=== PATIENT | female | born 1945 | race Two or more races ===

== ENCOUNTER 2016-11-15 09:42 | Inpatient (IN) | payer MEDICARE, OTHER ==
[2016-11-15 09:48] VITALS: BMI 22.4
[2016-11-15] MEDS ORDERED: SODIUM CHLORIDE 1,000 ML IV STA (10:00)
--- NOTE | 2016-11-15 10:00 | PDOC ---
History of Present Illness - History of Present Illness Initial Comments: 11/15/16 10:39 The patient is a 70 year old female with past medical history of Alzheimer's, GERD, acute cholecystitis (Jan 2016), hemorrhoids, and 9 hour daily home health aide, who presents to the emergency department with complaints of nausea, right lower abdominal pain, right flank pain, and a mouth full saliva today. The patient's provides the history as the patient is not engaged and the home health aide also presents at bedside. The patient was found by her crying with pain to her right lower quadrant and right suprapubic regions. The patients reports did not eat much this weekend, but states she drank a bottle of Ensure and about 8fl.oz. of Gatorade today. The patients also reports pink, foul smelling urine today. Allergies: NKDA Social history: Pt lives home with . PCP - Dr. Delcid <Inge Hutson - Last Filed: 11/15/16 10:39> - General History Source: Patient Exam Limitations: No Limitations <Cynthia Page - Last Filed: 11/15/16 15:15> - General Chief Complaint: Pain Stated Complaint: NAUSEA/VOMITING Time Seen by Provider: 11/15/16 09:53 Past History <Inge Hutson - Last Filed: 11/15/16 10:39> - Past Medical History Dementia: Yes - Psycho/Social/Smoking Cessation Hx Anxiety: No Suicidal Ideation: No Smoking History: Never smoked Have you smoked in the past 12 months: No Information on smoking cessation initiated: No Hx Alcohol Use: No Drug/Substance Use Hx: No Substance Use Type: None Hx Substance Use Treatment: No <Cynthia Page - Last Filed: 11/15/16 15:15> - Past Medical History Allergies/Adverse Reactions: Allergies Allergy/AdvReac Type Severity Reaction Status Date / Time No Known Allergies Allergy Verified 11/15/16 09:45 Home Medications: Ambulatory Orders Docusate Sodium [Colace -] 100 mg PO BID 01/22/16 Donepezil HCl [Aricept] 10 mg PO DAILY 01/22/16 Quetiapine Fumarate [Seroquel -] 50 mg PO BID 01/22/16 Mirtazapine 15 mg PO HS 11/15/16 Ranitidine [Zantac -] 150 mg PO DAILY 11/15/16 Review of Systems - Review of Systems Able to Perform ROS?: No (alzheimers) <Inge Hutson - Last Filed: 11/15/16 10:39> *Physical Exam - Vital Signs Last Vital Signs Temp Pulse Resp BP Pulse Ox 94 H 18 190/100 100 11/15/16 09:45 11/15/16 09:45 11/15/16 09:45 11/15/16 09:45 - Physical Exam Comments: 11/15/16 10:39 GENERAL: The patient is awake and confused at baseline. The patient is in no acute distress. HEAD: Normal with no signs of trauma. EYES: PERRLA, EOMI, sclera anicteric, conjunctiva clear. ENT: Ears normal, nares patent, oropharynx clear without exudates. Moist mucous membranes. NECK: Normal range of motion, supple without lymphadenopathy, JVD, or masses. LUNGS: (+) Pt is coughing on exam reproductive of clear sputum. Breath sounds equal, clear to auscultation bilaterally. No wheezes, and no crackles. HEART:Regular rate and rhythm, normal S1 and S2 without murmur, rub or gallop. ABDOMEN: (+) mild RLQ tenderness. Right sided CVA tenderness. Soft, normoactive bowel sounds. No guarding, no rebound. No masses palpable. EXTREMITIES: Normal range of motion, no edema. No clubbing or cyanosis. No erythema, or tenderness. NEUROLOGICAL: Cranial nerves II through XII grossly intact. No focal neurological deficits. SKIN: Warm, Dry, normal turgor, no rashes or lesions noted. <Inge Hutson - Last Filed: 11/15/16 10:39> - Vital Signs Last Vital Signs Temp Pulse Resp BP Pulse Ox 94 H 18 190/100 100 11/15/16 09:45 11/15/16 09:45 11/15/16 09:45 11/15/16 09:45 <Cynthia Page - Last Filed: 11/15/16 15:15> Heart Score/ECG Review #1 ECG reviewed & interpreted by me at: 11:02 General ECG Interpretation: Sinus Rhythm, Normal Rate, Normal Intervals 11/15/16 11:02 artifact v2 flattened tracing aVL <Cynthia Page - Last Filed: 11/15/16 15:15> ED Treatment Course - LABORATORY CBC & Chemistry Diagram: 11/15/16 10:18 11/15/16 10:18 <Cynthia Page - Last Filed: 11/15/16 15:15> Medical Decision Making - Medical Decision Making 11/15/16 10:00 A portion of this note was documented by scribe services under my direction. I have reviewed the details of the note, within reason, and agree with the documentation with the following case summary and management plan written by me. Nursing documentation reviewed and incorporated into medical decision making This patient is a 71-year-old female with a past medical history significant for Alzheimer's dementia, GERD, admission in January for a cactus cholecystitis (per family patient has not had an interval cholecystectomy). Patient presents emergency department with family due to abdominal pain which is been present for the past 2 days Pt awoke this morning with more severe pain (+) nausea (+) vomiting Family doesn't know if she has had a fever 11/15/16 10:55 Rectal temp 100.9 Tylenol ordered 11/15/16 10:55 11/15/16 11:36 Laboratory Tests 11/15/16 11/15/16 11/15/16 10:18 10:18 10:18 WBC 14.0 H D Hgb 13.5 D Hct 41.0 D Plt Count 258 D Neutrophils % 83.7 H D Lymphocytes % 9.7 D VBG pH 7.42 POC VBG pCO2 44.5 POC VBG pO2 26.2 L Mixed VBG HCO3 28.4 H Sodium 137 Potassium 4.0 Chloride 102 Carbon Dioxide 29 BUN 16 D Creatinine 0.8 Random Glucose 97 AST 16 ALT 26 D Creatine Kinase 85 Troponin I < 0.02 Total Amylase Lipase 11/15/16 10:18 WBC Hgb Hct Plt Count Neutrophils % Lymphocytes % VBG pH POC VBG pCO2 POC VBG pO2 Mixed VBG HCO3 Sodium Potassium Chloride Carbon Dioxide BUN Creatinine Random Glucose AST ALT Creatine Kinase Troponin I Total Amylase 120 H Lipase 496 H Of note: Amylase and Lipase are elevated 11/15/16 12:46 Laboratory Tests 11/15/16 10:18 Urine Appearance Slcloudy Urine Ketones Negative Urine Blood Negative Ur Leukocyte Esterase 2+ H Awaiting CT 11/15/16 15:12 CT demonstrates enlarged gall bladder, PCCF, no wall thickening intra hepatic ductal dilitations Will do US Will give Zosyn (pt has WBC 14, + UA, possible early cholecystitis) Will admit <Cynthia Page - Last Filed: 11/15/16 15:15> *DC/Admit/Observation/Transfer - Attestations Scribe Attestion: 11/15/16 10:42 Documentation prepared by Inge Hutson, acting as pediatric medical assistant for Cynthia Page MD <Inge Hutson - Last Filed: 11/15/16 10:39> - Discharge Dispostion Admit: Yes <Cynthia Page - Last Filed: 11/15/16 15:15> Diagnosis at time of Disposition: Pancreatitis due to biliary obstruction Qualifiers: Chronicity: acute Acute pancreatitis complication: unspecified Qualified Code(s ): K85.10 - Biliary acute pancreatitis without necrosis or infection Cholelithiasis Qualifiers: Cholelithiasis location: gallbladder Cholecystitis presence: with cholecystitis Cholecystitis acuity: unspecified acuity Biliary obstruction: with biliary obstruction Qualified Code(s): K80.01 - Calculus of gallbladder with acute cholecystitis with obstruction - Discharge Dispostion Condition at time of disposition: Stable
[2016-11-15] MEDS ORDERED: morphine CARPU-JECT 4 MG/1 ML DISP.SYRIN IVPUSH ONE (10:10)
[2016-11-15] MEDS ORDERED: ONDANSETRON 4 MG/2 ML VIAL IVPUSH ONE (10:10)
[2016-11-15] MEDS ORDERED: morphine CARPU-JECT 4 MG/1 ML DISP.SYRIN ONE (10:53)
[2016-11-15] MEDS ORDERED: ONDANSETRON 4 MG/2 ML VIAL ONE (10:53)
[2016-11-15 10:54] LABS: BASOPHIL 0.2 % (0-2.0); EOSINOPHIL 0.4 % (0-4.5); MCH 29.4 pg (25.7-33.7); MCHC 32.9 g/dl (32.0-36.0); MEAN CELL VOLUME 89.4 fl (80-96); NEUTROPHILS 83.7 % (42.8-82.8); PLATELET COUNT 258 K/MM3 (134-434)
[2016-11-15] MEDS ORDERED: ACETAMINOPHEN INJECTION 100 ML IVPB ONE (10:54)
[2016-11-15 11:01] LABS: VENOUS BLOOD GAS HCO3 28.4 meq/L (19-25); VENOUS PH 7.42 (7.32-7.42)
[2016-11-15 11:06] LABS: AMYLASE 120 U/L (25-115)
[2016-11-15 11:09] LABS: INR 1.18 (0.82-1.09)
[2016-11-15 11:11] LABS: ACTIVATED PTT 26.6 SECONDS (26.9-34.4)
[2016-11-15 11:12] LABS: ANION GAP 6 (8-16); BILIRUBIN,TOTAL 1.2 mg/dL (0.2-1.0); CALCIUM 9.8 mg/dL (8.5-10.1); CO2 29 mmol/L (21-32); CPK 85 IU/L (26-192); CREATININE 0.8 mg/dL (0.55-1.02); GLUCOSE,RANDOM 97 mg/dL (74-106); SGOT/AST 16 U/L (15-37); SGPT/ALT 26 U/L (12-78); TOT PROT 7.4 g/dl (6.4-8.2)
--- NOTE | 2016-11-15 11:12 | EKG ---
Test Reason : Blood Pressure : / mmHG Vent. Rate : 071 BPM Atrial Rate : 071 BPM P-R Int : 136 ms QRS Dur : 072 ms QT Int : 390 ms P-R-T Axes : 071 054 051 degrees QTc Int : 423 ms SUBOPTIMAL TRACING,BASELINE ARTIFACTS. NORMAL SINUS RHYTHM NONSPECIFIC T WAVE ABNORMALITY ABNORMAL ECG WHEN COMPARED WITH ECG OF 21-JAN-2016 21:51, NO SIGNIFICANT CHANGE WAS FOUND Confirmed by CHARLES CARLSON MD ([id number]) on 11/15/2016 11:12:21 AM Referred By: Confirmed By:CHARLES CARLSON MD
[2016-11-15 11:13] LABS: ALK PHOS 78 U/L (45-117)
[2016-11-15 11:14] LABS: TROPONIN I < 0.02 ng/ml (0.00-0.05)
[2016-11-15 11:40] LABS: URINE APPEARANCE SLCLOUDY; URINE BILIRUBIN NEGATIVE (NEGATIVE); URINE BLOOD NEGATIVE (NEGATIVE); URINE COLOR AMBER; URINE GLUCOSE (UA) NEGATIVE (NEGATIVE); URINE KETONE NEGATIVE (NEGATIVE); URINE NITRITE NEGATIVE (NEGATIVE); URINE UROBILINOGEN NEGATIVE mg/dL (0.2-1.0)
[2016-11-15 12:38] LABS: URINE LEUK ESTERASE 2+ (NEGATIVE); URINE PROTEIN 2+ (NEGATIVE)
[2016-11-15 13:13] LABS: URINE HYALINE CAST 5 /lpf; URINE MUCUS MANY; URINE RBC 3 /hpf (0-3); URINE WBC 48 /hpf (3-5)
[2016-11-15] MEDS ORDERED: PIPERACILLIN/TAZOB 3.375 GM/50 ML PRE-DOCKED IVPB ONE (14:35)
[2016-11-15] MEDS ORDERED: PIPERACILLIN/TAZOB 3.375 GM 50 ML IVPB ONE (14:43)
[2016-11-15] MEDS: LACTATED RINGERS SOLUTION 1,000 ML IV SCH (15:11)
[2016-11-15] MEDS ORDERED: ONDANSETRON 4 MG/2 ML VIAL IVPB PRN (15:48)
[2016-11-15] MEDS ORDERED: SODIUM CHLORIDE 1,000 ML IV SCH (16:00)
--- NOTE | 2016-11-15 16:00 | HP ---
CHIEF COMPLAINT: RLQ, SUPRAPUBIC, AND RIGHT FLANK PAIN PCP: Dr. Delcid HISTORY OF PRESENT ILLNESS: 71 y.o. F with mph of Alzheimer's, GERD, acute cholecystitis (Jan 2016), hemorrhoids, and 9 hour daily home health aide presents with RLQ abdominal pain , right flank pain, and subrapubic tenderness. Hx provided by patient's due to alzheimer's and patient is nonverbal. states patient has been having worsening RLQ abdominal and flank pain over the past 3 days. Patient has had a decreased appetite and had multiple episodes of blood tinged emesis on Monday night into Monday morning. felt patient's pain was worsening and urine was smelling foul with dysuria, so he brought her in to the ED ER course was notable for: (1)WBC-14, Amylase- 120, Lipase- 496 (2)UA- 2+ LE, 48 WBC (3)CT abd pelvis- overdistended gb with pericholecystic fluid, normal CBD, (4)US abd- slightly distended gallbladder with multiple gallstones. no evidence of choledhocolithiasis or acute cholecystitis Recent Travel: denies PAST MEDICAL HISTORY: Alzheimer's GERD Hemorrhoids PAST SURGICAL HISTORY: Colonoscopy Hemorrhoid Resection Social History: Smoking:denies Alcohol:occasional Drugs: denies Family History: DM in mother Allergies No Known Allergies Allergy (Verified 11/15/16 09:45) HOME MEDICATIONS: Home Medications Medication Instructions Recorded Docusate Sodium [Colace -] 100 mg PO BID 01/22/16 Donepezil HCl [Aricept] 10 mg PO DAILY 01/22/16 Quetiapine Fumarate [Seroquel -] 50 mg PO BID 01/22/16 Mirtazapine 15 mg PO HS 11/15/16 Ranitidine [Zantac -] 150 mg PO DAILY 11/15/16 REVIEW OF SYSTEMS CONSTITUTIONAL: Absent: fever, chills, diaphoresis, generalized weakness, malaise, loss of appetite, weight change HEENT: Absent: rhinorrhea, nasal congestion, throat pain, throat swelling, difficulty swallowing, mouth swelling, ear pain, eye pain, visual changes CARDIOVASCULAR: Absent: chest pain, syncope, palpitations, irregular heart rate, lightheadedness , peripheral edema RESPIRATORY: Absent: cough, shortness of breath, dyspnea with exertion, orthopnea, wheezing, stridor, hemoptysis GASTROINTESTINAL: Absent: abdominal pain, abdominal distension, nausea, vomiting, diarrhea, constipation, melena, hematochezia GENITOURINARY: Absent: dysuria, frequency, urgency, hesitancy, hematuria, flank pain, genital pain MUSCULOSKELETAL: Absent: myalgia, arthralgia, joint swelling, back pain, neck pain SKIN: Absent: rash, itching, pallor HEMATOLOGIC/IMMUNOLOGIC: Absent: easy bleeding, easy bruising, lymphadenopathy, frequent infections ENDOCRINE: Absent: unexplained weight gain, unexplained weight loss, heat intolerance, cold intolerance NEUROLOGIC: Absent: headache, focal weakness or paresthesias, dizziness, unsteady gait, seizure, mental status changes, bladder or bowel incontinence PSYCHIATRIC: Absent: anxiety, depression, suicidal or homicidal ideation, hallucinations. PHYSICAL EXAMINATION Vital Signs - 24 hr 11/15/16 11/15/16 11/15/16 09:45 10:43 15:10 Pulse Rate 94 H Pulse Rate [ 76 Apical] Respiratory 18 18 Rate Blood Pressure 190/100 Blood Pressure 115/75 [Right Arm] O2 Sat by Pulse 100 97 98 Oximetry (%) GENERAL: Awake, alert, and fully oriented, in no acute distress. HEAD: Normal with no signs of trauma. EYES: Pupils equal, round and reactive to light, extraocular movements intact, sclera anicteric, conjunctiva clear. No lid lag. EARS, NOSE, THROAT: Ears normal, nares patent, oropharynx clear without exudates. Moist mucous membranes. NECK: Normal range of motion, supple without lymphadenopathy, JVD, or masses. LUNGS: Breath sounds equal, clear to auscultation bilaterally. No wheezes, and no crackles. No accessory muscle use. HEART: Regular rate and rhythm, normal S1 and S2 without murmur, rub or gallop. ABDOMEN: Soft, RUQ AND RLQ TENDERNESS, RIGHT SUPRAPUBIC TENDERNESS, not distended, normoactive bowel sounds, no guarding, no rebound, no masses. No hepatomegaly or splenomegaly. MUSCULOSKELETAL: Normal range of motion at all joints. No bony deformities or tenderness. UPPER EXTREMITIES: 2+ pulses, warm, well-perfused. No cyanosis. No clubbing. No peripheral edema. LOWER EXTREMITIES: 2+ pulses, warm, well-perfused. No calf tenderness. No peripheral edema. NEUROLOGICAL: Cranial nerves II-XII intact. Normal speech. Normal gait. PSYCHIATRIC: Cooperative. Good eye contact. Appropriate mood and affect. SKIN: Warm, dry, normal turgor, no rashes or lesions noted, normal capillary refill. Laboratory Results - last 24 hr 11/15/16 11/15/16 11/15/16 10:18 10:18 10:18 WBC 14.0 H D RBC 4.59 Hgb 13.5 D Hct 41.0 D MCV 89.4 MCH 29.4 MCHC 32.9 RDW 13.0 Plt Count 258 D MPV 8.0 Neutrophils % 83.7 H D Lymphocytes % 9.7 D Monocytes % 6.0 Eosinophils % 0.4 D Basophils % 0.2 INR 1.18 H PTT (Actin FS) 26.6 L VBG pH POC VBG pCO2 POC VBG pO2 Mixed VBG HCO3 Sodium Potassium Chloride Carbon Dioxide Anion Gap BUN Creatinine Creat Clearance w eGFR Random Glucose Lactic Acid Calcium Total Bilirubin AST ALT Alkaline Phosphatase Creatine Kinase Troponin I Total Protein Albumin Total Amylase Lipase Urine Color Ofe Urine Appearance Slcloudy Urine pH 5.0 Urine Protein 2+ H Urine Glucose (UA) Negative Urine Ketones Negative Urine Blood Negative Urine Nitrite Negative Urine Bilirubin Negative Urine Urobilinogen Negative Ur Leukocyte Esterase 2+ H Urine RBC 3 Urine WBC 48 Ur Epithelial Cells Rare Hyaline Casts 5 Urine Mucus Many Blood Type Antibody Screen 11/15/16 11/15/16 11/15/16 10:18 10:18 10:18 WBC RBC Hgb Hct MCV MCH MCHC RDW Plt Count MPV Neutrophils % Lymphocytes % Monocytes % Eosinophils % Basophils % INR PTT (Actin FS) VBG pH 7.42 POC VBG pCO2 44.5 POC VBG pO2 26.2 L Mixed VBG HCO3 28.4 H Sodium 137 Potassium 4.0 Chloride 102 Carbon Dioxide 29 Anion Gap 6 L BUN 16 D Creatinine 0.8 Creat Clearance w eGFR > 60 Random Glucose 97 Lactic Acid 1.7 Calcium 9.8 Total Bilirubin 1.2 H D AST 16 ALT 26 D Alkaline Phosphatase 78 Creatine Kinase 85 Troponin I < 0.02 Total Protein 7.4 Albumin 4.0 Total Amylase Lipase Urine Color Urine Appearance Urine pH Urine Protein Urine Glucose (UA) Urine Ketones Urine Blood Urine Nitrite Urine Bilirubin Urine Urobilinogen Ur Leukocyte Esterase Urine RBC Urine WBC Ur Epithelial Cells Hyaline Casts Urine Mucus Blood Type Antibody Screen 11/15/16 11/15/16 10:18 10:18 WBC RBC Hgb Hct MCV MCH MCHC RDW Plt Count MPV Neutrophils % Lymphocytes % Monocytes % Eosinophils % Basophils % INR PTT (Actin FS) VBG pH POC VBG pCO2 POC VBG pO2 Mixed VBG HCO3 Sodium Potassium Chloride Carbon Dioxide Anion Gap BUN Creatinine Creat Clearance w eGFR Random Glucose Lactic Acid Calcium Total Bilirubin AST ALT Alkaline Phosphatase Creatine Kinase Troponin I Total Protein Albumin Total Amylase 120 H Lipase 496 H Urine Color Urine Appearance Urine pH Urine Protein Urine Glucose (UA) Urine Ketones Urine Blood Urine Nitrite Urine Bilirubin Urine Urobilinogen Ur Leukocyte Esterase Urine RBC Urine WBC Ur Epithelial Cells Hyaline Casts Urine Mucus Blood Type B POSITIVE Antibody Screen Negative ASSESSMENT/PLAN: 71 year old F with pmh of Alzheimer's, GERD, acute cholecystitis (Jan 2016) presented with RLQ, suprapubic pain, and right flank pain admitted for distended gallbladder and UTI #Distended gallbladder w/ cholelithiasis and intractable vomiting -IVF @75 cc/hr -GI consulted, Dr. Feliciano -Morphine 1 mg q4h prn -Surgery consulted, Dr. Stein -Repeat amylase and lipase in the AM #UTI -Received dose of zosyn in the ED -Continue IV zosyn 3.375 gm q8h -ID consulted, Dr. Franklin #Alzheimers -Continue aricept 10 mg po daily #Agitation -Continue seroquel 50 mg po bid #insomnia -Continue mirtazapine 15 mg po hs #GERD -Continue Zantac 150 mg po daily #FEN/GI -IVF NS @ 75 cc/hr -electrolytes wnl -NPO #Ppx -DVT- Heparin 5000 units sq BID -GI- Zantac 150 mg po daily Visit type - Emergency Visit Emergency Visit: Yes ED Registration Date: 11/15/16 Care time: The patient presented to the Emergency Department on the above date and was hospitalized for further evaluation of their emergent condition. - New Patient This patient is new to me today: Yes Date on this admission: 11/15/16 - Critical Care Critical Care patient: No
--- NOTE | 2016-11-15 16:17 | HP ---
CHIEF COMPLAINT: Abdominal pain PCP:Dr. Delcid HISTORY OF PRESENT ILLNESS: 70 yo F with significant PMhx of Alzheimer's, GERD and acute cholecystitis( ) presents today with and home health aide with 3 day history of of abdominal pain. History taken from and aide as patient limiting by severe dementia. states that for the past 3 days she has been complaining of worsening RLQ abdominal pain with associated nausea and NBNB vomiting. He appetite has diminished as well. also notes that she has been complaining of dysuria and foul smelling dark urine with no blood. denies fever, chills, melena or sick contacts. ER course was notable for: (1)WBC-14, Amylase- 120, Lipase- 496 (2)UA- 2+ LE, 48 WBC (3)CT abd pelvis- overdistended gb with pericholecystic fluid, normal CBD, (4)US abd- slightly distended gallbladder with multiple gallstones. no evidence of choledhocolithiasis or acute cholecystitis Recent Travel:Denies PAST MEDICAL HISTORY:Alzheimer's, GERD and acute cholecystitis PAST SURGICAL HISTORY:Colonoscopy and hemorrhoid resection Social History: Smoking:denies Alcohol:socially Drugs: denies Family History: Allergies No Known Allergies Allergy (Verified 11/15/16 09:45) HOME MEDICATIONS: Home Medications Medication Instructions Recorded Docusate Sodium [Colace -] 100 mg PO BID 01/22/16 Donepezil HCl [Aricept] 10 mg PO DAILY 01/22/16 Quetiapine Fumarate [Seroquel -] 50 mg PO BID 01/22/16 Mirtazapine 15 mg PO HS 11/15/16 Ranitidine [Zantac -] 150 mg PO DAILY 11/15/16 REVIEW OF SYSTEMS Unable to obtain secondary to severe dementia. PHYSICAL EXAMINATION GENERAL: Awake and alert but confused. HEAD: NC/AT EYES: Pupils equal, round and reactive to light, extraocular movements intact, sclera anicteric, conjunctiva clear. No lid lag. EARS, NOSE, THROAT: Ears normal, nares patent, oropharynx clear without exudates. Moist mucous membranes. NECK: Normal range of motion, supple without lymphadenopathy, JVD, or masses. LUNGS: Breath sounds equal, clear to auscultation bilaterally. No wheezes, and no crackles. No accessory muscle use. HEART: Regular rate and rhythm, normal S1 and S2 without murmur, rub or gallop. ABDOMEN: Soft, RLQ tenderness, not distended, normoactive bowel sounds, no guarding, no rebound, no masses. No hepatomegaly or splenomegaly. MUSCULOSKELETAL: Normal range of motion at all joints. No bony deformities or tenderness. R sided CVA tenderness. UPPER EXTREMITIES: 2+ pulses, warm, well-perfused. No cyanosis. No clubbing. No peripheral edema. LOWER EXTREMITIES: 2+ pulses, warm, well-perfused. No calf tenderness. No peripheral edema. NEUROLOGICAL: Cranial nerves II-XII intact. Normal speech. Normal gait. PSYCHIATRIC: Cooperative. Good eye contact. Appropriate mood and affect. SKIN: Warm, dry, normal turgor, no rashes or lesions noted, normal capillary refill. ASSESSMENT/PLAN: 70 yo F with significant PMhx of Alzheimer's, GERD and acute cholecystitis( ) admitted for intractable abdominal pain. Problem List - Problem (1) Acute cholecystitis Assessment/Plan: * Pain control * Consult Dr. Feliciano (GI) * Consult Dr. Espana (surgery) * IVF with NS @ 100ml/hr * NPO for now * Continue Zosyn. Code(s): K81.0 - ACUTE CHOLECYSTITIS (2) Alzheimer disease Assessment/Plan: * Continue Donepezil (3) UTI (urinary tract infection) Assessment/Plan: * Continue Zosyn * ID consult. Visit type - Emergency Visit Emergency Visit: Yes ED Registration Date: 11/15/16 Care time: The patient presented to the Emergency Department on the above date and was hospitalized for further evaluation of their emergent condition. - New Patient This patient is new to me today: Yes Date on this admission: 11/16/16 - Critical Care Critical Care patient: No
[2016-11-15] MEDS ORDERED: QUEtiapine FUMARATE 50 MG TABLET PO ONE (17:29)
[2016-11-15] MEDS ORDERED: QUEtiapine FUMARATE 25 MG TABLET (FP) ONE (17:30)
[2016-11-15] MEDS: SODIUM CHLORIDE 1,000 ML IV SCH ×2 (17:41→23:30)
--- NOTE | 2016-11-15 17:50 | PN ---
Teaching Attending Note Name of Resident: Chas Posadas ATTENDING PHYSICIAN STATEMENT I saw and evaluated the patient. I reviewed the resident's note and discussed the case with the resident. I agree with the resident's findings and plan as documented. SUBJECTIVE: Patient is alzhemer's disease, not aware of her surrounding. As per c/o having mid-epigastric pain. OBJECTIVE: Vital Signs Temperature Pulse Rate 76 11/15/16 15:10 Respiratory Rate 18 11/15/16 15:10 Blood Pressure 115/75 11/15/16 15:10 O2 Sat by Pulse Oximetry (%) 98 11/15/16 15:10 CBCD WBC 14.0 K/mm3 (4.0-10.0) H D 11/15/16 10:18 RBC 4.59 M/mm3 (3.60-5.2) 11/15/16 10:18 Hgb 13.5 GM/dL (10.7-15.3) D 11/15/16 10:18 Hct 41.0 % (32.4-45.2) D 11/15/16 10:18 MCV 89.4 fl (80-96) 11/15/16 10:18 MCHC 32.9 g/dl (32.0-36.0) 11/15/16 10:18 RDW 13.0 % (11.6-15.6) 11/15/16 10:18 Plt Count 258 K/MM3 (134-434) D 11/15/16 10:18 MPV 8.0 fl (7.5-11.1) 11/15/16 10:18 CMP Sodium 137 mmol/L (136-145) 11/15/16 10:18 Potassium 4.0 mmol/L (3.5-5.1) 11/15/16 10:18 Chloride 102 mmol/L (98-107) 11/15/16 10:18 Carbon Dioxide 29 mmol/L (21-32) 11/15/16 10:18 Anion Gap 6 (8-16) L 11/15/16 10:18 BUN 16 mg/dL (7-18) D 11/15/16 10:18 Creatinine 0.8 mg/dL (0.55-1.02) 11/15/16 10:18 Creat Clearance w eGFR > 60 (>60) 11/15/16 10:18 Random Glucose 97 mg/dL (74-106) 11/15/16 10:18 Calcium 9.8 mg/dL (8.5-10.1) 11/15/16 10:18 Total Bilirubin 1.2 mg/dL (0.2-1.0) H D 11/15/16 10:18 AST 16 U/L (15-37) 11/15/16 10:18 ALT 26 U/L (12-78) D 11/15/16 10:18 Alkaline Phosphatase 78 U/L (45-117) 11/15/16 10:18 Total Protein 7.4 g/dl (6.4-8.2) 11/15/16 10:18 Albumin 4.0 g/dl (3.4-5.0) 11/15/16 10:18 CARDIAC ENZYMES Creatine Kinase 85 IU/L (26-192) 11/15/16 10:18 Troponin I < 0.02 ng/ml (0.00-0.05) 11/15/16 10:18 Current Medications Generic Name Dose Route Start Last Admin Trade Name Freq PRN Reason Stop Dose Admin Donepezil HCl 10 mg 11/16/16 10:00 Aricept - PO DAILY VALE Heparin Sodium (Porcine) 5,000 unit 11/15/16 22:00 Heparin - SQ BID VALE Lactated Ringer's 1,000 mls @ 100 mls/hr 11/15/16 14:15 11/15/16 15:11 Lactated Ringers Solution IV 100 mls/hr ASDIR VALE Administration Piperacillin Sod/Tazobactam Sod 50 mls @ 100 mls/hr 11/16/16 02:00 Zosyn 3.375gm Ivpb (Pre-Docked) IVPB Q8H-IV VALE Protocol Sodium Chloride 1,000 mls @ 100 mls/hr 11/15/16 16:38 11/15/16 17:41 Normal Saline - IV Not Given ASDIR VALE Mirtazapine 15 mg 11/15/16 22:00 Remeron - PO HS VALE Morphine Sulfate 1 mg 11/15/16 16:40 Morphine Injection - IVPUSH Q4H PRN PAIN Ondansetron HCl 4 mg 11/15/16 15:48 Zofran Injection IVPB Q6H PRN NAUSEA Quetiapine Fumarate 50 mg 11/15/16 22:00 Seroquel - PO BID [facility] Ranitidine HCl 150 mg 11/16/16 10:00 Zantac - PO DAILY [facility] Home Medications Medication Instructions Recorded Docusate Sodium [Colace -] 100 mg PO BID 01/22/16 Donepezil HCl [Aricept] 10 mg PO DAILY 01/22/16 Quetiapine Fumarate [Seroquel -] 50 mg PO BID 01/22/16 Mirtazapine 15 mg PO HS 11/15/16 Ranitidine [Zantac -] 150 mg PO DAILY 11/15/16 Abdomen: Mild tenderness on palpation. ASSESSMENT AND PLAN: 71 year old F with pmh of Alzheimer's, GERD, acute cholecystitis (Jan 2016) presented with RLQ, suprapubic pain, and right flank pain admitted for distended gallbladder and UTI # Acute Intractable vomiting with distended gallbladder w/ cholelithiasis , NPO , IVF, GI consulted, Dr. Feliciano as per family, Morphine 1 mg q4h prn for pain -Surgery consulted, Dr. Stein, Repeat amylase and lipase in the AM, On IV Zosyn 3.375gm q8h # Acute UTI s/p one dose of zosyn in the ED, Continue IV zosyn 3.375 gm q8h; ID consulted, Dr. Franklin #Hx of Alzheimers continue aricept 10 mg po daily # Hx of insomnia/ Agitation/Gerd continue meds DVT Px: Heparin 5000 units sq BID GI Px: Pepcid IV
[2016-11-15] MEDS: FAMOTIDINE 20 MG/50 ML IVPB 50 ML IVPB SCH (23:29)
[2016-11-15] MEDS: MIRTAZAPINE 15 MG TABLET (FP) PO SCH (23:31)
[2016-11-15] MEDS: HEPARIN NA (PORCINE) 5,000 UNITS/ML 1ML VIAL SQ SCH (23:31)
[2016-11-15] MEDS: QUEtiapine FUMARATE 50 MG TABLET PO SCH (23:32)
[2016-11-16] MEDS ORDERED: DEXTROSE 5%-WATER - 50 ML IVPB ONE ×3 (01:23→17:25)
[2016-11-16] MEDS ORDERED: PIPERACILLIN/TAZOBACTAM 3.375 GM VIAL IVPB ONE ×3 (01:23→17:25)
[2016-11-16] MEDS: PIPERACILLIN/TAZOB 3.375 GM 3.375 GM in DEXTROSE 5%-WATER - 50 ML IVPB SCH ×3 (01:31→19:00)
[2016-11-16] MEDS ORDERED: PIPERACILLIN/TAZOB 3.375 GM 50 ML IVPB SCH (02:00)
[2016-11-16] MEDS: morphine CARPU-JECT 2 MG/1 ML DISP.SYRIN IVPUSH PRN ×3 (05:00→15:31)
--- NOTE | 2016-11-16 08:01 | PN ---
Progress Note (short form) - Note Progress Note: Attending Surgeon Patient seen and evaluated w/ at bedside; full note to follow.
[2016-11-16] MEDS ORDERED: QUEtiapine FUMARATE 25 MG TABLET (FP) ONE ×2 (08:17→21:16)
[2016-11-16] MEDS ORDERED: PT OWN MED DRAWER 7, Y5N ONE (08:17)
[2016-11-16 08:21] LABS: BASOPHIL 0.5 % (0-2.0); EOSINOPHIL 1.3 % (0-4.5); MCH 30.2 pg (25.7-33.7); MCHC 33.9 g/dl (32.0-36.0); MEAN CELL VOLUME 89.1 fl (80-96); MEAN PLT VOLUME 8.3 fl (7.5-11.1); NEUTROPHILS 83.8 % (42.8-82.8); PLATELET COUNT 176 K/MM3 (134-434); WHITE BLOOD COUNT 10.3 K/mm3 (4.0-10.0)
[2016-11-16 08:49] LABS: ALBUMIN 3.2 g/dl (3.4-5.0); ALK PHOS 143 U/L (45-117); AMYLASE 71 U/L (25-115); ANION GAP 6 (8-16); BILIRUBIN,TOTAL 1.5 mg/dL (0.2-1.0); CALCIUM 8.6 mg/dL (8.5-10.1); CO2 31 mmol/L (21-32); GLUCOSE,RANDOM 122 mg/dL (74-106)
[2016-11-16 08:51] LABS: CREATININE 0.7 mg/dL (0.55-1.02); SGOT/AST 208 U/L (15-37); SGPT/ALT 141 U/L (12-78); TOT PROT 6.1 g/dl (6.4-8.2)
[2016-11-16] MEDS: FAMOTIDINE 20 MG/50 ML IVPB 50 ML IVPB SCH ×2 (09:11→22:27)
[2016-11-16] MEDS: HEPARIN NA (PORCINE) 5,000 UNITS/ML 1ML VIAL SQ SCH ×2 (09:12→22:27)
--- NOTE | 2016-11-16 09:49 | CONSULT ---
- Consultation REQUESTING PROVIDER: Julio RAMON CONSULT REQUEST: We have been asked to surgically evaluate this patient for abdominal pain PCP:Kenna Omer HISTORY OF PRESENT ILLNESS: 71 y/o female presented w/ ? abdominal pain ? of origin in the RUQ w/ ? nausea and/or vomiting. She was last here 01/[address] scan of the a/p was done for ? abdominal pain ? of unknown origin; this was done as she is not able to give an adequate hx. b/o her Alzheimers; she was admitted w/ " acute cholecystitis" and txed conservatively and d/c'ed to OPD f/u for an " elective" lap terrell; she never had the f/u; I obtained this hx. from the old chart and the patients ; there was also a ? w/u ? at [facility] to r/o a pancreatic malignancy which was negative a/t her PMHx: Alzheimers PSHx: GLORY Home Medications Medication Instructions Recorded Docusate Sodium [Colace -] 100 mg PO BID 01/22/16 Donepezil HCl [Aricept] 10 mg PO DAILY 01/22/16 Quetiapine Fumarate [Seroquel -] 50 mg PO BID 01/22/16 Mirtazapine 15 mg PO HS 11/15/16 Ranitidine [Zantac -] 150 mg PO DAILY 11/15/16 Allergies Allergy/AdvReac Type Severity Reaction Status Date / Time No Known Allergies Allergy Verified 11/15/16 09:45 REVIEW OF SYSTEMS: PHYSICAL EXAM: GENERAL: Awake, not alert, and not fully oriented, in no acute distress. HEAD: Normal with no signs of trauma. EYES: sclera anicteric, conjunctiva clear. ABDOMEN: Soft, nontender when distracted, not distended, normoactive bowel sounds, voluntary guarding, no rebound, no masses. No organomegaly. MUSCULOSKELETAL: Normal ROM at all joints. No bony deformities or tenderness. No CVA tenderness. UPPER EXTREMITIES: 2+ pulses, warm, well-perfused. No cyanosis. Cap refill <2 seconds. No peripheral edema. LOWER EXTREMITIES: 2+ pulses, warm, well-perfused. No calf tenderness. No peripheral edema. NEUROLOGICAL: Abnormal speech, gait not observed. PSYCH: Cooperative. Poor eye contact. Inappropriate mood and affect. SKIN: Warm, dry, normal turgor, no rashes or lesions noted. Vital Signs Temperature 98.6 F 11/16/16 08:43 Pulse Rate 79 11/16/16 08:43 Respiratory Rate 18 11/16/16 08:43 Blood Pressure 114/76 11/16/16 08:43 O2 Sat by Pulse Oximetry (%) 99 11/16/16 08:52 Lab Results WBC 10.3 K/mm3 (4.0-10.0) H 11/16/16 07:55 RBC 4.10 M/mm3 (3.60-5.2) 11/16/16 07:55 Hgb 12.4 GM/dL (10.7-15.3) 11/16/16 07:55 Hct 36.5 % (32.4-45.2) 11/16/16 07:55 MCV 89.1 fl (80-96) 11/16/16 07:55 MCHC 33.9 g/dl (32.0-36.0) 11/16/16 07:55 RDW 13.0 % (11.6-15.6) 11/16/16 07:55 Plt Count 176 K/MM3 (134-434) D 11/16/16 07:55 Sodium 141 mmol/L (136-145) 11/16/16 07:55 Potassium 3.5 mmol/L (3.5-5.1) 11/16/16 07:55 Chloride 104 mmol/L (98-107) 11/16/16 07:55 Carbon Dioxide 31 mmol/L (21-32) 11/16/16 07:55 Anion Gap 6 (8-16) L 11/16/16 07:55 BUN 10 mg/dL (7-18) D 11/16/16 07:55 Creatinine 0.7 mg/dL (0.55-1.02) 11/16/16 07:55 Random Glucose 122 mg/dL (74-106) H D 11/16/16 07:55 Calcium 8.6 mg/dL (8.5-10.1) 11/16/16 07:55 Blood Type B POSITIVE 11/15/16 10:18 Antibody Screen Negative 11/15/16 10:18 INR 1.18 (0.82-1.09) H 11/15/16 10:18 WBC normal today; LFT's elevated; imaging w/u past and present reviewed. IMP: cholelithiasis; biliary colic; r/o choledocholithiasis/acute cholecystitis PLAN: NPO/IVF/IVABS; would get HIDA scan and in light of todays elevated LFT's would get MRCP; will f/u. Cr Stein MD FACS Visit type - Case Type Case Type: ED Admission - Emergency Emergency Visit: Yes ED Registration Date: 11/15/16 Care time: The patient presented to the Emergency Department on the above date and was hospitalized for further evaluation of their emergent condition. - New patient This patient is new to me today: Yes Date on this admission: 11/16/16 - Critical Care Critical Care patient: No
[2016-11-16] MEDS ORDERED: RANITIDINE HCL 150 MG TABLET (FP) PO SCH (10:00)
[2016-11-16] MEDS: DONEPEZIL HCL 10 MG TABLET (FP) PO SCH (10:00)
[2016-11-16] MEDS: SODIUM CHLORIDE 1,000 ML IV SCH (10:00)
--- NOTE | 2016-11-16 10:27 | PN ---
Physical Exam: SUBJECTIVE: Patient seen and examined No acute events overnight. Patient still has pain this morning. OBJECTIVE: Vital Signs Period Temp Pulse Resp BP Sys/Dubon Pulse Ox Last 24 Hr 98 F-98.6 F 69-84 16-18 111-118/50-79 99-100 GENERAL: Awake, alert, and fully oriented, in no acute distress. HEAD: Normal with no signs of trauma. EYES: Pupils equal, round and reactive to light, extraocular movements intact, sclera anicteric, conjunctiva clear. No lid lag. EARS, NOSE, THROAT: Ears normal, nares patent, oropharynx clear without exudates. Moist mucous membranes. NECK: Normal range of motion, supple without lymphadenopathy, JVD, or masses. LUNGS: Breath sounds equal, clear to auscultation bilaterally. No wheezes, and no crackles. No accessory muscle use. HEART: Regular rate and rhythm, normal S1 and S2 without murmur, rub or gallop. ABDOMEN: Soft, RUQ AND RLQ TENDERNESS, RIGHT SUPRAPUBIC TENDERNESS, not distended, normoactive bowel sounds, no guarding, no rebound, no masses. No hepatomegaly or splenomegaly. MUSCULOSKELETAL: Normal range of motion at all joints. No bony deformities or tenderness. UPPER EXTREMITIES: 2+ pulses, warm, well-perfused. No cyanosis. No clubbing. No peripheral edema. LOWER EXTREMITIES: 2+ pulses, warm, well-perfused. No calf tenderness. No peripheral edema. NEUROLOGICAL: Cranial nerves II-XII intact. Normal speech. Normal gait. PSYCHIATRIC: Cooperative. Good eye contact. Appropriate mood and affect. SKIN: Warm, dry, normal turgor, no rashes or lesions noted, normal capillary refill. Laboratory Results - last 24 hr 11/16/16 11/16/16 07:55 07:55 WBC 10.3 H RBC 4.10 Hgb 12.4 Hct 36.5 MCV 89.1 MCH 30.2 MCHC 33.9 RDW 13.0 Plt Count 176 D MPV 8.3 Neutrophils % 83.8 H Lymphocytes % 9.0 Monocytes % 5.4 Eosinophils % 1.3 D Basophils % 0.5 Sodium 141 Potassium 3.5 Chloride 104 Carbon Dioxide 31 Anion Gap 6 L BUN 10 D Creatinine 0.7 Creat Clearance w eGFR > 60 Random Glucose 122 H D Calcium 8.6 Total Bilirubin 1.5 H D AST 208 H D ALT 141 H D Alkaline Phosphatase 143 H D Total Protein 6.1 L Albumin 3.2 L Total Amylase 71 D Lipase 221 Active Medications Generic Name Dose Route Start Last Admin Trade Name Freq PRN Reason Stop Dose Admin Donepezil HCl 10 mg 11/16/16 10:00 Aricept - PO DAILY VALE Heparin Sodium (Porcine) 5,000 unit 11/15/16 22:00 11/16/16 09:12 Heparin - SQ 5,000 unit BID VALE Administration Lactated Ringer's 1,000 mls @ 100 mls/hr 11/15/16 14:15 11/15/16 15:11 Lactated Ringers Solution IV 100 mls/hr ASDIR VALE Administration Sodium Chloride 1,000 mls @ 100 mls/hr 11/15/16 16:38 11/15/16 23:30 Normal Saline - IV 100 mls/hr ASDIR VALE Administration Famotidine/Sodium Chloride 50 mls @ 100 mls/hr 11/15/16 22:00 11/16/16 09:11 Pepcid 20 Mg Premixed Ivpb - IVPB 100 mls/hr BID VALE Administration Piperacillin Sod/Tazobactam 50 mls @ 100 mls/hr 11/16/16 02:00 11/16/16 01:31 Sod 3.375 gm/ Dextrose IVPB 100 mls/hr Q8H-IV VALE Administration Lorazepam 0.5 mg 11/16/16 10:10 Ativan Injection - IVPUSH 11/16/16 10:11 ONCE ONE Mirtazapine 15 mg 11/15/16 22:00 11/15/16 23:31 Remeron - PO Not Given HS VALE Morphine Sulfate 1 mg 11/15/16 16:40 11/16/16 08:39 Morphine Injection - IVPUSH 1 mg Q4H PRN Administration PAIN Ondansetron HCl 4 mg 11/15/16 15:48 Zofran Injection IVPB Q6H PRN NAUSEA Quetiapine Fumarate 50 mg 11/15/16 22:00 11/15/16 23:32 Seroquel - PO Not Given BID [facility] ASSESSMENT/PLAN: 71 year old F with pmh of Alzheimer's, GERD, acute cholecystitis (Jan 2016) presented with RLQ, suprapubic pain, and right flank pain admitted for distended gallbladder and UTI #Distended gallbladder w/ cholelithiasis and intractable vomiting -HIDA scan concerning for possible acute cholecystitis -IVF @75 cc/hr -GI consulted, Dr. Feliciano -Morphine 1 mg q4h prn -Surgery consulted, Dr. Stein -MRCP pending -Continue IV zosyn 3.375 gm q8h #UTI -Received dose of zosyn in the ED -Continue IV zosyn 3.375 gm q8h -ID consulted, Dr. Franklin #Alzheimers -Continue aricept 10 mg po daily #Agitation -Continue seroquel 50 mg po bid #insomnia -Continue mirtazapine 15 mg po hs #GERD -Continue Zantac 150 mg po daily #FEN/GI -IVF NS @ 75 cc/hr -electrolytes wnl -NPO #Ppx -DVT- Heparin 5000 units sq BID -GI- Zantac 150 mg po daily Visit type - Emergency Visit Emergency Visit: Yes ED Registration Date: 11/15/16 Care time: The patient presented to the Emergency Department on the above date and was hospitalized for further evaluation of their emergent condition. - New Patient This patient is new to me today: No - Critical Care Critical Care patient: No
--- NOTE | 2016-11-16 11:09 | PN ---
Progress Note (short form) - Note Progress Note: ID consult dictated imp/reccd 71 year old female lives at home with and PHYSIATRIST developed vomiting and abdominal pain 2 days ago fever yesterday +RUQ pain/right flank pain imaging with sono showing gallstones and ct scan with overdistended gallbladder- small amount pericholycytic fluid this am with abnl lfts for further imaging with HIDA and MRCP seen by surgery started on zosyn last night for possible cholycystitis and possible UTI will continue Problem List - Problems (1) Acute cholecystitis Code(s): K81.0 - ACUTE CHOLECYSTITIS (2) Cholelithiasis Code(s): K80.20 - CALCULUS OF GALLBLADDER W/O CHOLECYSTITIS W/O OBSTRUCTION Qualifiers: Cholelithiasis location: gallbladder Cholecystitis presence: with cholecystitis Cholecystitis acuity: unspecified acuity Biliary obstruction: with biliary obstruction Qualified Code(s): K80.01 - Calculus of gallbladder with acute cholecystitis with obstruction (3) Alzheimer disease Code(s): G30.9 - ALZHEIMER'S DISEASE, UNSPECIFIED Qualifiers: Alzheimer's disease onset: early-onset Dementia behavioral disturbance : with behavioral disturbance Qualified Code(s): G30.0 - Alzheimer's disease with early onset; F02.81 - Dementia in other diseases classified elsewhere with behavioral disturbance
[2016-11-16] MEDS: LACTATED RINGERS SOLUTION 1,000 ML IV SCH (15:43)
[2016-11-16] MEDS: QUEtiapine FUMARATE 50 MG TABLET PO SCH ×2 (15:43→22:27)
--- NOTE | 2016-11-16 17:02 | PN ---
Teaching Attending Note Name of Resident: Chas Posadas ATTENDING PHYSICIAN STATEMENT I saw and evaluated the patient. I reviewed the resident's note and discussed the case with the resident. I agree with the resident's findings and plan as documented. SUBJECTIVE:resting comfortable. nonverbal OBJECTIVE: Last Vital Signs Temp Pulse Resp BP Pulse Ox 98.3 F 80 20 123/73 99 11/16/16 14:53 11/16/16 14:53 11/16/16 14:53 11/16/16 14:53 11/16/16 08:52 General resting comfortable. opens her eyes to verbal stimuli, CV S1 S2 RRR no murmur/rub/gallop Lungs CTA B/L anteriorly Abdomen + guarding, RUQ tenderness soft ASSESSMENT AND PLAN: 71yo F wtih PMH Alzheimer presented with RLQ and flank pain 1. Acute cholecystitis- with assoc acute transaminitis. HIDA +for acute cholecystitis. will check MRCP to evaluate for cholodocholithasis vs recently passed stone. on Zosyn day 1. IVF. cont NPO for now. pain control. will likley require cholecystectomy. ID, GI and surgery on board 2. UTI- on zosyn, f/u UCx 3. Alzheimer- nonverbal. as per present at bedside. at baseline. 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 is unable to communicate if in pain but sometimes will hold herself where she is pain. does not perform her own ADLs. cont seroquel, aricept, remeron 4. DVT ppx- hep sq
[2016-11-16] MEDS ORDERED: PIPERACILLIN/TAZOB 3.375 GM 3.375 GM in DEXTROSE 5%-WATER - 50 ML IVPB SCH (18:00)
[2016-11-16] MEDS ORDERED: PIPERACILLIN/TAZOB 3.375 GM/50 ML PRE-DOCKED IVPB SCH (18:00)
--- NOTE | 2016-11-16 20:38 | CON.GI ---
Consult Consult Specialty:: GI Reason for Consultation:: abdominal pain - History of Present Illness Chief Complaint: abdominal pain History of Present Illness: 71 F with h/o Alzheimer's, GERD, acute cholecystitis (Jan 2016) managed conservatively, admitted with RLQ pain for the past 3 days. She has had vomiting , at times blood-tinged as per . On admission WBC 14, bili, AST, ALT, Alk phos all bumped on the 14th and all started to normalize on the 15th Lipase also jamey and is now normal. HIDA positive for obstructed ccystic duct but CBD patent. 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: Dementia (uncooperative and unable to communicate intelligibly.) Hepatobiliary: Yes: Cholecystitis - Alcohol/Substance Use Hx Alcohol Use: No - Smoking History Smoking history: Never smoked Have you smoked in the past 12 months: No Home Medications - Allergies Allergies/Adverse Reactions: Allergies Allergy/AdvReac Type Severity Reaction Status Date / Time No Known Allergies Allergy Verified 11/15/16 09:45 - Home Medications Home Medications: Ambulatory Orders Docusate Sodium [Colace -] 100 mg PO BID 01/22/16 Donepezil HCl [Aricept] 10 mg PO DAILY 01/22/16 Quetiapine Fumarate [Seroquel -] 50 mg PO BID 01/22/16 Mirtazapine 15 mg PO HS 11/15/16 Ranitidine [Zantac -] 150 mg PO DAILY 11/15/16 Physical Exam-GI Vital Signs: Vital Signs Temperature 98.2 F 11/16/16 18:00 Pulse Rate 81 11/16/16 18:00 Respiratory Rate 20 11/16/16 18:00 Blood Pressure 113/59 11/16/16 18:00 O2 Sat by Pulse Oximetry (%) 99 11/16/16 08:52 Constitutional: Yes: Mild Distress HENT: Yes: Normocephalic Neck: Yes: Supple Cardiovascular: Yes: Regular Rate and Rhythm Respiratory: Yes: CTA Bilaterally Gastrointestinal Inspection: Yes: WNL ...Palpate: Yes: Soft Labs: CBC, BMP 11/16/16 07:55 11/16/16 07:55 INR, PTT INR 1.18 (0.82-1.09) H 11/15/16 10:18 Imaging - Results Cat Scan: Report Reviewed Ultrasound: Report Reviewed Other: Report Reviewed (hida) Assessment/Plan Patient with gallstone cholecystitis In MRI at this time. Management based on results. Choledocholithiasis unlikely based on HIDA Cont IV Ab, IVF, NPO Will follow
[2016-11-16] MEDS: URSODIOL 300 MG CAPSULE PO SCH (22:26)
[2016-11-16] MEDS: MIRTAZAPINE 15 MG TABLET (FP) PO SCH (22:27)
[2016-11-17] MEDS ORDERED: PIPERACILLIN/TAZOBACTAM 3.375 GM VIAL IVPB ONE ×3 (01:53→17:52)
[2016-11-17] MEDS ORDERED: DEXTROSE 5%-WATER - 50 ML IVPB ONE ×3 (01:53→17:53)
[2016-11-17] MEDS: SODIUM CHLORIDE 1,000 ML IV SCH ×2 (02:05→17:03)
[2016-11-17] MEDS: PIPERACILLIN/TAZOB 3.375 GM 3.375 GM in DEXTROSE 5%-WATER - 50 ML IVPB SCH ×3 (02:05→18:19)
[2016-11-17 08:00] LABS: BASOPHIL 0.3 % (0-2.0); EOSINOPHIL 1.9 % (0-4.5); MCH 30.4 pg (25.7-33.7); MCHC 34.2 g/dl (32.0-36.0); MEAN PLT VOLUME 8.5 fl (7.5-11.1); NEUTROPHILS 79.6 % (42.8-82.8); PLATELET COUNT 205 K/MM3 (134-434); RDW 12.7 % (11.6-15.6); WHITE BLOOD COUNT 7.3 K/mm3 (4.0-10.0)
[2016-11-17 08:03] LABS: ALBUMIN 3.2 g/dl (3.4-5.0); ALK PHOS 158 U/L (45-117); ANION GAP 8 (8-16); BILIRUBIN,TOTAL 1.2 mg/dL (0.2-1.0); CALCIUM 8.8 mg/dL (8.5-10.1); CO2 30 mmol/L (21-32); CREATININE 0.8 mg/dL (0.55-1.02); GLUCOSE,RANDOM 108 mg/dL (74-106); SGOT/AST 73 U/L (15-37); SGPT/ALT 128 U/L (12-78); TOT PROT 6.3 g/dl (6.4-8.2)
[2016-11-17] MEDS ORDERED: POTASSIUM CHLORIDE TABS 20 MEQ TABLET.ER (FP) PO ONE (09:00)
[2016-11-17] MEDS ORDERED: QUEtiapine FUMARATE 25 MG TABLET (FP) ONE ×2 (09:24→20:37)
[2016-11-17] MEDS: morphine CARPU-JECT 2 MG/1 ML DISP.SYRIN IVPUSH PRN ×2 (09:46→19:00)
[2016-11-17] MEDS: HEPARIN NA (PORCINE) 5,000 UNITS/ML 1ML VIAL SQ SCH ×2 (09:53→22:06)
[2016-11-17] MEDS: QUEtiapine FUMARATE 50 MG TABLET PO SCH ×2 (09:53→22:04)
[2016-11-17] MEDS: URSODIOL 300 MG CAPSULE PO SCH ×2 (09:53→22:06)
[2016-11-17] MEDS: DONEPEZIL HCL 10 MG TABLET (FP) PO SCH (09:53)
--- NOTE | 2016-11-17 10:50 | PN ---
Progress Note (short form) - Note Progress Note: Attending Surgeon Seen in f/u; ?? pain ?? a/t her and PATIENT MONITOR. Remains NPO; had HIDA and MRCP VSS AF abdomen-soft; ? RUQ ? tenderness to palpation but also ?? diffusely ??. WBC-wnl LFT's -essentially w/o change GI note reviewed IMP: acute cholecystitis and elevated LFT's and bilirubin PLAN: Check results of MRCP; continue present tx; decision re lap terrell pending ; d/w . Cr Setin MD FACS
[2016-11-17] MEDS: FAMOTIDINE 20 MG/50 ML IVPB 50 ML IVPB SCH ×2 (11:00→22:06)
[2016-11-17] MEDS ORDERED: POTASSIUM CHLORIDE 20 MEQ PREMIX IVPB 100 ML IVPB ONE (11:31)
[2016-11-17] MEDS ORDERED: KCL 10 MEQ IVPB 100 ML IVPB SCH (12:15)
[2016-11-17] MEDS ORDERED: HALOPERIDOL 1 MG TABLET (FP) PO PRN (15:12)
--- NOTE | 2016-11-17 15:52 | PN ---
Teaching Attending Note Name of Resident: Chas Posadas ATTENDING PHYSICIAN STATEMENT I saw and evaluated the patient. I reviewed the resident's note and discussed the case with the resident. I agree with the resident's findings and plan as documented. SUBJECTIVE:agitated. OBJECTIVE: Last Vital Signs Temp Pulse Resp BP Pulse Ox 98 F 70 20 150/90 99 11/17/16 06:00 11/17/16 06:00 11/17/16 06:00 11/17/16 06:00 11/16/16 21:00 General agitated. pulling away during exam CV S1 S2 RRR no murmur/rub/gallop Lungs CTA B/L anteriorly Abdomen will not allow abdominal exam. pushes hand away ASSESSMENT AND PLAN: 71yo F wtih PMH Alzheimer presented with RLQ and flank pain 1. Acute cholecystitis-HIDA + for acute cholecystitis. MRCP negative for choledocholithasis. NPO for likely surgery in the AM. on Zosyn day 2. IVF. ID, GI and surgery on board 2. Agitation- home medications were held due to being NPO. will allow meds with sip of ensure. received ativan last night for agitation. QTc wnl. will give haldol prn agitiation 3. UTI- on zosyn day 2, f/u UCx 4. Alzheimer- nonverbal. cont seroquel, aricept, remeron 5. DVT ppx- hep sq
[2016-11-17] MEDS: LACTATED RINGERS SOLUTION 1,000 ML IV SCH (16:31)
[2016-11-17] MEDS: KCL 10 MEQ IVPB 100 ML IVPB SCH ×2 (17:02→19:10)
--- NOTE | 2016-11-17 17:26 | PN ---
Physical Exam: SUBJECTIVE: Patient seen and examined Patient agitated overnight. Received 0.5 mg of ativan and was calm throughout. She was in pain this morning. OBJECTIVE: Vital Signs Period Temp Pulse Resp BP Sys/Dubon Pulse Ox Last 24 Hr 97.8 F-98.2 F 70-81 20-20 90-150/58-90 99 GENERAL: No acute distress. Patient confused and agitated. HEAD: Normal with no signs of trauma. EYES: Pupils equal, round and reactive to light, extraocular movements intact, sclera anicteric, conjunctiva clear. No lid lag. EARS, NOSE, THROAT: Ears normal, nares patent, oropharynx clear without exudates. Moist mucous membranes. NECK: Normal range of motion, supple without lymphadenopathy, JVD, or masses. LUNGS: Breath sounds equal, clear to auscultation bilaterally. No wheezes, and no crackles. No accessory muscle use. HEART: Regular rate and rhythm, normal S1 and S2 without murmur, rub or gallop. ABDOMEN: Soft, RUQ AND RLQ TENDERNESS, RIGHT SUPRAPUBIC TENDERNESS, not distended, normoactive bowel sounds, no guarding, no rebound, no masses. No hepatomegaly or splenomegaly. MUSCULOSKELETAL: Normal range of motion at all joints. No bony deformities or tenderness. UPPER EXTREMITIES: 2+ pulses, warm, well-perfused. No cyanosis. No clubbing. No peripheral edema. LOWER EXTREMITIES: 2+ pulses, warm, well-perfused. No calf tenderness. No peripheral edema. NEUROLOGICAL: Cranial nerves II-XII intact. Normal speech. Normal gait. PSYCHIATRIC: Cooperative. Good eye contact. Appropriate mood and affect. SKIN: Warm, dry, normal turgor, no rashes or lesions noted, normal capillary refill. Laboratory Results - last 24 hr 11/17/16 11/17/16 06:00 06:00 WBC 7.3 RBC 4.17 Hgb 12.7 Hct 37.1 MCV 89.0 MCH 30.4 MCHC 34.2 RDW 12.7 Plt Count 205 MPV 8.5 Neutrophils % 79.6 Lymphocytes % 11.9 D Monocytes % 6.3 Eosinophils % 1.9 Basophils % 0.3 Sodium 141 Potassium 3.1 L Chloride 103 Carbon Dioxide 30 Anion Gap 8 BUN 8 Creatinine 0.8 Creat Clearance w eGFR > 60 Random Glucose 108 H Calcium 8.8 Total Bilirubin 1.2 H AST 73 H D ALT 128 H Alkaline Phosphatase 158 H Total Protein 6.3 L Albumin 3.2 L Active Medications Generic Name Dose Route Start Last Admin Trade Name Freq PRN Reason Stop Dose Admin Donepezil HCl 10 mg 11/16/16 10:00 11/17/16 09:53 Aricept - PO 10 mg DAILY VALE Administration Haloperidol 0.5 mg 11/17/16 15:12 Haldol - PO TID PRN AGITATION Heparin Sodium (Porcine) 5,000 unit 11/15/16 22:00 11/17/16 09:53 Heparin - SQ 5,000 unit BID VALE Administration Lactated Ringer's 1,000 mls @ 100 mls/hr 11/15/16 14:15 11/17/16 16:31 Lactated Ringers Solution IV Not Given ASDIR VALE Sodium Chloride 1,000 mls @ 100 mls/hr 11/15/16 16:38 11/17/16 17:03 Normal Saline - IV 100 mls/hr ASDIR VALE Administration Famotidine/Sodium Chloride 50 mls @ 100 mls/hr 11/15/16 22:00 11/17/16 11:00 Pepcid 20 Mg Premixed Ivpb - IVPB 100 mls/hr BID VALE Administration Piperacillin Sod/Tazobactam 50 mls @ 100 mls/hr 11/16/16 18:00 11/17/16 09:50 Sod 3.375 gm/ Dextrose IVPB 100 mls/hr Q8H-IV VALE Administration Potassium Chloride 100 mls @ 100 mls/hr 11/17/16 16:45 11/17/16 17:02 Potassium Chloride 10 Meq Premix Ivpb - IVPB 11/17/16 18:44 100 mls/hr Q1H VALE Administration Mirtazapine 15 mg 11/15/16 22:00 11/16/16 22:27 Remeron - PO Not Given HS VALE Morphine Sulfate 1 mg 11/15/16 16:40 11/17/16 09:46 Morphine Injection - IVPUSH 1 mg Q4H PRN Administration PAIN Ondansetron HCl 4 mg 11/15/16 15:48 Zofran Injection IVPB Q6H PRN NAUSEA Quetiapine Fumarate 50 mg 11/15/16 22:00 11/17/16 09:53 Seroquel - PO 50 mg BID VALE Administration Ursodiol 300 mg 11/16/16 22:00 11/17/16 09:53 Actigal - PO 300 mg BID VALE Administration ASSESSMENT/PLAN: 71 year old F with pmh of Alzheimer's, GERD, acute cholecystitis (Jan 2016) presented with RLQ, suprapubic pain, and right flank pain admitted for distended gallbladder and UTI #Acute cholecystitis -HIDA scan concerning for possible acute cholecystitis -IVF @75 cc/hr -GI consulted, Dr. Feliciano -Morphine 1 mg q4h prn -Surgery consulted, Dr. Stein -MRCP reveals no choledocholithiasis. Patient will be npo after midnight -Continue IV zosyn 3.375 gm q8h #UTI -Received dose of zosyn in the ED -Continue IV zosyn 3.375 gm q8h -ID consulted, Dr. Franklin #Alzheimers -Continue aricept 10 mg po daily #Agitation -Continue seroquel 50 mg po bid #insomnia -Continue mirtazapine 15 mg po hs #GERD -Continue Zantac 150 mg po daily #FEN/GI -IVF NS @ 75 cc/hr -electrolytes wnl -NPO #Ppx -DVT- Heparin 5000 units sq BID -GI- Zantac 150 mg po daily Visit type - Emergency Visit Emergency Visit: Yes ED Registration Date: 11/15/16 Care time: The patient presented to the Emergency Department on the above date and was hospitalized for further evaluation of their emergent condition. - New Patient This patient is new to me today: No - Critical Care Critical Care patient: No
--- NOTE | 2016-11-17 19:03 | PN ---
Progress Note (short form) - Note Progress Note: Patient seen MRCP discussed with Dr Argueta Negative for stone in CBD For possible surgery Keep NPO
[2016-11-17] MEDS: MIRTAZAPINE 15 MG TABLET (FP) PO SCH (22:04)
[2016-11-18] MEDS ORDERED: PIPERACILLIN/TAZOBACTAM 3.375 GM VIAL IVPB ONE ×4 (00:52→23:53)
[2016-11-18] MEDS ORDERED: DEXTROSE 5%-WATER - 50 ML IVPB ONE ×4 (00:52→23:54)
[2016-11-18] MEDS: PIPERACILLIN/TAZOB 3.375 GM 3.375 GM in DEXTROSE 5%-WATER - 50 ML IVPB SCH ×3 (01:07→18:44)
[2016-11-18] MEDS: SODIUM CHLORIDE 1,000 ML IV SCH ×2 (01:09→18:45)
[2016-11-18] MEDS: morphine CARPU-JECT 2 MG/1 ML DISP.SYRIN IVPUSH PRN ×3 (04:53→21:21)
--- NOTE | 2016-11-18 08:16 | PN ---
Teaching Attending Note Name of Resident: Chas Posadas ATTENDING PHYSICIAN STATEMENT I saw and evaluated the patient. I reviewed the resident's note and discussed the case with the resident. I agree with the resident's findings and plan as documented. SUBJECTIVE: No specific complaints OBJECTIVE: Vitals noted ASSESSMENT AND PLAN: MRCP noted Appreciate leasing sales consultant input To OR today See resident note for full details
--- NOTE | 2016-11-18 09:04 | PN ---
Progress Note (short form) - Note Progress Note: Attending Surgeon Pre-Op Patient seen in f/u; case d/w her ; HIDA and ? PE ? are c/w acute cholecystitis; MRCP was negative for CBD stones; WBC is wnl and LFT's are trending down; patients has given informed consent for lap terrell possible open; r/b/t/a's d/w him including but not limited to conversion to open procedure; other procedures for possible bile leak; retained CBD stones etc.; he understands this as explained in Romansh and Romansh. To OR today Cr Stein MD FACS
[2016-11-18] MEDS ORDERED: QUEtiapine FUMARATE 25 MG TABLET (FP) ONE (11:02)
[2016-11-18] MEDS: QUEtiapine FUMARATE 50 MG TABLET PO SCH (11:09)
[2016-11-18] MEDS: DONEPEZIL HCL 10 MG TABLET (FP) PO SCH (11:09)
[2016-11-18] MEDS: HEPARIN NA (PORCINE) 5,000 UNITS/ML 1ML VIAL SQ SCH ×2 (11:18→21:24)
[2016-11-18] MEDS: URSODIOL 300 MG CAPSULE PO SCH ×2 (11:18→21:23)
[2016-11-18 11:38] LABS: ALK PHOS 177 U/L (45-117); ANION GAP 10 (8-16); BILIRUBIN,TOTAL 1.1 mg/dL (0.2-1.0); CALCIUM 8.7 mg/dL (8.5-10.1); CO2 27 mmol/L (21-32); CREATININE 0.6 mg/dL (0.55-1.02); GLUCOSE,RANDOM 96 mg/dL (74-106); SGOT/AST 34 U/L (15-37); SGPT/ALT 83 U/L (12-78); TOT PROT 6.1 g/dl (6.4-8.2)
[2016-11-18] MEDS: FAMOTIDINE 20 MG/50 ML IVPB 50 ML IVPB SCH ×2 (12:22→21:24)
[2016-11-18] MEDS ORDERED: MIDAZOLAM HCL 2 MG/2 ML SINGLE DOSE VIAL ONE ×2 (13:14)
[2016-11-18] MEDS ORDERED: PROPOFOL 20 ML ONE (13:15)
[2016-11-18] MEDS ORDERED: ROCURONIUM BROMIDE 50 MG/5 ML VIAL ONE ×2 (13:15→15:32)
--- NOTE | 2016-11-18 13:34 | PN ---
Physical Exam: SUBJECTIVE: Patient seen and examined No acute events overnight. No new complaints this morning. OBJECTIVE: Vital Signs Period Temp Pulse Resp BP Sys/Dubon Pulse Ox Last 24 Hr 97.1 F-98.8 F 77-103 20-20 105-146/62-71 97 GENERAL: No acute distress. Patient confused and agitated. HEAD: Normal with no signs of trauma. EYES: Pupils equal, round and reactive to light, extraocular movements intact, sclera anicteric, conjunctiva clear. No lid lag. EARS, NOSE, THROAT: Ears normal, nares patent, oropharynx clear without exudates. Moist mucous membranes. NECK: Normal range of motion, supple without lymphadenopathy, JVD, or masses. LUNGS: Breath sounds equal, clear to auscultation bilaterally. No wheezes, and no crackles. No accessory muscle use. HEART: Regular rate and rhythm, normal S1 and S2 without murmur, rub or gallop. ABDOMEN: Soft, RUQ AND RLQ TENDERNESS, RIGHT SUPRAPUBIC TENDERNESS, not distended, normoactive bowel sounds, no guarding, no rebound, no masses. No hepatomegaly or splenomegaly. MUSCULOSKELETAL: Normal range of motion at all joints. No bony deformities or tenderness. UPPER EXTREMITIES: 2+ pulses, warm, well-perfused. No cyanosis. No clubbing. No peripheral edema. LOWER EXTREMITIES: 2+ pulses, warm, well-perfused. No calf tenderness. No peripheral edema. NEUROLOGICAL: Cranial nerves II-XII intact. Normal speech. Normal gait. PSYCHIATRIC: Cooperative. Good eye contact. Appropriate mood and affect. SKIN: Warm, dry, normal turgor, no rashes or lesions noted, normal capillary refill. Laboratory Results - last 24 hr 11/18/16 10:50 Sodium 141 Potassium 2.9 L* Chloride 104 Carbon Dioxide 27 Anion Gap 10 BUN 6 L D Creatinine 0.6 D Creat Clearance w eGFR > 60 Random Glucose 96 Calcium 8.7 Total Bilirubin 1.1 H AST 34 D ALT 83 H D Alkaline Phosphatase 177 H Total Protein 6.1 L Albumin 3.0 L Active Medications Generic Name Dose Route Start Last Admin Trade Name Freq PRN Reason Stop Dose Admin Donepezil HCl 10 mg 11/16/16 10:00 11/18/16 11:09 Aricept - PO 10 mg DAILY VALE Administration Haloperidol 0.5 mg 11/17/16 15:12 Haldol - PO TID PRN AGITATION Heparin Sodium (Porcine) 5,000 unit 11/15/16 22:00 11/18/16 11:18 Heparin - SQ Not Given BID VALE Lactated Ringer's 1,000 mls @ 100 mls/hr 11/15/16 14:15 11/17/16 16:31 Lactated Ringers Solution IV Not Given ASDIR VALE Sodium Chloride 1,000 mls @ 100 mls/hr 11/15/16 16:38 11/18/16 01:09 Normal Saline - IV 100 mls/hr ASDIR VALE Administration Famotidine/Sodium Chloride 50 mls @ 100 mls/hr 11/15/16 22:00 11/18/16 12:22 Pepcid 20 Mg Premixed Ivpb - IVPB 100 mls/hr BID VALE Administration Piperacillin Sod/Tazobactam 50 mls @ 100 mls/hr 11/16/16 18:00 11/18/16 11:08 Sod 3.375 gm/ Dextrose IVPB 100 mls/hr Q8H-IV VALE Administration Potassium Chloride 100 mls @ 100 mls/hr 11/18/16 12:45 Potassium Chloride 10 Meq Premix Ivpb - IVPB 11/18/16 15:44 Q60M VALE Mirtazapine 15 mg 11/15/16 22:00 11/17/16 22:04 Remeron - PO 15 mg HS VALE Administration Morphine Sulfate 1 mg 11/15/16 16:40 11/18/16 11:32 Morphine Injection - IVPUSH 1 mg Q4H PRN Administration PAIN Ondansetron HCl 4 mg 11/15/16 15:48 Zofran Injection IVPB Q6H PRN NAUSEA Quetiapine Fumarate 50 mg 11/15/16 22:00 11/18/16 11:09 Seroquel - PO 50 mg BID VALE Administration Ursodiol 300 mg 11/16/16 22:00 11/18/16 11:18 Actigal - PO 300 mg BID VALE Administration ASSESSMENT/PLAN: 71 year old F with pmh of Alzheimer's, GERD, acute cholecystitis (Jan 2016) presented with RLQ, suprapubic pain, and right flank pain admitted for distended gallbladder and UTI #Acute cholecystitis -HIDA scan concerning for possible acute cholecystitis -IVF @75 cc/hr -GI consulted, Dr. Feliciano -Morphine 1 mg q4h prn -Surgery consulted, Dr. Stein -MRCP reveals no choledocholithiasis. Patient will be npo after midnight -Patient for surgery today -Continue IV zosyn 3.375 gm q8h #Hypokalemia -3 bags of IV 10 meq KCL riders #UTI -Received dose of zosyn in the ED -Continue IV zosyn 3.375 gm q8h -ID consulted, Dr. Franklin #Alzheimers -Continue aricept 10 mg po daily #Agitation -Continue seroquel 50 mg po bid #insomnia -Continue mirtazapine 15 mg po hs #GERD -Continue Zantac 150 mg po daily #FEN/GI -IVF NS @ 75 cc/hr -K+ 2.9 -NPO #Ppx -DVT- Heparin 5000 units sq BID -GI- Zantac 150 mg po daily Visit type - Emergency Visit Emergency Visit: Yes ED Registration Date: 11/15/16 Care time: The patient presented to the Emergency Department on the above date and was hospitalized for further evaluation of their emergent condition. - New Patient This patient is new to me today: No - Critical Care Critical Care patient: No
[2016-11-18] MEDS ORDERED: DEXAMETHASONE SOD PHOSPHATE 4 MG/1 ML VIAL ONE (14:40)
[2016-11-18] MEDS ORDERED: PHENYLEPHRINE HCL 10 MG/1 ML SINGLE DOSE VIAL ONE (15:07)
[2016-11-18] MEDS ORDERED: NEOSTIGMINE METHYLSULFATE 0.5 MG/ML - 10 ML MDV ONE (16:11)
[2016-11-18] MEDS ORDERED: GLYCOPYRROLATE 0.2 MG/1 ML VIAL ONE (16:12)
--- NOTE | 2016-11-18 16:29 | OP ---
Operative Note - Note: Operative Date: 11/18/16 Pre-Operative Diagnosis: Acute cholecystitis/cholelithiasis Operation: Laparascopic cholecystectomy Post-Operative Diagnosis: Other (Acute cholecystitis/cholelithiasis/gangrenous) Surgeon: Cr Stein Coppersmith Apprentice: Vaughn Hauser Anesthesiologist/DIRECTOR NURSES' REGISTRY: Claudia Winston Anesthesia: General Specimens Removed: gangrenous gall bladder Estimated Blood Loss (mls): 100 Drains & Tubes with Location: Fluid Volume Replaced (mls): 1,200
--- NOTE | 2016-11-18 16:30 | SURG ---
Surgery Lithographic General Worker Note Lithographic General Worker: Vaughn Hauser PA-C Date of Service: 11/18/16 Diagnosis: Acute cholecystitis/cholelithiasis/Gangrenous Procedure: Laparascopic cholecystectomy I was present for the entirety of the operative procedure. For further detail, please refer to operative report. Visit type - Case Type Case Type: ED Admission - New patient This patient is new to me today: Yes Date on this admission: 11/18/16
[2016-11-18] MEDS ORDERED: ACETAMINOPHEN 1000 MG/100 ML VIAL (NON FORMULARY) IVPB ONE (16:32)
[2016-11-18] MEDS ORDERED: LACTATED RINGERS SOLUTION 1,000 ML IV SCH ×2 (16:43→16:45)
[2016-11-18] MEDS ORDERED: ONDANSETRON 4 MG/2 ML VIAL IVPUSH PRN (16:43)
[2016-11-18] MEDS ORDERED: SODIUM CHLORIDE 1,000 ML IV SCH (16:43)
[2016-11-18] MEDS ORDERED: ONDANSETRON 4 MG/2 ML VIAL IVPB PRN (16:43)
[2016-11-18] MEDS ORDERED: HALOPERIDOL 0.5 MG TABLET PO PRN (16:43)
[2016-11-18] MEDS ORDERED: ACETAMINOPHEN INJECTION 100 ML IVPB ONE (16:52)
[2016-11-18] MEDS: KCL 10 MEQ IVPB 100 ML IVPB SCH (17:00)
[2016-11-18] MEDS: LACTATED RINGERS SOLUTION 1,000 ML IV SCH (18:45)
[2016-11-18] MEDS ORDERED: LACTATED RINGERS SOLUTION 1,000 ML with POTASSIUM CHLORIDE 40 MEQ IVPB SCH (19:43)
[2016-11-18] MEDS: DOCUSATE SODIUM 100 MG CAPSULE (FP) PO SCH (21:23)
[2016-11-18] MEDS ORDERED: DOCUSATE SODIUM 100 MG CAPSULE (FP) PO SCH (22:00)
[2016-11-18] MEDS: MIRTAZAPINE 15 MG TABLET (FP) PO SCH (22:48)
[2016-11-18] MEDS: QUEtiapine FUMARATE 25 MG TABLET (FP) PO SCH (22:48)
[2016-11-18] MEDS ORDERED: PT OWN MED DRAWER 7, Y5N ONE (23:00)
[2016-11-18] MEDS ORDERED: SODIUM CHLORIDE 1,000 ML with POTASSIUM CHLORIDE 40 MEQ IVPB SCH (23:11)
[2016-11-18] MEDS: SODIUM CHLORIDE 1,000 ML with POTASSIUM CHLORIDE 40 MEQ IV SCH (23:51)
[2016-11-19] MEDS: PIPERACILLIN/TAZOB 3.375 GM 3.375 GM in DEXTROSE 5%-WATER - 50 ML IVPB SCH ×3 (01:09→17:08)
[2016-11-19] MEDS ORDERED: PT OWN MED DRAWER 7, Y5N ONE ×3 (01:19→21:35)
[2016-11-19] MEDS: morphine CARPU-JECT 2 MG/1 ML DISP.SYRIN IVPUSH PRN ×2 (02:32→10:58)
[2016-11-19] MEDS ORDERED: HALOPERIDOL LACTATE 5 MG/ML IM ONE (03:45)
--- NOTE | 2016-11-19 03:51 | HOSP ---
Subjective - Review of Symptoms Events since last encounter: Called for hypertension and agitation. Pt was found to be agitated and pulling out IVs. BP 190s syss 5mg IV haldol ordered. Suzy mittens ordered. Will continue to monitor. Physical Examination Vital Signs: Vital Signs Temperature 99 F 11/18/16 22:00 Pulse Rate 112 H 11/18/16 22:00 Respiratory Rate 20 11/18/16 22:00 Blood Pressure 132/82 11/18/16 22:00 O2 Sat by Pulse Oximetry (%) 98 11/18/16 19:57 Labs: CBC, BMP 11/17/16 06:00 11/18/16 10:50 Visit type - Emergency Visit Emergency Visit: No - New Patient This patient is new to me today: No - Critical Care Critical Care patient: No
[2016-11-19 07:13] LABS: MCHC 35.1 g/dl (32.0-36.0); MEAN CELL VOLUME 88.3 fl (80-96); MEAN PLT VOLUME 8.1 fl (7.5-11.1); PLATELET COUNT 254 K/MM3 (134-434); RDW 12.6 % (11.6-15.6); WHITE BLOOD COUNT 10.5 K/mm3 (4.0-10.0)
[2016-11-19 07:37] LABS: ALBUMIN 2.8 g/dl (3.4-5.0); ANION GAP 10 (8-16); BILIRUBIN,TOTAL 0.9 mg/dL (0.2-1.0); CALCIUM 8.5 mg/dL (8.5-10.1); CO2 27 mmol/L (21-32); CREATININE 0.5 mg/dL (0.55-1.02); GLUCOSE,RANDOM 130 mg/dL (74-106); SGOT/AST 48 U/L (15-37); SGPT/ALT 81 U/L (12-78); TOT PROT 5.8 g/dl (6.4-8.2)
[2016-11-19 07:38] LABS: ALK PHOS 163 U/L (45-117)
--- NOTE | 2016-11-19 08:15 | PN ---
Physical Exam: SUBJECTIVE: Patient seen and examined Family at bedside They understand plan of care OBJECTIVE: Vital Signs Period Temp Pulse Resp BP Sys/Dubon Pulse Ox Last 24 Hr 97 F-102 F 63-112 15-20 92-132/56-82 95-100 GEN: Awake, alert, NAD PULM: CTAB CVS: RRR ABD: Soft, minimal tendernss on deep palpation, NABS EXTREM: Warm, well perfused Laboratory Results - last 24 hr 11/18/16 11/19/16 11/19/16 10:50 06:00 06:00 WBC 10.5 H D RBC 3.84 Hgb 11.9 Hct 33.9 MCV 88.3 MCH 31.0 MCHC 35.1 RDW 12.6 Plt Count 254 D MPV 8.1 Neutrophils % Y Lymphocytes % Y Sodium 141 144 Potassium 2.9 L* 3.3 L Chloride 104 107 Carbon Dioxide 27 27 Anion Gap 10 10 BUN 6 L D 5 L Creatinine 0.6 D 0.5 L Creat Clearance w eGFR > 60 > 60 Random Glucose 96 130 H D Calcium 8.7 8.5 Total Bilirubin 1.1 H 0.9 AST 34 D 48 H D ALT 83 H D 81 H Alkaline Phosphatase 177 H 163 H Total Protein 6.1 L 5.8 L Albumin 3.0 L 2.8 L Active Medications Generic Name Dose Route Start Last Admin Trade Name Freq PRN Reason Stop Dose Admin Docusate Sodium 100 mg 11/18/16 22:00 11/18/16 21:23 Colace - PO Not Given BID VALE Donepezil HCl 10 mg 11/19/16 10:00 Aricept - PO DAILY VALE Haloperidol 0.5 mg 11/18/16 16:43 Haldol - PO TID PRN AGITATION Heparin Sodium (Porcine) 5,000 unit 11/18/16 22:00 11/18/16 21:24 Heparin - SQ 5,000 unit BID VALE Administration Famotidine/Sodium Chloride 50 mls @ 100 mls/hr 11/18/16 22:00 11/18/16 21:24 Pepcid 20 Mg Premixed Ivpb - IVPB 100 mls/hr BID VALE Administration Piperacillin Sod/Tazobactam 50 mls @ 100 mls/hr 11/18/16 18:00 11/19/16 01:09 Sod 3.375 gm/ Dextrose IVPB 100 mls/hr Q8H-IV VALE Administration Potassium Chloride 40 meq/ 1,020 mls @ 100 mls/hr 11/18/16 23:16 11/18/16 23:51 Sodium Chloride IV 100 mls/hr Q10H VALE Administration Mirtazapine 15 mg 11/18/16 22:00 11/18/16 22:48 Remeron - PO Not Given HS VALE Morphine Sulfate 1 mg 11/18/16 16:43 11/19/16 02:32 Morphine Injection - IVPUSH 1 mg Q4H PRN Administration PAIN Ondansetron HCl 4 mg 11/18/16 16:43 Zofran Injection IVPB Q6H PRN NAUSEA Quetiapine Fumarate 50 mg 11/18/16 22:00 11/18/16 22:48 Seroquel - PO Not Given BID VALE Ursodiol 300 mg 11/18/16 22:00 11/18/16 21:23 Actigal - PO Not Given BID VALE ASSESSMENT/PLAN: The patient is a 71 year old female with a significant past medical history of Alzheimer's dementia and GERD who is now HD#4 and POD#1 s/p cholecystectomy for acute cholecystitis. #GI Acute cholecystitis Doing well post-op POD#1 s/p CCY Continue Zosyn Continue Ursodiol Surgery following #FEN Hypokalemia contiues, though improved Continue to replete She is getting NS 100ml/hr with 40 mEq KCl Surgery to see and advance diet #NEURO Alzheimers dementia MS at baseline Continue Aricept, Seroquel, Remeron Haldol prn #GI GERD Continue IV Pepcid #PROPHYLAXIS Hep SQ Pepcid IV Visit type - Emergency Visit Emergency Visit: Yes ED Registration Date: 11/15/16 Care time: The patient presented to the Emergency Department on the above date and was hospitalized for further evaluation of their emergent condition. - New Patient This patient is new to me today: No - Critical Care Critical Care patient: No
[2016-11-19] MEDS: SODIUM CHLORIDE 1,000 ML with POTASSIUM CHLORIDE 40 MEQ IV SCH ×2 (09:24→21:41)
[2016-11-19] MEDS: DONEPEZIL HCL 10 MG TABLET (FP) PO SCH (09:31)
[2016-11-19] MEDS: FAMOTIDINE 20 MG/50 ML IVPB 50 ML IVPB SCH ×2 (09:31→21:42)
[2016-11-19] MEDS: HEPARIN NA (PORCINE) 5,000 UNITS/ML 1ML VIAL SQ SCH ×2 (09:31→21:46)
[2016-11-19] MEDS: QUEtiapine FUMARATE 25 MG TABLET (FP) PO SCH ×2 (09:31→21:42)
[2016-11-19] MEDS: URSODIOL 300 MG CAPSULE PO SCH (09:32)
[2016-11-19] MEDS: DOCUSATE SODIUM 100 MG CAPSULE (FP) PO SCH ×2 (09:33→21:41)
--- NOTE | 2016-11-19 09:39 | PN ---
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 WBC 10.5 IMP: improved PLAN: OOB; clear liquid diet; continue TANNER drain; monitor temp. Cr Stein MD FACS
--- NOTE | 2016-11-19 10:25 | OP ---
DATE OF OPERATION: 11/18/2016 PREOPERATIVE DIAGNOSIS: Acute cholecystitis, possible gangrenous cholecystitis. POSTOPERATIVE DIAGNOSIS: Acute cholecystitis, possible gangrenous cholecystitis. PROCEDURE: Laparoscopic cholecystectomy. SURGEON: Cr Stein MD SAMPLES AND REPAIRS PREPARER: Vaughn Hauser PA-C ANESTHESIA: General. OPERATIVE FINDINGS: There was a massively distended gallbladder, which was partially gangrenous and acute. There was cholelithiasis. The gallbladder was lying transversely under the liver because of the distension. The rest of the findings were unremarkable. DESCRIPTION OF PROCEDURE: The patient was placed on the operating table in supine position, and after the induction of general anesthesia, the patients abdomen was prepped with ChloraPrep and draped in sterile fashion. A pneumoperitoneum was established above the umbilicus using a Veress needle to a pressure of 50 mmHg. A 5-mm port was placed, and then, laparoscopy carried out, and the previously noted findings were observed. Additional lateral 5-mm ports and a subxiphoid 12-mm port were placed. Because of the inability to grasp the gallbladder due to massive distension, a decompressing needle was placed into the fundus of the gallbladder and approximately 60-90 mL of bile was aspirated. The gallbladder was then grasped and placed on cephalad traction and lateral traction at the neck of gallbladder, and dissection was begun in the triangle of Calot. The peritoneum was opened medially and laterally using electrocautery and using blunt dissection. The cystic artery was first identified with overlying cystic artery lymph node. It was dissected proximally and distally for length. Working more laterally, the cystic duct was identified, as well, and dissected proximally and distally for length. A critical view of safety was taken, and these two structures were divided proximally and distally using EndoShears after the placement of large hemoclips. The gallbladder was then removed from the liver bed in a retrograde fashion using electrocautery. It was removed from the edge of the liver, placed in a specimen-retrieval bag, and brought out through the subxiphoid port. Pneumoperitoneum was reestablished and copious irrigation was carried out until the effluent was clear. Hemostasis was verified, and any bleeding points in the liver bed were coagulated using electrocautery. Again, hemostasis was verified, and then, a 5-mm Jose-Herrmann drain was introduced and placed in the right hepatorenal fossa and brought out through one of the 5-mm port sites and secured to the skin with 2-0 silk suture. Again, hemostasis was verified, and then all ports were removed under laparoscopic vision without evidence of bleeding from the port sites, and the pneumoperitoneum evacuated. Each port site was infiltrated with 0.5% Marcaine, and the port sites closed with 3-0 and 4-0 Biosyn. Steri-Strips and Band-Aid dressings were placed. The drain was connected to its bulb self-suction, and the patient aroused from general anesthesia and transferred to the post-anesthesia care unit in stable condition, awake and alert. ESTIMATED BLOOD LOSS: 100 mL. REPLACEMENTS: Crystalloid. DRAINS: One 10-mm Jose-Herrmann. SPECIMENS: Gallbladder and contents to Pathology. I, Cr Stein, was physically present in the operating room from the time the patient was placed on the operating table until she was transferred to the post-anesthesia care unit in my accompaniment. MD AQUILINO Foster/[id number]
[2016-11-19] MEDS ORDERED: PIPERACILLIN/TAZOBACTAM 3.375 GM VIAL IVPB ONE ×2 (10:56→17:00)
[2016-11-19] MEDS ORDERED: DEXTROSE 5%-WATER - 50 ML IVPB ONE ×2 (10:56→17:01)
[2016-11-19 12:51] LABS: TOTAL CELLS COUNTED 100
--- NOTE | 2016-11-19 18:37 | EKG ---
Test Reason : Blood Pressure : / mmHG Vent. Rate : 087 BPM Atrial Rate : 087 BPM P-R Int : 134 ms QRS Dur : 080 ms QT Int : 374 ms P-R-T Axes : 073 046 038 degrees QTc Int : 450 ms NORMAL SINUS RHYTHM T WAVE ABNORMALITY, CONSIDER ANTERIOR ISCHEMIA ABNORMAL ECG WHEN COMPARED WITH ECG OF 15-NOV-2016 10:55, NONSPECIFIC T WAVE ABNORMALITY NOW EVIDENT IN INFERIOR LEADS NONSPECIFIC T WAVE ABNORMALITY NOW EVIDENT IN LATERAL LEADS Confirmed by LISA SNELL MD ([id number]) on 11/19/2016 6:37:08 PM Referred By: Daina POSEY Confirmed By:LISA SNELL MD
[2016-11-19 19:11] LABS: TOTAL CELLS COUNTED 100
[2016-11-19] MEDS: MIRTAZAPINE 15 MG TABLET (FP) PO SCH (21:42)
[2016-11-20] MEDS ORDERED: PIPERACILLIN/TAZOBACTAM 3.375 GM VIAL IVPB ONE ×3 (01:34→16:40)
[2016-11-20] MEDS ORDERED: DEXTROSE 5%-WATER - 50 ML IVPB ONE ×3 (01:34→16:40)
[2016-11-20] MEDS: PIPERACILLIN/TAZOB 3.375 GM 3.375 GM in DEXTROSE 5%-WATER - 50 ML IVPB SCH ×3 (01:40→17:25)
[2016-11-20] MEDS: SODIUM CHLORIDE 1,000 ML with POTASSIUM CHLORIDE 40 MEQ IV SCH (01:44)
--- NOTE | 2016-11-20 07:16 | PN ---
Progress Note (short form) - Note Progress Note: ANESTHESIA POST OP NOTE PATIENT IS A 85 YEAR OF FEMALE STATUS POST LAP CHOLECYSTECTOMY UNDER GENERAL ANESTHESIA POST OP DAY TWO. PATIENT APPEARS TO HAVE NO ADVERSE REACTION TO THE ANESTHETIC, DIFFICULT TO ASSESS DUE TO COMMUNICATION BARRIERS. APPEARS COMFORTABLE, NO NAUSEA OR VOMITING. DEPT OF ANESTHESIA WILL SIGN OFF CARE AT THIS TIME.
[2016-11-20 07:23] LABS: BASOPHIL 0.1 % (0-2.0); MCHC 34.5 g/dl (32.0-36.0); MEAN PLT VOLUME 7.9 fl (7.5-11.1); NEUTROPHILS 78.5 % (42.8-82.8); PLATELET COUNT 254 K/MM3 (134-434); WHITE BLOOD COUNT 6.4 K/mm3 (4.0-10.0)
[2016-11-20 07:50] LABS: ALBUMIN 2.7 g/dl (3.4-5.0); ALK PHOS 130 U/L (45-117); ANION GAP 7 (8-16); BILIRUBIN,TOTAL 0.5 mg/dL (0.2-1.0); CALCIUM 8.7 mg/dL (8.5-10.1); CO2 30 mmol/L (21-32); CREATININE 0.6 mg/dL (0.55-1.02); GLUCOSE,RANDOM 127 mg/dL (74-106); MAGNESIUM 2.1 mg/dL (1.8-2.4); PHOSPHOROUS 1.3 mg/dL (2.5-4.9); SGOT/AST 19 U/L (15-37); SGPT/ALT 57 U/L (12-78); TOT PROT 5.6 g/dl (6.4-8.2)
[2016-11-20] MEDS: QUEtiapine FUMARATE 25 MG TABLET (FP) PO SCH ×2 (10:46→21:21)
[2016-11-20] MEDS: HEPARIN NA (PORCINE) 5,000 UNITS/ML 1ML VIAL SQ SCH ×2 (10:50→21:21)
[2016-11-20] MEDS: FAMOTIDINE 20 MG/50 ML IVPB 50 ML IVPB SCH ×2 (10:50→21:20)
[2016-11-20] MEDS: DONEPEZIL HCL 10 MG TABLET (FP) PO SCH (10:50)
[2016-11-20] MEDS: DOCUSATE SODIUM 100 MG CAPSULE (FP) PO SCH ×2 (10:51→21:20)
--- NOTE | 2016-11-20 12:39 | PN ---
Physical Exam: SUBJECTIVE: Patient seen and examined. She seems comfortable. OBJECTIVE: Vital Signs Period Temp Pulse Resp BP Sys/Dubon Pulse Ox Last 24 Hr 97.6 F-98.7 F 87-99 18-20 121-150/81-90 96 GEN: Awake, alert CVS: RRR PULM: CTAB ABD: soft, non-tender, NABS EXTREM: warm ,well perfused Laboratory Results - last 24 hr 11/19/16 11/20/16 11/20/16 06:00 06:00 06:00 WBC 10.5 H D 6.4 D RBC 3.84 3.77 Hgb 11.9 11.3 Hct 33.9 32.8 MCV 88.3 87.0 MCH 31.0 30.0 MCHC 35.1 34.5 RDW 12.6 13.0 Plt Count 254 D 254 MPV 8.1 7.9 Neutrophils % 78.5 Neutrophils % (Manual) 92 H* Lymphocytes % 14.6 D Lymphocytes % (Manual) 6 L Monocytes % 5.8 Monocytes % (Manual) 1 L Eosinophils % 1.0 Eosinophils % (Manual) 1 Basophils % 0.1 Sodium 144 Potassium 3.9 Chloride 107 Carbon Dioxide 30 Anion Gap 7 L BUN 5 L Creatinine 0.6 Creat Clearance w eGFR > 60 Random Glucose 127 H Calcium 8.7 Phosphorus 1.3 L D Magnesium 2.1 Total Bilirubin 0.5 D AST 19 D ALT 57 D Alkaline Phosphatase 130 H D Total Protein 5.6 L Albumin 2.7 L Active Medications Generic Name Dose Route Start Last Admin Trade Name Freq PRN Reason Stop Dose Admin Docusate Sodium 100 mg 11/18/16 22:00 11/20/16 10:51 Colace - PO Not Given BID VALE Donepezil HCl 10 mg 11/19/16 10:00 11/20/16 10:50 Aricept - PO 10 mg DAILY VALE Administration Haloperidol 0.5 mg 11/18/16 16:43 Haldol - PO TID PRN AGITATION Heparin Sodium (Porcine) 5,000 unit 11/18/16 22:00 11/20/16 10:50 Heparin - SQ 5,000 unit BID VALE Administration Famotidine/Sodium Chloride 50 mls @ 100 mls/hr 11/18/16 22:00 11/20/16 10:50 Pepcid 20 Mg Premixed Ivpb - IVPB 100 mls/hr BID VALE Administration Piperacillin Sod/Tazobactam 50 mls @ 100 mls/hr 11/18/16 18:00 11/20/16 10:50 Sod 3.375 gm/ Dextrose IVPB 100 mls/hr Q8H-IV VALE Administration Potassium Chloride 40 meq/ 1,020 mls @ 100 mls/hr 11/18/16 23:16 11/20/16 01:44 Sodium Chloride IV 100 mls/hr Q10H VALE Administration Mirtazapine 15 mg 11/18/16 22:00 11/19/16 21:42 Remeron - PO 15 mg HS VALE Administration Morphine Sulfate 1 mg 11/18/16 16:43 11/19/16 10:58 Morphine Injection - IVPUSH 1 mg Q4H PRN Administration PAIN Ondansetron HCl 4 mg 11/18/16 16:43 Zofran Injection IVPB Q6H PRN NAUSEA Quetiapine Fumarate 50 mg 11/18/16 22:00 11/20/16 10:46 Seroquel - PO 50 mg BID VALE Administration ASSESSMENT/PLAN: The patient is a 71 year old female with a significant past medical history of Alzheimer's dementia and GERD who is now HD#5 and POD#2 s/p cholecystectomy for acute cholecystitis. #GI Acute cholecystitis Doing well post-op POD#2 s/p CCY Continue Zosyn Surgery following #FEN Hypokalemia resolved Continue to replete prn Change IVF to D51/2NS @ 125ml/hr Surgery to determine diet advancement #NEURO Alzheimers dementia MS at baseline Continue Aricept, Seroquel, Remeron Haldol prn #GI GERD Continue IV Pepcid Can likely change to po H2 miguelina soon #PROPHYLAXIS Hep SQ Pepcid IV Visit type - Emergency Visit Emergency Visit: Yes ED Registration Date: 11/15/16 Care time: The patient presented to the Emergency Department on the above date and was hospitalized for further evaluation of their emergent condition. - New Patient This patient is new to me today: No - Critical Care Critical Care patient: No
--- NOTE | 2016-11-20 13:31 | PN ---
Progress Note (short form) - Note Progress Note: Attending Surgeon POD #2 No c/o a/t her ; minimal pain; tolerating diet; ambulating VSS AF abdo-soft; port sites c/d/i; TANNER w/minimal serosanguinous output LFT's and bili and WBC WNL;; IMP: doing well PLAN:Continue present tx; d/c planning; possible drain removal tomorrow; diet as tolerated Cr Stein MD FACS
[2016-11-20] MEDS: DEXTROSE 5%-0.45% SALINE 1,000 ML IV SCH (17:24)
[2016-11-20] MEDS: MIRTAZAPINE 15 MG TABLET (FP) PO SCH (21:22)
[2016-11-21] MEDS ORDERED: PIPERACILLIN/TAZOBACTAM 3.375 GM VIAL IVPB ONE (00:58)
[2016-11-21] MEDS ORDERED: DEXTROSE 5%-WATER - 50 ML IVPB ONE (00:59)
[2016-11-21] MEDS: PIPERACILLIN/TAZOB 3.375 GM 3.375 GM in DEXTROSE 5%-WATER - 50 ML IVPB SCH ×2 (01:55→10:22)
[2016-11-21] MEDS: DEXTROSE 5%-0.45% SALINE 1,000 ML IV SCH (01:57)
[2016-11-21 07:28] LABS: MCH 30.4 pg (25.7-33.7); MCHC 34.5 g/dl (32.0-36.0); MEAN PLT VOLUME 7.8 fl (7.5-11.1); PLATELET COUNT 289 K/MM3 (134-434); RDW 12.6 % (11.6-15.6); WHITE BLOOD COUNT 5.7 K/mm3 (4.0-10.0)
[2016-11-21 07:46] LABS: ALBUMIN 2.6 g/dl (3.4-5.0); ANION GAP 7 (8-16); BILIRUBIN,TOTAL 0.7 mg/dL (0.2-1.0); CALCIUM 8.8 mg/dL (8.5-10.1); CO2 32 mmol/L (21-32); CREATININE 0.7 mg/dL (0.55-1.02); GLUCOSE,RANDOM 134 mg/dL (74-106); MAGNESIUM 2.1 mg/dL (1.8-2.4); PHOSPHOROUS 1.6 mg/dL (2.5-4.9); SGOT/AST 15 U/L (15-37); SGPT/ALT 45 U/L (12-78); TOT PROT 5.6 g/dl (6.4-8.2)
[2016-11-21 07:47] LABS: ALK PHOS 108 U/L (45-117)
--- NOTE | 2016-11-21 09:42 | PN ---
Progress Note (short form) - Note Progress Note: Attending Surgeon POD # 3 Tolerating diet; no c/o a/t her ; slept well last night a/t nurse; having BM's VSS AF abdomen-soft; non tender; port sites c/d/i and healing well; TANNER minimal ss output; o/w negative WBC/LFT's and bili normal IMP:doing well PLAN: d/c drain; stable for d/c t office f/u 7- 10 days Cr Stein MD FACS
[2016-11-21 10:00] VITALS: BP 124/90; PULSE 94; TEMP 97.7
[2016-11-21] MEDS: DONEPEZIL HCL 10 MG TABLET (FP) PO SCH (10:18)
[2016-11-21] MEDS: QUEtiapine FUMARATE 25 MG TABLET (FP) PO SCH (10:19)
[2016-11-21] MEDS: DOCUSATE SODIUM 100 MG CAPSULE (FP) PO SCH (10:19)
[2016-11-21] MEDS: HEPARIN NA (PORCINE) 5,000 UNITS/ML 1ML VIAL SQ SCH (10:19)
[2016-11-21] MEDS: FAMOTIDINE 20 MG/50 ML IVPB 50 ML IVPB SCH (10:19)
[2016-11-21] MEDS ORDERED: NAPH,MB-DB/K PH,MBDB POWDER PACKET PO ONE (11:00)
--- NOTE | 2016-11-21 12:58 | PN ---
Teaching Attending Note Name of Resident: Chas Posadas ATTENDING PHYSICIAN STATEMENT I saw and evaluated the patient. I reviewed the resident's note and discussed the case with the resident. I agree with the resident's findings and plan as documented. SUBJECTIVE: Patient has no complaints. Appetite is poor but she is tolerating PO. OBJECTIVE: Vital Signs Period Temp Pulse Resp BP Sys/Dubon Pulse Ox Last 24 Hr 97.7 F-98.9 F 84-107 18-20 114-140/57-90 95-96 HEART: S1S2, RRR LUNGS: Clear ABDOMEN: Soft, non-tender, non-distended, normal BS EXTREMITIES: No edema ASSESSMENT AND PLAN: This is a 71 year old woman with a history of Alzheimer dementia, GERD who presented to the ER with abdominal pain. 1. Acute cholecystitis with gangrenous gallbladder - s/p lap terrell 11/18 - TANNER drain removed today - Tolerating diet - OK for discharge home today 2. Hypokalemia - Resolved 3. Alzheimer dementia - Continue Aricept, Seroquel, Remeron 4. GERD - Resume Zantac at discharge
--- NOTE | 2016-11-21 13:10 | DS ---
Physical Exam: LABS Microbiology 11/15/16 10:18 Urine - Urine Clean Catch Urine Culture - Final Contaminated: Please Repeat 11/15/16 10:18 Blood - Peripheral Venous Blood Culture - Final NO GROWTH AFTER 5 DAYS INCUBATION 11/15/16 10:18 Blood - Peripheral Venous Blood Culture - Final NO GROWTH AFTER 5 DAYS INCUBATION Selected Entries 11/15/16 11/15/16 11/17/16 09:45 23:00 18:00 Output, Drainage Amount [carlos] Temperature 98.5 F Pulse Rate 94 H 103 H Blood Pressure 190/100 O2 Sat by Pulse Oximetry (%) Oxygen Delivery Method 11/18/16 11/18/16 11/19/16 06:00 22:00 06:00 Output, 120 Drainage Amount [carlos] Temperature Pulse Rate 100 H 112 H 105 H Blood Pressure O2 Sat by Pulse Oximetry (%) Oxygen Delivery Method 11/19/16 11/19/16 11/20/16 18:16 22:34 06:27 Output, 100 20 30 Drainage Amount [carlos] Temperature Pulse Rate Blood Pressure O2 Sat by Pulse Oximetry (%) Oxygen Delivery Method 11/20/16 11/21/16 11/21/16 23:37 06:00 06:54 Output, 20 20 Drainage Amount [carlos] Temperature Pulse Rate 107 H Blood Pressure O2 Sat by Pulse Oximetry (%) Oxygen Delivery Method 11/21/16 09:00 Output, Drainage Amount [carlos] Temperature 97.7 F Pulse Rate 94 H Blood Pressure 124/90 O2 Sat by Pulse 96 Oximetry (%) Oxygen Delivery Room Air Method Laboratory Tests 11/15/16 11/16/16 11/16/16 10:18 07:55 07:55 WBC 14.0 H D 10.3 H Neutrophils % 83.7 H D 83.8 H Sodium Potassium 3.5 Chloride Carbon Dioxide BUN Creatinine Random Glucose Phosphorus AST 208 H D ALT 141 H D Alkaline Phosphatase 143 H D Total Amylase 71 D Lipase 221 11/17/16 11/17/16 11/18/16 06:00 06:00 10:50 WBC 7.3 Neutrophils % Sodium Potassium 3.1 L 2.9 L* Chloride Carbon Dioxide BUN Creatinine Random Glucose Phosphorus AST ALT Alkaline Phosphatase Total Amylase Lipase 11/19/16 11/19/16 11/20/16 06:00 06:00 06:00 WBC 10.5 H D 6.4 D Neutrophils % Sodium Potassium 3.3 L Chloride Carbon Dioxide BUN Creatinine Random Glucose Phosphorus AST ALT Alkaline Phosphatase Total Amylase Lipase 11/20/16 11/21/16 11/21/16 06:00 06:00 06:00 WBC 5.7 Neutrophils % Sodium 145 Potassium 3.9 3.8 Chloride 106 Carbon Dioxide 32 BUN 4 L Creatinine 0.7 Random Glucose 134 H Phosphorus 1.3 L D 1.6 L D AST 15 D ALT 45 D Alkaline Phosphatase 108 Total Amylase Lipase Imaging- 11/15- cxr- No acute pathology. No change of an adverse nature since 01/21/2016. 11/15- ct abd/pelvis with contrast- Over distended/hydrops of the gallbladder without wall thickening or gross intraluminal stones. However, there is a small amount of pericholecystic free fluid as well as a small amount of free fluid in the pelvis. Normal size common bile duct. [id number] dilatation of the intrahepatic bile ducts. Correlate clinically for further evaluation. There is no evidence of small bowel obstruction. Nonvisualization of the appendix and uterus. Small pericardial effusion again seen 11/15- abd u/s-Slightly distended gallbladder with multiple gallstones. There is no sonographic evidence of choledocholithiasis or acute cholecystitis. Clinical correlation and follow-up recommended. Please see above discussion. 11/16- hida- Nonvisualization of the gallbladder strongly suspicious for acute cholecystitis. Please see above discussion. 11/16- mri abdomen MRCP-Distended gallbladder with thickening of the gallbladder wall with gallstones. This is suspicious for cholecystitis. There is no dilatation of the intrahepatic ducts, common bile duct or of the pancreatic duct. There are no abdominal masses or collections. EKG- 11/15- nsr, t wave abnormality 11/19- nsr, t wave abnormality HOSPITAL COURSE: Date of Admission:11/15/16 Date of Discharge: 11/21/16 71 y.o. F with pmh of Alzheimer's, GERD, acute cholecystitis (Jan 2016), hemorrhoids, and 9 hour daily home health aide presented with RLQ abdominal pain , right flank pain, and subrapubic tenderness. Patient is nonverbal. stated patient was having worsening RLQ abdominal and flank pain. Patient had decreased appetite and had multiple episodes of blood tinged emesis on Monday night into Monday morning. felt patient's pain was worsening and urine was smelling foul with dysuria, so he brought her in to the ED. In the ED, patient found to have (1)WBC-14, Amylase- 120, Lipase- 496, (2)UA- 2 + LE, 48 WBC, (3)CT abd pelvis- overdistended gb with pericholecystic fluid, normal CBD, (4)US abd- slightly distended gallbladder with multiple gallstones. no evidence of choledhocolithiasis or acute cholecystitis. Patient admitted for distended gallbladder and UTI Surgery and GI were consulted. Patient had acute transaminitis and underwent HIDA scan, which showed acute cholecystitis. MRCP was done, which showed no choledocholithiasis. Patient underwent an uncomplicated cholecystectomy and completed 6 days of Zosyn to cover for acute cholecystitis and UTI. Patient will be sent home with no antibiotics and [facility]. Minutes to complete discharge: 45 Discharge Summary Reason For Visit: PANCREATITIS DUE TO BILIARY OBSTRUCTION Current Active Problems Cholecystitis, acute (Acute) UTI (urinary tract infection) (Acute) Alzheimer disease (Chronic) GERD (gastroesophageal reflux disease) (Chronic) Condition: Improved - Instructions Diet, Activity, Other Instructions: You were in the hospital due to an inflammed gallbladder, which was removed. Please follow up with your primary care provider within 1 week. Please follow up with the surgeon (Dr. Stein) within 7-10 days. A referral has been provided for you. Continue your home medications as prescribed. There have been no changes to your medications. If you have any new chest pain, shortness of breath, or any new symptoms please come back to the hospital immediately. Referrals: Cr Stein MD [Staff Physician] - Disposition: HOME - Home Medications Comprehensive Discharge Medication List: Ambulatory Orders Docusate Sodium [Colace -] 100 mg PO BID 01/22/16 Donepezil HCl [Aricept] 10 mg PO DAILY 01/22/16 Quetiapine Fumarate [Seroquel -] 50 mg PO BID 01/22/16 Mirtazapine 15 mg PO HS 11/15/16 Ranitidine [Zantac -] 150 mg PO DAILY 11/15/16 This patient is new to me today: No Emergency Visit: Yes ED Registration Date: 11/15/16 Care time: The patient presented to the Emergency Department on the above date and was hospitalized for further evaluation of their emergent condition. Critical Care patient: No - Discharge Referral Referred to [facility] No
--- NOTE | 2016-11-22 13:57 | PATH ---
Surgical Pathology Report Patient Name: JAQUELINE SOLARES Med. Rec. #: [id number] /Age/Gender: 1945 (Age: 71) / F Account: [id number] Location: [facility] MED/SURG Taken: 11/18/2016 Received: 11/21/2016 Reported: 11/22/2016 Physicians: rC Stein MD Specimen(s) Received GALLBLADDER Clinical History Acute cholecystitis Final Diagnosis GALLBLADDER, CHOLECYSTECTOMY: ACUTE HEMORRHAGIC AND CHRONIC CHOLECYSTITIS, CHOLELITHIASIS AND CHOLESTEROLOSIS. Electronically Signed Figueroa Bose M.D. Gross Description Received in formalin, labeled "gallbladder" is a 11.6 x 5.5 x 2.1 cm gallbladder with a 1 cm in length portion of cystic duct attached. The outer surface is red and brown and varies from smooth to shaggy. The lumen contains scant hemorrhagic material, along with proximally 15 yellow stones up to 0.6 cm in greatest dimension. The mucosa is red and brown with yellow speckling. The wall of the gallbladder measures up to 0.5 cm in thickness with a focal defect. [employer] Reactor Operator sections are submitted in one cassette. [facility]/11/21/2016 [facility]/11/21/2016
== END 2016-11-21 14:27 | disposition home or self-care (01) | DRG 418 ==
LOC: JER 09:42 → JERBED 15:15 → J7W 22:41
PROVIDERS: ADMIT Internal Medicine; ATTEND Internal Medicine
PROC: 0FT44ZZ Resection of Gallbladder, Percutaneous Endoscopic Approach (ICD-10-PCS; principal; 2016-11-18 11:00)
DX: K80.00 Calculus of gallbladder with acute cholecystitis without obstruction (principal); N39.0 Urinary tract infection, site not specified; K21.9 Gastro-esophageal reflux disease without esophagitis; G30.8 Other Alzheimer's disease; F02.80 Dementia in other diseases classified elsewhere, unspecified severity, without behavioral disturbance, psychotic disturbance, mood disturbance, and anxiety; K64.8 Other hemorrhoids; R45.1 Restlessness and agitation; G47.09 Other insomnia; R74.0 Nonspecific elevation of levels of transaminase and lactic acid dehydrogenase [LDH]; E87.6 Hypokalemia
CPT/HCPCS: 36415; 71010-TC; 74177-TC; 74181-TC; 76705-TC; 78226-TC; 80053; 81003; 81015; 82150; 82803; 83605; 83690; 83735; 84100; 84484; 85025; 85027; 85610; 85730; 86850; 86900; 86901; 87040; 87086; 88304-TC; 93005; 93010; 94760; 97116-GP; 97161-GP; 99285-25; A9537; J1644

== ENCOUNTER 2017-11-10 08:25 | Observation (INO) | payer MEDICARE, OTHER ==
--- NOTE | 2017-11-10 08:37 | PDOC ---
Attending Attestation - Resident Resident Name: Luz Maria Concepcion - ED Attending Attestation I have performed the following: I have examined & evaluated the patient, The case was reviewed & discussed with the resident, I agree w/resident's findings & plan, Exceptions are as noted - HPI HPI: 11/10/17 08:37 72y F hx of alzheimers presents with complaint of seizure. Pt was in her USOH this until thi smorning when she had a witnessed tonic clonic seizure from her . There was urinary incontinence. The pt didnt fall as the was able tocatch the patient before she fell. history limited from pt due to her advance dementia (nonverbal at baseline, but usually will react to her husbands voice). No recent fevers/chills, obvious pain/discomfort. notes recent uti a fe weeks ago. also had a recent occasinoal cough. no hx of seizures ROS lmited due to pts dementia GENERAL: The patient is awake, looking around, mumbling HEAD: Normocephalic, atraumatic. EYES: extraocular movements intact, sclera anicteric, conjunctiva clear. ENT: Normal voice, Moist mucous membranes. NECK: Normal range of motion, supple LUNGS: Breath sounds equal, clear to auscultation bilaterally. No wheezes, no rhonchi, no rales. HEART: tachycardic w.o m/r/g ABDOMEN: Soft, nontender, No guarding, no rebound. No CVA tenderness EXTREMITIES: no edema. NEUROLOGICAL: No facial assymetry, moving all 4 extremities spontaneously and symmetrically PSYCH: Normal mood, normal affect. SKIN: Warm, Dry, normal turgor, ddx wide for her seizure - organic cause (mass/bleed) vs occult infection, metabolic dernagemnt labs, ekg, cxr, ua conrado lreassess - Physicial Exam PE: 11/12/17 16:08 see above - Medical Decision Making 11/10/17 11:22 labs unremarkable noted for elev lactic acid - suspect secondary to seizrure ct head neg pt was agitated and was given .5mg ativan, HR also improved will admit for further evauatio nof new seizures Heart Score/ECG Review - ECG Impressions Comment:: 11/10/17 08:47 Twelve-lead EKG was performed and reviewed by me. There is normal sinus rhythm with a rate of 118 Normal axis nonspecific t wave abnormalities
[2017-11-10 08:40] VITALS: BMI 25.4
[2017-11-10] MEDS ORDERED: SODIUM CHLORIDE 500 ML IV STA (08:42)
--- NOTE | 2017-11-10 08:43 | PDOC ---
History of Present Illness - General Chief Complaint: Seizure Stated Complaint: SEIZURE Time Seen by Provider: 11/10/17 08:36 History Source: EMS, Spouse Exam Limitations: Clinical Condition (Pt post-ictal, AMS from baseline. Pt also has dementia.), Dementia - History of Present Illness Initial Comments: Pt, with PMH of Alzheimer's dementia (on mirtazapine and risperidone), and gangrenous cholecysitis (removed Nov 2016), presents via EMS after a witnessed seizure. EMS states that pt had a tonic clonic seizure, and was caught by her with no fall to the head. The sz lasted approximately 4-5 minutes with generalized shaking, urinary incontinence, and tongue biting. EMS provided O2 on the ambulance, with no other interventions. Glucose was 130s during transit. The pt normally has minimal verbal interaction (can respond to basic questions, will complain of pain), but is more altered after the seizure according to . The also states that she has had recent dry cough and was treated for a UTI about 3 weeks ago. She recently had foul-smelling urine and he gave her "left-over pills from the infection". She has not had fever or chills, or any complaints of pain. ROS is limited by her limited verbal status. 11/10/17 10:09 Past History - Travel Traveled outside of the country in the last 30 days: No Close contact w/someone who was outside of country & ill: No - Past Medical History Allergies/Adverse Reactions: Allergies Allergy/AdvReac Type Severity Reaction Status Date / Time No Known Allergies Allergy Verified 11/10/17 10:35 Home Medications: Ambulatory Orders Docusate Sodium [Colace -] 100 mg PO BID 01/22/16 Quetiapine Fumarate [Seroquel -] 50 mg PO BID 01/22/16 Mirtazapine 15 mg PO HS 11/15/16 Ranitidine [Zantac -] 150 mg PO DAILY 11/15/16 COPD: No Dementia: Yes HTN: No Hypercholesterolemia: No Psychiatric Problems: Yes (Alzheimer's dementia ) Seizures: No - Suicide/Smoking/Psychosocial Hx Smoking History: Never smoked Have you smoked in the past 12 months: No Information on smoking cessation initiated: No Hx Alcohol Use: No Drug/Substance Use Hx: No Substance Use Type: None Hx Substance Use Treatment: No Review of Systems - Review of Systems Able to Perform ROS?: No (limited verbal) Is the patient limited Egyptian proficient: Yes Constitutional: No: Chills, Diaphoresis, Fever, Weight Stable (weight gain since starting risperidone) HEENTM: No: Hearing Loss Respiratory: Yes: Cough (dry cough over past week). No: Orthopnea, Shortness of Breath, Wheezing, Productive cough Cardiac (ROS): No: Syncope ABD/GI: No: Constipated, Diarrhea, Difficulty Swallowing, Poor Appetite, Poor Fluid Intake : No: Frequency ("foul-smelling" urine earlier this week) Musculoskeletal: No: Back Pain, Joint Pain, Muscle Weakness Integumentary: No: Bruising, Pruritus, Rash Neurological: Yes: Seizure. No: Tremors, Weakness, Unsteady Gait (pt can usually ambulate around the house with no difficulty), Ataxia, Dizziness Psychiatric: Yes: Anxiety, Emotional Problems (Alzheimers dementia). No: Sleep Pattern Change, Change in Appetite Endocrine: Yes: Change in Weight (weight gain from medication change). No: Increased Urine Hematologic/Lymphatic: No: Anemia, Blood Clots, Easy Bleeding *Physical Exam - Vital Signs Last Vital Signs Temp Pulse Resp BP Pulse Ox 97.8 F 124 H 20 156/107 98 11/10/17 08:38 11/10/17 08:38 11/10/17 08:38 11/10/17 08:38 11/10/17 08:38 - Physical Exam General Appearance: Yes: Nourished, Appropriately Dressed, Apparent Distress ( pt with repetitive speech, tachycardic. Withdraws from painful stimuli but not responding to verbal commands.), Thin HEENT: positive: EOMI, TASNEEM, Normal Voice, Symmetrical, Pharynx Normal, Hearing Grossly Normal, Other (multiple tongue biting lesions). negative: Normal ENT Inspection, Scleral Icterus (R), Scleral Icterus (L), Excessive drooling Neck: positive: Trachea midline, Normal Thyroid, Supple. negative: Tender, Rigid, Decreased range of motion, Lymphadenopathy (R), Lymphadenopathy (L), Rigidity Respiratory/Chest: positive: Lungs Clear, Normal Breath Sounds. negative: Chest Tender, Respiratory Distress, Accessory Muscle Use, Crackles, Stridor, Wheezing Cardiovascular: positive: Regular Rhythm, S1, S2, Tachycardia. negative: Regular Rate, Edema, JVD, Murmur Vascular Pulses: Dorsalis-Pedis (R): 4+, Doralis-Pedis (L): 4+ Gastrointestinal/Abdominal: positive: Normal Bowel Sounds, Flat, Soft. negative : Tender, Organomegaly, Pulsatile Mass, Guarding, Rebound, Tenderness Lymphatic: negative: Adenopathy, Tenderness Musculoskeletal: positive: Normal Inspection. negative: CVA Tenderness, Decreased Range of Motion Extremity: positive: Normal Capillary Refill, Normal Inspection, Normal Range of Motion, Pelvis Stable. negative: Tender, Cyanosis, Pedal Edema, Erythema Integumentary: positive: Normal Color, Dry, Warm. negative: Jaundice, Diaphoresis, Hives, Petechiae, Rash, Swelling, Ecchymosis, Bruising Neurologic: positive: Alert (withdraws from painful stimulus. Cannot respond to verbal commands to test all vice president of brand management), Motor Strength 5/5, Respond to painful stimul , Responsive, Confused, Disoriented. negative: vice president of brand management II-XII NML intact, Fully Oriented, Normal Mood/Affect, Normal Response, EOM Palsy, Facial Droop ED Treatment Course - LABORATORY CBC & Chemistry Diagram: 11/10/17 08:50 11/10/17 08:50 - RADIOLOGY Radiology Studies Ordered: CT head, non-contrast: CT scan of the brain without intravenous contrast. There is generalized volume loss and moderate ventricular dilatation. Probable mild to moderate periventricular chronic microvascular ischemic disease changes are present. No mass lesion, gross acute infarct or hemorrhage are identified. Minimal mucosal thickening in the ethmoid air cells. The mastoid air cells are well aerated. Calcification of the cavernous carotid arteries are present. The calvarium is intact. IMPRESSION: Generalized volume loss and moderate ventricular dilatation. No gross acute intracranial pathology is identified. Correlate clinically to determine evaluation and follow -up 11/10/17 11:00 Medical Decision Making - Medical Decision Making Pt was seen at bedside after being brought by EMS. History provided by EMS and pt's . Pt had witnessed sz by , with no fall to the head. Pt continues to be altered from baseline according to , and has signs of tongue biting. states she has had recent urinary tract infection and dry cough. Glucose in ambulance was 130s, no abnormality seen on ECG, O2 was given. Ordered sepsis work-up, 0.5 L fluid, CT head non-contrast to r/o mass or bleed, and portable chest x-ray to r/o pneumonia. Pending lab results. Pt still tachycardic (providing fluids), but afebrile (97.9 by rectal temp). 11/10/17 08:51 Lactate 4.8, Glucose 180. Other lab values WNL. Pt calm after receiving 0.5 mg Ativan IV (pt was still altered and was becoming agitated, trying to remove IV). Will be sent to CT scan. stated that neurologist (saw a neurologist on [address] in the [place], unsure of name) has said seizures may start to occur due to advancement of Alzheimer's dementia. 11/10/17 10:06 CT scan showed chronic degeneration, no acute ischemia or hemorrhage. Spoke to hospitalist, will admit to observation. Will also consult neurology ( Dr. Chavez oncology pharmacist). Paging now via [employer]. 11/10/17 11:[address] Chavez, who will see the pt. He asked for MRI brain with contrast and EEG to be ordered in ER. Orders placed. Son informed of PCP: DR. Rosa Banda ([phone]) 11/10/17 11:57 Repeat Lactic acid 1.7. Elevation likely due to seizure. Hospitalist at bedside. 11/10/17 12:08 Pt provided additional 0.5 mg Ativan due to agitation. Now resting calmly. May need to give additional dose for MRI. 11/10/17 12:55 Pt was given additional 0.5 mg Ativan for MRI. Pt was taken for admission. 11/10/17 16:12 *DC/Admit/Observation/Transfer Diagnosis at time of Disposition: New onset seizure Alzheimer disease Qualifiers: Alzheimer's disease onset: unspecified onset Dementia behavioral disturbance: with behavioral disturbance Qualified Code(s): G30.9 - Alzheimer's disease, unspecified - Discharge Dispostion Condition at time of disposition: Stable Decision to Admit order: Yes - Referrals - Patient Instructions - Post Discharge Activity
[2017-11-10 09:07] LABS: BASO % 0.4 % (0-2.0); EOS % 1.2 % (0-4.5); HEMATOCRIT 38.4 % (32.4-45.2); HEMOGLOBIN 12.8 GM/dL (10.7-15.3); LYMPH % 30.3 % (8-40); MCHC 33.3 g/dl (32.0-36.0); MEAN PLT VOLUME 7.6 fl (7.5-11.1); NEUT % 64.1 % (42.8-82.8); PLATELET COUNT 196 K/MM3 (134-434); RBC 4.27 M/mm3 (3.60-5.2); RDW 12.8 % (11.6-15.6)
[2017-11-10 09:16] LABS: VENOUS PC02 40.2 mmHg (38-52); VENOUS PH 7.39 (7.32-7.42); VENOUS PO2 51.4 mmHg (28-48)
[2017-11-10 09:22] LABS: PROTHROMBIN TIME (PATIENT) 11.3 SEC (9.7-13.0)
[2017-11-10 09:25] LABS: ACTIVATED PTT 25.9 SECONDS (25.2-36.5)
[2017-11-10] MEDS ORDERED: LORazepam 2 MG/ML SDV VIAL ONE ×3 (09:29→15:15)
[2017-11-10 09:30] LABS: ALBUMIN 3.7 g/dl (3.4-5.0); ANION GAP 8 (8-16); BILIRUBIN,TOTAL 0.3 mg/dL (0.2-1.0); BLOOD UREA NITROGEN 11 mg/dL (7-18); CALCIUM 8.9 mg/dL (8.5-10.1); CHLORIDE 106 mmol/L (98-107); CO2 27 mmol/L (21-32); CREATININE 0.9 mg/dL (0.55-1.02); GLUCOSE,RANDOM 180 mg/dL (74-106); POTASSIUM 4.3 mmol/L (3.5-5.1); SGOT/AST 20 U/L (15-37); SGPT/ALT 30 U/L (12-78); SODIUM 141 mmol/L (136-145); TOT PROT 6.8 g/dl (6.4-8.2)
[2017-11-10 09:32] LABS: ALK PHOS 73 U/L (45-117)
[2017-11-10] MEDS ORDERED: risperiDONE 0.25 MG TABLET (FP) PO SCH ×2 (12:15→12:45)
--- NOTE | 2017-11-10 12:25 | HP ---
Admitting History and Physical - Admission Chief Complaint: new onset seizure History of Present Illness: This is a 72 year old female with pmhx Alzheimer's dementia (on mirtazapine and risperidone), s/p cholecystectomy 11/2016 presented to the ED s/p witnessed seizure. Pt helped pt to her feet, brush teeth, she was walking to living room and he saw her seizure with tonic clonic movements, pt fell but caught her and lowered her to the floor. Per ED note, episode lasted ~5 mins with rigors, urinary incontinence, and tongue biting. She was post ictal in the ED, ativan 0.5mg given here with effect. Currently, she appears agitated, crying out, states she did not receive her morning meds. She prefers to be walking then being forced to sit down and children at bedside, reports daily aid from 9-6, however does need more help at night. Declining SNF. 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: Yes: Alzheimer's, Dementia (uncooperative and unable to communicate intelligibly.) Hepatobiliary: Yes: Cholecystitis - Past Surgical History Past Surgical History: Yes: Cholecystectomy - Smoking History Smoking history: Never smoked Have you smoked in the past 12 months: No - Alcohol/Substance Use Hx Alcohol Use: No - Social History Usual Living Arrangement: Yes: With Spouse ADL: Support Services History of Recent Travel: No Home Medications - Allergies Allergies/Adverse Reactions: Allergies Allergy/AdvReac Type Severity Reaction Status Date / Time No Known Allergies Allergy Verified 11/10/17 10:35 - Home Medications Home Medications: Ambulatory Orders Docusate Sodium [Colace -] 100 mg PO BID 01/22/16 Quetiapine Fumarate [Seroquel -] 50 mg PO BID 01/22/16 Mirtazapine 15 mg PO HS 11/15/16 Ranitidine [Zantac -] 150 mg PO DAILY 11/15/16 Review of Systems Unable to obtain ROS, reason: unable to obtain Physical Examination Vital Signs: Vital Signs Temperature 97.8 F 11/10/17 08:38 Pulse Rate 117 H 11/10/17 09:30 Respiratory Rate 22 11/10/17 09:30 Blood Pressure 160/70 11/10/17 09:30 O2 Sat by Pulse Oximetry (%) 99 11/10/17 09:30 Constitutional: Yes: Mild Distress Eyes: Yes: Conjunctiva Clear HENT: Yes: Atraumatic Neck: Yes: Supple Cardiovascular: Yes: Regular Rate and Rhythm, Tachycardia Gastrointestinal: Yes: Normal Bowel Sounds, Soft Musculoskeletal: Yes: Other (R hip tenderness) Edema: No Peripheral Pulses WNL: Yes Neurological: Yes: Alert, Pre-Existing Deficit Labs: CBC, BMP 11/10/17 08:50 11/10/17 08:50 Imaging - Results Chest X-ray: Report Reviewed, Image Reviewed Cat Scan: Report Reviewed Problem List - Problems (1) New onset seizure Code(s): R56.9 - UNSPECIFIED CONVULSIONS (2) Alzheimer disease Code(s): G30.9 - ALZHEIMER'S DISEASE, UNSPECIFIED Qualifiers: Alzheimer's disease onset: unspecified onset Dementia behavioral disturbance: with behavioral disturbance Qualified Code(s): G30.9 - Alzheimer' s disease, unspecified; F02.81 - Dementia in other diseases classified elsewhere with behavioral disturbance Assessment/Plan Assessment: 72 year old female admitted with new onset seizure Plan: 1. New onset seizure - Likely from progressing Alzheimer's dementia - Start keppra 250mg BID - MRI brain ordered - Neurology consulted 2. Alzheimer/dementia - Cont current meds 3. Elevated lactic acid - Resolved - Repeat level wnl after fluid resuscitation in ED 4. HTN - On no meds - Trend for now 5. DVT - Heparin sq Visit type - Emergency Visit Emergency Visit: Yes Care time: The patient presented to the Emergency Department on the above date and was hospitalized for further evaluation of their emergent condition. - New Patient This patient is new to me today: Yes Date on this admission: 11/10/17 - Critical Care Critical Care patient: No Hospitalist Screening - Colonoscopy Questionnaire Colonoscopy Questionnaire: Colonoscopy Questionnaire - Patient: 50 - 75 years old and never had a screening colonoscopy: Unknown History of colon or rectal polyps, or CA: Unknown History of IBD, Crohn's disease or UC: Unknown History of abdominal radiation therapy as a child: Unknown - Relative: 1 with colon or rectal CA, or polyps at age 60 or younger: Unknown Colon or rectal CA diagnosed at age 45 or younger: Unknown Multiple relatives with colon or rectal CA: Unknown - Outcome: Screening Result: Negative Screen
[2017-11-10] MEDS ORDERED: ACETAMINOPHEN 1000 MG/100 ML VIAL (NON FORMULARY) IVPB ONE (12:35)
[2017-11-10] MEDS ORDERED: levETIRAcetam 500 MG TABLET (FP) PO SCH (12:45)
[2017-11-10] MEDS: QUEtiapine FUMARATE 25 MG TABLET (FP) PO SCH ×2 (13:00→23:10)
[2017-11-10] MEDS: RANITIDINE HCL 150 MG TABLET (FP) PO SCH (13:00)
[2017-11-10] MEDS ORDERED: RANITIDINE HCL 150 MG TABLET (FP) ONE (13:04)
[2017-11-10] MEDS ORDERED: QUEtiapine FUMARATE 25 MG TABLET (FP) ONE ×2 (13:05→22:46)
[2017-11-10] MEDS ORDERED: levETIRAcetam 500 MG TABLET (FP) PO ONE ×2 (13:05→22:46)
[2017-11-10] MEDS ORDERED: ACETAMINOPHEN INJECTION 100 ML IVPB ONE (13:05)
[2017-11-10] MEDS ORDERED: risperiDONE 0.5 MG TABLET (FP) ONE ×2 (13:06→22:46)
[2017-11-10] MEDS: levETIRAcetam 250 MG TABLET (FP) PO SCH ×2 (14:04→22:30)
[2017-11-10 14:18] LABS: URINE APPEARANCE CLEAR; URINE BILIRUBIN NEGATIVE (<2.0 mg/dL); URINE COLOR STRAW; URINE GLUCOSE (UA) NEGATIVE (NEGATIVE); URINE KETONE NEGATIVE (NEGATIVE); URINE LEUK ESTERASE NEGATIVE (NEGATIVE); URINE NITRITE NEGATIVE (NEGATIVE); URINE PROTEIN NEGATIVE (NEGATIVE); URINE UROBILINOGEN NEGATIVE mg/dL (0.2-1.0)
[2017-11-10] MEDS ORDERED: risperiDONE 2 MG TABLET PO SCH (15:00)
--- NOTE | 2017-11-10 19:05 | CON.NEURO ---
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 (uncooperative and unable to communicate intelligibly.) Hepatobiliary: Yes: Cholecystitis - Past Surgical History Past Surgical History: Yes: Cholecystectomy - Alcohol/Substance Use Hx Alcohol Use: No - Smoking History Smoking history: Never smoked Have you smoked in the past 12 months: No - Social History ADL: Support Services History of Recent Travel: No Home Medications - Allergies Allergies/Adverse Reactions: Allergies Allergy/AdvReac Type Severity Reaction Status Date / Time No Known Allergies Allergy Verified 11/10/17 10:35 - Home Medications Home Medications: Ambulatory Orders Docusate Sodium [Colace -] 100 mg PO BID 01/22/16 Quetiapine Fumarate [Seroquel -] 50 mg PO BID 01/22/16 Mirtazapine 15 mg PO HS 11/15/16 Ranitidine [Zantac -] 150 mg PO DAILY 11/15/16 Physical Exam-Neuro Vital Signs: Vital Signs Temperature 97.8 F 11/10/17 08:38 Pulse Rate 87 11/10/17 14:44 Respiratory Rate 20 11/10/17 14:44 Blood Pressure 101/81 11/10/17 14:44 O2 Sat by Pulse Oximetry (%) 99 11/10/17 09:30 Labs: CBC, BMP 11/10/17 08:50 11/10/17 08:50 INR, PTT INR 1.00 (0.83-1.09) 11/10/17 08:50 Assessment/Plan CC New onset seizure HPI 72 year old female with advance dementia, living with family at home. I interview patient along with son and father. Patient was krystal to hospital for seizure activity, including tonic clonc activity. Recently her antipsychotic medication was increased as she continue to be agitation , by psychiatrist. Patient has normal ct head and she did have mri of brain and result is pending. She is sedated as she got sedation prior to mri of brain. PMH as above. SH,ROS,FH reviewed in chart - Allergies Allergies/Adverse Reactions: Allergies Allergy/AdvReac Type Severity Reaction Status Date / Time No Known Allergies Allergy Verified 11/10/17 10:35 Home Medications: Docusate Sodium [Colace -] 100 mg PO BID 01/22/16 Quetiapine Fumarate [Seroquel -] 50 mg PO BID 01/22/16 Mirtazapine 15 mg PO HS 11/15/16 Ranitidine [Zantac -] 150 mg PO DAILY 11/15/16 Neurological Examination At the time of examination she was quite sedated she opens her eye and goes back to sleep eomi, pupils reactive no face asymmetry no neck stiffness moving all extremity ct head is normal mri o fbrain is normal Assessment- New onset seizure, initial ct head is normal, currently patient is sedated but apparently she was back to her baseline before sedation. seizure could be due to Alzheimer disease or antipsychotic medication induced Plan-- agree with plan to start keppra 250 mg po bid, - eeg can be obtained, follow up on mri of brain results - spoke to family , given her agitation, family wishes to keep antipsychotic mediation for now, She can follow up with psychiatrist outpatient - once mri of brain is normal, she can be discharged home from neurological point of view, and follow up with me ( or if she has her own neurologist ) and psychiatrist as outpatient. - should not hold d/c if eeg not done Thanking you so much Ramon Ivey MD
[2017-11-10] MEDS: risperiDONE 0.5 MG TABLET (FP) PO SCH (22:30)
[2017-11-10] MEDS: MIRTAZAPINE 15 MG TABLET (FP) PO SCH (22:30)
[2017-11-10] MEDS ORDERED: MIRTAZAPINE 15 MG TABLET (FP) ONE (22:47)
[2017-11-11] MEDS: QUEtiapine FUMARATE 25 MG TABLET (FP) PO SCH ×2 (01:58→10:00)
[2017-11-11 07:21] LABS: BASO % 0.2 % (0-2.0); EOS % 0.4 % (0-4.5); HEMATOCRIT 35.9 % (32.4-45.2); HEMOGLOBIN 12.5 GM/dL (10.7-15.3); LYMPH % 15.4 % (8-40); MCHC 34.8 g/dl (32.0-36.0); MEAN CELL VOLUME 89.2 fl (80-96); MEAN PLT VOLUME 7.7 fl (7.5-11.1); MONO % 5.8 % (3.8-10.2); NEUT % 78.2 % (42.8-82.8); PLATELET COUNT 184 K/MM3 (134-434); RBC 4.02 M/mm3 (3.60-5.2); RDW 12.8 % (11.6-15.6); WHITE BLOOD COUNT 7.1 K/mm3 (4.0-10.0)
[2017-11-11 07:50] LABS: ANION GAP 5 (8-16); BLOOD UREA NITROGEN 9 mg/dL (7-18); CALCIUM 8.9 mg/dL (8.5-10.1); CHLORIDE 104 mmol/L (98-107); CO2 31 mmol/L (21-32); CREATININE 0.8 mg/dL (0.55-1.02); GLUCOSE,RANDOM 102 mg/dL (74-106); POTASSIUM 3.8 mmol/L (3.5-5.1); SODIUM 140 mmol/L (136-145)
[2017-11-11] MEDS ORDERED: PT OWN MED DRAWER 7, Y5N ONE ×2 (08:17→10:02)
--- NOTE | 2017-11-11 09:06 | EKG ---
Test Reason : Blood Pressure : / mmHG Vent. Rate : 118 BPM Atrial Rate : 118 BPM P-R Int : 148 ms QRS Dur : 074 ms QT Int : 328 ms P-R-T Axes : 060 053 076 degrees QTc Int : 459 ms SINUS TACHYCARDIA NONSPECIFIC T WAVE ABNORMALITY ABNORMAL ECG WHEN COMPARED WITH ECG OF 19-NOV-2016 09:15, NONSPECIFIC T WAVE ABNORMALITY HAS REPLACED INVERTED T WAVES IN ANTERIOR LEADS Confirmed by FADY RAMON, FERNANDO ([id number]) on 11/11/2017 9:06:26 AM Referred By: Confirmed By:FERNANDO SHRESTHA MD
--- NOTE | 2017-11-11 09:19 | PN ---
Progress Note (short form) - Note Progress Note: C New onset seizure HPI 72 year old female with advance dementia, living with family at home. I interview patient along with son and father. Patient was krystal to hospital for seizure activity, including tonic clonc activity. Recently her antipsychotic medication was increased as she continue to be agitation , by psychiatrist. Patient has normal ct head and she did have mri of brain and result is pending. She is sedated as she got sedation prior to mri of brain. Neurological Examination she is sleepy and wake up on stimulating she opens her eye and goes back to sleep eomi, pupils reactive no face asymmetry no neck stiffness moving all extremity ct head is normal mri o fbrain is normal Assessment- New onset seizure, initial ct head is normal, still recovering from sedation and post ictal confusion Plan-- agree with plan to start keppra 250 mg po bid, - eeg can be obtained, mri of brain is normal - continue antipsychotic medication for now , -she can be discharged from neuro point of view and follow up outpatient Thanking you so much Ramon Ivey MD
[2017-11-11] MEDS: RANITIDINE HCL 150 MG TABLET (FP) PO SCH (10:00)
[2017-11-11] MEDS: levETIRAcetam 250 MG TABLET (FP) PO SCH ×2 (10:00→21:34)
[2017-11-11] MEDS: risperiDONE 0.5 MG TABLET (FP) PO SCH (10:28)
--- NOTE | 2017-11-11 13:12 | PN ---
Physical Exam: SUBJECTIVE: Patient seen and examined at the bedside. Sleepy on exam. at bedside. History obtained by . OBJECTIVE: Vital Signs Period Temp Pulse Resp BP Sys/Dubon Pulse Ox Last 24 Hr 97.4 F-98.1 F 68-87 17-20 101-132/64-86 98-99 GENERAL: lethargic, slept for the entire exam. HEAD: Normal with no signs of trauma. EYES: PERRL, extraocular movements intact, sclera anicteric, conjunctiva clear. No ptosis. ENT: Ears normal, nares patent, oropharynx clear without exudates, moist mucous membranes. NECK: Trachea midline, full range of motion, supple. LUNGS: Breath sounds equal, clear to auscultation bilaterally, no wheezes HEART: Regular rate and rhythm ABDOMEN: Soft, nontender, nondistended, normoactive bowel sounds, no guarding, no rebound, no hepatosplenomegaly, no masses. EXTREMITIES: no edema. Laboratory Results - last 24 hr 11/10/17 11/11/17 11/11/17 13:53 06:10 06:10 WBC 7.1 RBC 4.02 Hgb 12.5 Hct 35.9 MCV 89.2 MCH 31.0 MCHC 34.8 RDW 12.8 Plt Count 184 MPV 7.7 Absolute Neuts (auto) 5.5 Neutrophils % 78.2 D Lymphocytes % 15.4 D Monocytes % 5.8 Eosinophils % 0.4 Basophils % 0.2 Nucleated RBC % 0 Sodium 140 Potassium 3.8 Chloride 104 Carbon Dioxide 31 Anion Gap 5 L BUN 9 Creatinine 0.8 Creat Clearance w eGFR > 60 Random Glucose 102 Calcium 8.9 Urine Color Straw Urine Appearance Clear Urine pH 8.0 D Ur Specific [place] 1.008 Urine Protein Negative Urine Glucose (UA) Negative Urine Ketones Negative Urine Blood Negative Urine Nitrite Negative Urine Bilirubin Negative Urine Urobilinogen Negative Ur Leukocyte Esterase Negative Active Medications Generic Name Dose Route Start Last Admin Trade Name Freq PRN Reason Stop Dose Admin Levetiracetam 250 mg 11/10/17 12:45 11/11/17 10:00 Keppra - PO 250 mg BID VALE Administration Mirtazapine 15 mg 11/10/17 22:00 11/10/17 22:30 Remeron - PO 15 mg HS VALE Administration Ranitidine HCl 150 mg 11/10/17 12:11 08/11/18 10:00 Zantac - PO 150 mg DAILY VALE Administration ASSESSMENT/PLAN: Patient is a 72 year old female with a significant past medical history of Alzheimer's dementia and cholecystectomy. She presented to the ED after a possible seizure event at home with tonic clonic movements. In the ED she was noted to be post ictal in the ED. Neuro: New onset seizure, unclear etiology patient has history of advanced alzheimers dementia. Started on Keppra 250mg BID. EEG outpatient. MRI of brain normal. Seen by neurology and cleared for discharge. Alzheimers dementia: On Risperdone BID, Remeron @ hs. Patient no longer on seroquel, therefore will d/c. Patient very sleepy this morning. ID: + blood culture bottle, likely contaminant Will follow and repeat blood cultures. Discussed with ID who will also monitor. No signs of infection on exam. fen monitor PO intake electrolytes wnl encourage PO intake prophy heparin Visit type - Emergency Visit Emergency Visit: Yes ED Registration Date: 11/10/17 Care time: The patient presented to the Emergency Department on the above date and was hospitalized for further evaluation of their emergent condition. - New Patient This patient is new to me today: Yes Date on this admission: 11/11/17 - Critical Care Critical Care patient: No - Discharge Referral Referred to [facility] Med P.C.: No
--- NOTE | 2017-11-11 15:00 | CON.ID ---
Consult Consult Specialty:: infectious diseases Referred by:: Jeimy Reason for Consultation:: positive blood cx - History of Present Illness History of Present Illness: This is a 72 year old female with pmhx Alzheimer's dementia (on mirtazapine and risperidone), s/p cholecystectomy 11/2016 presented to the ED s/p witnessed seizure. Pt helped pt to her feet, brush teeth, she was walking to living room and he saw her seizure with tonic clonic movements, pt fell but caught her and lowered her to the floor. Per ED note, episode lasted ~5 mins with rigors, urinary incontinence, and tongue biting. the above was the history of the patient on admission. 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 intelligibly.) Hepatobiliary: Yes: Cholecystitis - Past Surgical History Past Surgical History: Yes: Cholecystectomy - Alcohol/Substance Use Hx Alcohol Use: No - Smoking History Smoking history: Never smoked Have you smoked in the past 12 months: No - Social History ADL: Support Services History of Recent Travel: No Home Medications - Allergies Allergies/Adverse Reactions: Allergies Allergy/AdvReac Type Severity Reaction Status Date / Time No Known Allergies Allergy Verified 11/10/17 10:35 - Home Medications Home Medications: Ambulatory Orders Docusate Sodium [Colace -] 100 mg PO BID 01/22/16 Quetiapine Fumarate [Seroquel -] 50 mg PO BID 01/22/16 Mirtazapine 15 mg PO HS 11/15/16 Ranitidine [Zantac -] 150 mg PO DAILY 11/15/16 Review of Systems Unable to obtain ROS, reason: unable to obtain Physical Exam Vital Signs: Vital Signs Temperature 98 F 11/11/17 10:00 Pulse Rate 68 11/11/17 10:00 Respiratory Rate 11/11/17 10:00 Blood Pressure 128/64 11/11/17 10:00 O2 Sat by Pulse Oximetry (%) 98 11/11/17 04:01 Constitutional: Yes: Other (restless) Cardiovascular: Yes: Regular Rate and Rhythm Respiratory: Yes: Regular, CTA Bilaterally Gastrointestinal: Yes: Normal Bowel Sounds, Soft Musculoskeletal: Yes: WNL Extremities: Yes: WNL Neurological: Yes: Alert, Other Psychiatric: Yes: Other Labs: CBC, BMP 11/11/17 06:10 11/11/17 06:10 Imaging - Results Chest X-ray: Report Reviewed, Image Reviewed MRI: Report Reviewed, Image Reviewed Assessment/Plan Patient is a 72 year old female with a significant past medical history of Alzheimer's dementia and cholecystectomy. She presented to the ED after a possible seizure event at home with tonic clonic movements. In the ED she was noted to be post ictal in the ED. seizure positive blood cx plan repeat blood cx await for identification of organism will not start abx at this moment rest as per the team
[2017-11-11] MEDS: MIRTAZAPINE 15 MG TABLET (FP) PO SCH (21:34)
[2017-11-12 06:42] LABS: BASO % 0.4 % (0-2.0); EOS % 0.7 % (0-4.5); HEMATOCRIT 38.8 % (32.4-45.2); HEMOGLOBIN 13.3 GM/dL (10.7-15.3); LYMPH % 18.5 % (8-40); MCH 30.6 pg (25.7-33.7); MCHC 34.4 g/dl (32.0-36.0); MEAN CELL VOLUME 89.1 fl (80-96); MEAN PLT VOLUME 7.6 fl (7.5-11.1); MONO % 5.6 % (3.8-10.2); NEUT % 74.8 % (42.8-82.8); PLATELET COUNT 196 K/MM3 (134-434); RBC 4.36 M/mm3 (3.60-5.2); RDW 12.7 % (11.6-15.6)
[2017-11-12 06:43] LABS: ALBUMIN 3.4 g/dl (3.4-5.0); ANION GAP 6 (8-16); BLOOD UREA NITROGEN 9 mg/dL (7-18); CHLORIDE 106 mmol/L (98-107); CO2 31 mmol/L (21-32); CREATININE 0.9 mg/dL (0.55-1.02); GLUCOSE,RANDOM 104 mg/dL (74-106); POTASSIUM 4.3 mmol/L (3.5-5.1); SGOT/AST 36 U/L (15-37); SGPT/ALT 33 U/L (12-78); SODIUM 143 mmol/L (136-145)
[2017-11-12 06:44] LABS: ALK PHOS 78 U/L (45-117); BILIRUBIN,TOTAL 0.5 mg/dL (0.2-1.0); TOT PROT 6.6 g/dl (6.4-8.2)
[2017-11-12] MEDS: levETIRAcetam 250 MG TABLET (FP) PO SCH (09:07)
[2017-11-12] MEDS: RANITIDINE HCL 150 MG TABLET (FP) PO SCH (09:07)
--- NOTE | 2017-11-12 09:11 | PN ---
Progress Note, Physician - Current Medication List Current Medications: Active Medications Levetiracetam (Keppra -) 250 mg PO BID [facility] Last Admin: 11/12/17 09:07 Dose: 250 mg Mirtazapine (Remeron -) 15 mg PO HS [facility] Last Admin: 11/11/17 21:34 Dose: 15 mg Ranitidine HCl (Zantac -) 150 mg PO DAILY [facility] Last Admin: 11/12/17 09:07 Dose: 150 mg - Objective Vital Signs: Vital Signs Temperature 98.6 F 11/12/17 05:00 Pulse Rate 68 11/12/17 05:00 Respiratory Rate 18 11/12/17 05:00 Blood Pressure 110/63 11/12/17 05:00 O2 Sat by Pulse Oximetry (%) 98 11/11/17 21:00 Labs: CBC, BMP 11/12/17 05:30 11/12/17 05:30 INR, PTT INR 1.00 (0.83-1.09) 11/10/17 08:50
--- NOTE | 2017-11-12 15:20 | DS ---
Physical Exam: SUBJECTIVE: Patient seen and examined at the bedside. Feels well today, more alert. Ambulating to and from her room to the solarium. wants to take her home and followup with her PCP. He will call Dr. Ivey to schedule EEG. OBJECTIVE: discharge today, with neuro follow up Vital Signs Period Temp Pulse Resp BP Sys/Dubon Pulse Ox Last 24 Hr 97.5 F-98.6 F 68-96 18-20 105-130/63-85 98-98 PHYSICAL EXAM GENERAL: The patient is awake, alert, and fully oriented, in no acute distress. HEAD: Normal with no signs of trauma. EYES: PERRL, extraocular movements intact, sclera anicteric, conjunctiva clear. ENT: Ears normal, nares patent, oropharynx clear without exudates, moist mucous membranes. NECK: Trachea midline, full range of motion, supple. LUNGS: Breath sounds equal, clear to auscultation bilaterally, no wheezes, no crackles, no accessory muscle use. HEART: Regular rate and rhythm, S1, S2 without murmur, rub or gallop. ABDOMEN: Soft, nontender, nondistended, normoactive bowel sounds, no guarding, no rebound, no hepatosplenomegaly, no masses. EXTREMITIES: 2+ pulses, warm, well-perfused, no edema. NEUROLOGICAL: Cranial nerves II through XII grossly intact. Normal speech, gait not observed. PSYCH: Normal mood, normal affect. SKIN: Warm, dry, normal turgor, no rashes or lesions noted. LABS Laboratory Results - last 24 hr 11/12/17 11/12/17 05:30 05:30 WBC 7.0 RBC 4.36 Hgb 13.3 Hct 38.8 MCV 89.1 MCH 30.6 MCHC 34.4 RDW 12.7 Plt Count 196 MPV 7.6 Absolute Neuts (auto) 5.2 Neutrophils % 74.8 Lymphocytes % 18.5 D Monocytes % 5.6 Eosinophils % 0.7 Basophils % 0.4 Nucleated RBC % 0 Sodium 143 Potassium 4.3 Chloride 106 Carbon Dioxide 31 Anion Gap 6 L BUN 9 Creatinine 0.9 Creat Clearance w eGFR > 60 Random Glucose 104 Calcium 9.0 Total Bilirubin 0.5 AST 36 ALT 33 Alkaline Phosphatase 78 Total Protein 6.6 Albumin 3.4 HOSPITAL COURSE: Date of Admission:11/10/17 Date of Discharge: 11/12/17 Patient is a 72 year old female with a significant past medical history of Alzheimer's dementia and cholecystectomy. She presented to the ED after a possible seizure event at home with tonic clonic movements. In the ED she was noted to be post ictal in the ED. Neuro: New onset seizure, unclear etiology. no seizure activity since admission. patient has history of advanced alzheimers dementia. Started on Keppra 250mg BID. EEG outpatient. MRI of brain normal. Seen by neurology and cleared for discharge. Patient to follow up outpatient with Dr. Ivey for EEG. Alzheimers dementia: On Risperdone BID, Remeron @ . Patient no longer on seroquel, therefore will d/c. ID: + blood culture bottle, likely contaminant repeat blood cultures negative x 24 hours. will monitor. discharge home. Minutes to complete discharge: 60 Discharge Summary Reason For Visit: ALZHEIMERS DISEASE; NEW ONSET SEIZURE Current Active Problems New onset seizure (Acute) Alzheimer disease (Chronic) Condition: Guarded - Instructions Diet, Activity, Other Instructions: Mrs Peña: You were sent to [place] for a new onset seizure. We have started you on Keppra twice per day (antiseizure medication). Do not skip doses. Please follow up with the neurologist (Dr. Ivey) for an EEG. Please return to the ER if you have any new or worsening symptoms. [facility] [phone] Referrals: Ramon Ivey MD [Staff Physician] - Disposition: HOME - Home Medications Comprehensive Discharge Medication List: Ambulatory Orders Docusate Sodium [Colace -] 100 mg PO BID 01/22/16 Quetiapine Fumarate [Seroquel -] 50 mg PO BID 01/22/16 Mirtazapine 15 mg PO HS 11/15/16 Ranitidine [Zantac -] 150 mg PO DAILY 11/15/16 This patient is new to me today: No Emergency Visit: Yes ED Registration Date: 11/10/17 Care time: The patient presented to the Emergency Department on the above date and was hospitalized for further evaluation of their emergent condition. Critical Care patient: No - Discharge Referral Referred to [facility] Med P.C.: No
[2017-11-12 15:31] VITALS: BP 132/77; PULSE 64; TEMP 97.9
== END 2017-11-12 17:17 | disposition home or self-care (01) ==
LOC: JER 08:25 → JERBED 11:48 → J4W 11-11 01:48
PROVIDERS: ADMIT Internal Medicine; ATTEND Nurse Practitioner Family
PROC: 3E033NZ Introduction of Analgesics, Hypnotics, Sedatives into Peripheral Vein, Percutaneous Approach (ICD-10-PCS; principal; 2017-11-10)
PROC: 3E033GC Introduction of Other Therapeutic Substance into Peripheral Vein, Percutaneous Approach (ICD-10-PCS; 2017-11-10)
PROC: 3E0337Z Introduction of Electrolytic and Water Balance Substance into Peripheral Vein, Percutaneous Approach (ICD-10-PCS; 2017-11-10)
DX: G40.89 Other seizures (principal); G30.9 Alzheimer's disease, unspecified; F02.80 Dementia in other diseases classified elsewhere, unspecified severity, without behavioral disturbance, psychotic disturbance, mood disturbance, and anxiety
CPT/HCPCS: 36415; 70450-TC; 70552-TC; 71045-TC-FY; 80048; 80053; 81003; 82803; 83605; 84484; 85025; 85610; 85730; 87040; 87086; 87186; 93005; 93010; 96361; 96374; 96375; 96376; 99285-25; G0378; J0131

== ENCOUNTER 2018-10-08 06:03 | Emergency (ER) | payer MEDICARE, OTHER ==
[2018-10-08 06:15] VITALS: BMI 27.4
--- NOTE | 2018-10-08 07:23 | PDOC ---
History of Present Illness - General Chief Complaint: Seizure Stated Complaint: SEIZURE Time Seen by Provider: 10/08/18 07:09 History Source: Spouse () Exam Limitations: Dementia - History of Present Illness Initial Comments: 10/08/18 07:28 Pt is a 73yo F with PMH of Alzheimer's Dementia (AOx0 at baseline), Seizures BIBA to ED with for seizure activity. Per , he was changing pt's diaper and he went to use the restroom, when he came back he saw patient tensed up, not breathing and saliva at the mouth. He called EMS. Episode lasted about 3 minutes and resolved when EMS arrived. Last seizure was about 8 months ago and last neurology appointment was 3 months ago. states pt has also been constipated with last BM about 3 days ago and says stool was hard. He also noticed "something come out" but he pushed it back in. He states pt has not had a fever, has not vomited, no changes in medications, has otherwise been at baseline. PMD: Jaun PMH: see hpi Meds: remeron, risperdal, depakote 250mg Allergies: nkda 10/08/18 12:13 Past History - Past Medical History Allergies/Adverse Reactions: Allergies Allergy/AdvReac Type Severity Reaction Status Date / Time No Known Allergies Allergy Verified 10/08/18 06:15 Home Medications: Ambulatory Orders Mirtazapine 15 mg PO HS 11/15/16 Risperidone [Risperdal -] 0.5 mg PO BID tablet 11/12/17 Divalproex Sodium [Depakote] 250 mg PO DAILY 10/08/18 Divalproex [Depakote -] 500 mg PO BID #60 tablet.ec 10/08/18 COPD: No DVT: No Dementia: Yes HTN: No Hypercholesterolemia: No Psychiatric Problems: Yes (Alzheimer's dementia ) Seizures: No - Suicide/Smoking/Psychosocial Hx Smoking History: Never smoked Have you smoked in the past 12 months: No Information on smoking cessation initiated: No Hx Alcohol Use: No Drug/Substance Use Hx: No Substance Use Type: None Hx Substance Use Treatment: No Review of Systems - Review of Systems Able to Perform ROS?: No *Physical Exam - Vital Signs Last Vital Signs Temp Pulse Resp BP Pulse Ox 97.9 F 100 H 18 119/79 99 10/08/18 06:15 10/08/18 06:15 10/08/18 06:15 10/08/18 06:15 10/08/18 06:15 - Physical Exam General Appearance: Yes: Nourished, Appropriately Dressed, Moderate Distress ( moaning) HEENT: positive: EOMI, TASNEEM, Pharynx Normal Neck: positive: Trachea midline, Supple. negative: Lymphadenopathy (R), Lymphadenopathy (L) Respiratory/Chest: positive: Lungs Clear, Normal Breath Sounds. negative: Rhonchi, Wheezing Cardiovascular: positive: Regular Rhythm, S1, S2, Tachycardia. negative: Edema , JVD, Murmur Vascular Pulses: Dorsalis-Pedis (R): 2+, Doralis-Pedis (L): 2+ Gastrointestinal/Abdominal: positive: Normal Bowel Sounds, Other (firm, pt possibly tensing). negative: Distended, Guarding, Hernia Musculoskeletal: positive: Normal Inspection. negative: CVA Tenderness Extremity: positive: Normal Capillary Refill. negative: Swelling, Calf Tenderness Integumentary: positive: Normal Color, Dry, Warm. negative: Erythema, Pale, Cold Neurologic: positive: Other (tensed muscles, resistant to movement). negative: Fully Oriented ED Treatment Course - LABORATORY CBC & Chemistry Diagram: 10/08/18 08:20 10/08/18 08:20 Medical Decision Making - Medical Decision Making 10/08/18 07:44 Pt is a 73yo F with PMH of Alzheimer's Dementia (AOx0 at baseline), Seizures BIBA to ED with for seizure activity. Per , he was changing pt's diaper and he went to use the restroom, when he came back he saw patient tensed up, not breathing and saliva at the mouth. He called EMS. Episode lasted about 3 minutes and resolved when EMS arrived. Last seizure was about 8 months ago and last neurology appointment was 3 months ago. states pt has also been constipated with last BM about 3 days ago and says stool was hard. He also noticed "something come out" but he pushed it back in. He states pt has not had a fever, has not vomited, no changes in medications, has otherwise been at baseline. Vitals: tachycardia PE: AOx0, mumbling, no tenderness, PERRL, tensed muscles 07/08/19 12:09 benefit from outpt treatment per dr. retana *DC/Admit/Observation/Transfer Diagnosis at time of Disposition: Seizure - Discharge Dispostion Disposition: HOME Condition at time of disposition: Good Decision to Admit order: No - Prescriptions Prescriptions: Divalproex [Depakote -] 500 mg PO BID #60 tablet.ec - Referrals Referrals: Bambi Cervantes MD [Primary Care Provider] - Sammy Collins MD [Staff Physician] - - Patient Instructions Printed Discharge Instructions: DI for Seizure Disorder -- Adult Additional Instructions: Your was seen in the emergency room today for a seizure. The blood work is normal and the head CT scan does not show anything new. The neurologist recommends outpatient treatment. Please make an appointment with the neurologist this week. Let them know that she was seen in the emergency room for a seizure. The seizure medication was increased to 500mg twice a day. A new prescription was sent to the pharmacy. I also recommend seeing a GI doctor for the constipation. You can give MiraLax which is found over the counter to help. Come back to the emergency room if she has another seizure, she develops fever, she is not eating, or if any new concerning symptom develops. Thank you - Post Discharge Activity
[2018-10-08] MEDS ORDERED: ACETAMINOPHEN 1000 MG/100 ML VIAL (NON FORMULARY) IVPB ONE ×2 (07:33→09:59)
--- NOTE | 2018-10-08 07:35 | PDOC ---
Attending Attestation - Resident Resident Name: Trina Ballard - ED Attending Attestation I have performed the following: I have examined & evaluated the patient, The case was reviewed & discussed with the resident, I agree w/resident's findings & plan, Exceptions are as noted - HPI HPI: 10/08/18 07:36 73y F hx of Alzheimer, presents with complaint of seizure o keppra 250 BID, general tonic/clonic sz lasting approx 5-6 min, with post ictal period. baseline mental status is AOx0 and moans at bsaeline when in discomfort. per , no recent fever/chills, cough, n/v. notes possibly noticed some foul smelling urine. history provided from ROS limited due to dementia Exam: GENERAL: The patient is awake, with eyes open. Does not respond to directed verbal commands, Nontoxic - in no acute distress. HEAD: Normocephalic, atraumatic. EYES: sclera anicteric, conjunctiva clear. pupils 3mm and reactive to light ENT: Normal voice, Moist mucous membranes. NECK: Normal range of motion, supple LUNGS: Breath sounds equal, clear to auscultation bilaterally. No wheezes, no rhonchi, no rales. HEART: Regular rate and rhythm, normal S1 and S2 without murmur, rub or gallop. ABDOMEN: Soft, +occasional voluntary guarding, no rebound. EXTREMITIES: Normal range of motion, no edema, contracted extremities but with good muscle tone NEUROLOGICAL: No facial assymetry, PSYCH: Normal mood, normal affect. SKIN: Warm, Dry, normal turgor, ddx wide for her seizure - occult infection, metabolic dernagemnt labs, ekg, cxr, ua, ct head conrado lreassess - Physicial Exam PE: 10/09/18 13:54 see above - Medical Decision Making 10/08/18 10:49 labs reviewed, unremarkable UA pending 10/08/18 13:25 labs reviewed ua negative dw neurology reocmmend increasing her dose of keppra will dc with outpatient manatement Heart Score/ECG Review - ECG Impressions Comment:: 10/08/18 08:59 Twelve-lead EKG was performed and reviewed by me. There is normal sinus rhythm with a normal rate. rate of [address] wave changes
[2018-10-08 08:57] LABS: BASO % 0.2 % (0-2.0); EOS % 0.3 % (0-4.5); HEMOGLOBIN 13.7 GM/dL (10.7-15.3); LYMPH % 10.1 % (8-40); MCHC 33.5 g/dl (32.0-36.0); MEAN CELL VOLUME 89.7 fl (80-96); MEAN PLT VOLUME 8.3 fl (7.5-11.1); MONO % 3.7 % (3.8-10.2); NEUT % 85.7 % (42.8-82.8); PLATELET COUNT 209 K/MM3 (134-434); RBC 4.57 M/mm3 (3.60-5.2); RDW 13.3 % (11.6-15.6); WHITE BLOOD COUNT 9.4 K/mm3 (4.0-10.0)
[2018-10-08 08:58] LABS: ALBUMIN 3.2 g/dl (3.4-5.0); BILIRUBIN,TOTAL 0.3 mg/dL (0.2-1); BLOOD UREA NITROGEN 8.7 mg/dL (7-18); CALCIUM 9.1 mg/dL (8.5-10.1); CREATININE 0.7 mg/dL (0.55-1.3); MAGNESIUM 2.3 mg/dL (1.8-2.4); POTASSIUM 4.1 mmol/L (3.5-5.1); TOT PROT 6.4 g/dl (6.4-8.2)
[2018-10-08 10:50] LABS: URINE COLOR YELLOW
[2018-10-08 10:51] LABS: URINE APPEARANCE CLEAR; URINE BILIRUBIN NEGATIVE (NEGATIVE); URINE GLUCOSE (UA) NEGATIVE (NEGATIVE); URINE KETONE NEGATIVE (NEGATIVE); URINE LEUK ESTERASE TRACE (NEGATIVE); URINE NITRITE NEGATIVE (NEGATIVE); URINE PROTEIN NEGATIVE (NEGATIVE); URINE UROBILINOGEN 0.2 mg/dL (0.2-1.0)
--- NOTE | 2018-10-08 11:10 | EKG ---
Test Reason : Blood Pressure : / mmHG Vent. Rate : 093 BPM Atrial Rate : 093 BPM P-R Int : 118 ms QRS Dur : 070 ms QT Int : 332 ms P-R-T Axes : 056 029 032 degrees QTc Int : 412 ms POOR DATA QUALITY, INTERPRETATION MAY BE ADVERSELY AFFECTED NORMAL SINUS RHYTHM NONSPECIFIC ST AND T WAVE ABNORMALITY ABNORMAL ECG WHEN COMPARED WITH ECG OF 10-NOV-2017 08:48, COMPARED TO EKG NO SIGNIFICANT CHANGE IS FOUND Confirmed by PRINCESS ROSA MD ([id number]) on 10/08/2018 11:09:47 AM Referred By: Confirmed By:PRINCESS ROSA MD
[2018-10-08 11:24] LABS: EPI CELLS 5.1 /HPF (0-5/HPF); HYALINE CASTS 16 /lpf (0-8); URINE BACTERIA 7.5 /hpf (NEGATIVE); URINE RBC 1 /hpf (0-4); URINE WBC 12 /hpf (0-5)
[2018-10-08] MEDS ORDERED: levETIRAcetam 500 MG/5 ML INJECTION VIAL IVPB ONE ×2 (11:34→12:18)
[2018-10-08 12:34] VITALS: BP 124/76; PULSE 85; TEMP 98.1
--- NOTE | 2018-10-08 20:54 | CON.NEURO ---
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's, Dementia (uncooperative and unable to communicate intelligibly.) Hepatobiliary: Yes: Cholecystitis - Past Surgical History Past Surgical History: Yes: Cholecystectomy - Alcohol/Substance Use Hx Alcohol Use: No - Smoking History Smoking history: Never smoked Have you smoked in the past 12 months: No - Social History ADL: Support Services History of Recent Travel: No Home Medications - Allergies Allergies/Adverse Reactions: Allergies Allergy/AdvReac Type Severity Reaction Status Date / Time No Known Allergies Allergy Verified 10/08/18 06:15 - Home Medications Home Medications: Ambulatory Orders Mirtazapine 15 mg PO HS 11/15/16 Risperidone [Risperdal -] 0.5 mg PO BID tablet 11/12/17 Divalproex Sodium [Depakote] 250 mg PO DAILY 10/08/18 Divalproex [Depakote -] 500 mg PO BID #60 tablet.ec 10/08/18 Physical Exam-Neuro Vital Signs: Vital Signs Temperature 98.1 F 10/08/18 12:30 Pulse Rate 85 10/08/18 12:30 Respiratory Rate 16 10/08/18 12:30 Blood Pressure 124/76 10/08/18 12:30 O2 Sat by Pulse Oximetry (%) 96 10/08/18 12:30 Labs: CBC, BMP 10/08/18 08:20 10/08/18 08:20 Assessment/Plan cc Breakthrough seizure HPI 73 year old female history of Dementia ( Alzheimer Disease). Patient was last seen by me in 2018. Patient had ct head done and it was unremarkable. Patient she had episode of generlaized tonic clonic episode, when she was not breathing well. There was excessive salivation from mouth. There is no tongue bite or incontinence. Patient is on depakote 750 am and 500 pm and she is also on keppra 250 mg po bid . Painahidt has ct head and it was unremarkable, and as per she seems to be her baseline. She neer had mri of brain done . She is oriented x 0 at home and moans and not able to communicate. NKDA Ambulatory Orders Mirtazapine 15 mg PO HS 11/15/16 Risperidone [Risperdal -] 0.5 mg PO BID tablet 11/12/17 Divalproex Sodium [Depakote] 250 mg PO DAILY 10/08/18 Divalproex [Depakote -] 500 mg PO BID #60 tablet.ec 10/08/18 ROS,FH, SH reviewed in chart NEUROLOGICAL EXAMINATION Alert and opens eye, not able to follow command there is flexion contracutre in upper extremity and she is not able to extend her legs reflex are generalized diminished moaning to painful stimuli no face asymmetry, eomi, pupils reactive ct head is unremarkable Assessment/Plan Breakthrough seizure, no evidence of meningitis, status epilepticus, no change in ct head since last time. She never had mri ofbrain done Plan - increase keppra 500 mg po bid - mri of brain outpatient, as never been done before - eeg can also be obtained -Patient can be discharged home. Thanking you so much Ramon Ivey MD
[2018-10-09] MEDS ORDERED: levETIRAcetam 500 MG/5 ML INJECTION VIAL IVPB SCH (10:00)
== END 2018-10-08 13:42 | disposition home or self-care (01) ==
LOC: JER 06:03
PROC: 3E033NZ Introduction of Analgesics, Hypnotics, Sedatives into Peripheral Vein, Percutaneous Approach (ICD-10-PCS; principal; 2018-10-08)
PROC: 3E033GC Introduction of Other Therapeutic Substance into Peripheral Vein, Percutaneous Approach (ICD-10-PCS; 2018-10-08)
DX: G40.909 Epilepsy, unspecified, not intractable, without status epilepticus (principal); G30.8 Other Alzheimer's disease; F02.80 Dementia in other diseases classified elsewhere, unspecified severity, without behavioral disturbance, psychotic disturbance, mood disturbance, and anxiety
CPT/HCPCS: 36415; 70450-TC; 71045-TC-FY; 80053; 81003; 83735; 84484; 85025; 87077; 87086; 93005; 93010; 96374; 96375; 99284-25; J0131

== ENCOUNTER 2019-03-18 19:00 | Emergency (ER) | payer MEDICARE, OTHER ==
--- NOTE | 2019-03-18 19:28 | PDOC ---
History of Present Illness - General Stated Complaint: SEIZURE Time Seen by Provider: 03/18/19 19:22 History Source: Spouse () Exam Limitations: Dementia - History of Present Illness Initial Comments: 03/18/19 19:27 73y F with PMH of Alzheimer's Disease, Seizure disorder presenting to ED for a witnessed tonic clonic seizure with eye deviation that lasted approximately 4 minutes that started at 6pm today. Last seizure was in October of this year, patient was seen at this facility and evaluated by neurology. She is taking divalproex 500 mg BID, Risperdal and mirtazepine. Since her last seizure, divalproex was increased to BID instead of daily. states that patient has not been hospitalized for seizures and says he is unsure if she had an MRI recently. She last saw her neurologist (Dr. Christiana Beavers) 3 months ago. says that last night she was urinating more frequently and noticed dry cough. states she has otherwise been in her usual state of health, no fevers, diarrhea, vomiting, hospitalizations, antibiotic use. She is currently at baseline. PMD: Rory PMH: see hpi PSH: Meds: divalproex, risperdal, mirtazepine Allergies: nkda Past History - Past Medical History Allergies/Adverse Reactions: Allergies Allergy/AdvReac Type Severity Reaction Status Date / Time No Known Allergies Allergy Verified 03/18/19 19:31 Home Medications: Ambulatory Orders Mirtazapine 15 mg PO HS 11/15/16 Risperidone [Risperdal -] 0.5 mg PO BID tablet 11/12/17 Divalproex [Depakote -] 500 mg PO BID #60 tablet.ec 10/08/18 Cephalexin [Keflex *Suspension*] 10 ml PO BID 7 Days #1400 ml 03/19/19 COPD: No DVT: No Dementia: Yes HTN: No Hypercholesterolemia: No Psychiatric Problems: Yes (Alzheimer's dementia ) Seizures: No - Psycho Social/Smoking Cessation Hx Smoking History: Never smoked Have you smoked in the past 12 months: No Hx Alcohol Use: No Drug/Substance Use Hx: No Substance Use Type: None Hx Substance Use Treatment: No Review of Systems - Review of Systems Able to Perform ROS?: No *Physical Exam - Physical Exam General Appearance: Yes: Appropriately Dressed, Mild Distress, Thin HEENT: positive: EOMI, TASNEEM, Other (dry membranes) Neck: positive: Trachea midline, Supple. negative: Lymphadenopathy (R), Lymphadenopathy (L) Respiratory/Chest: positive: Lungs Clear, Normal Breath Sounds. negative: Crackles, Rales, Rhonchi, Stridor, Wheezing Cardiovascular: positive: Regular Rhythm, Regular Rate, S1, S2. negative: Edema , JVD, Murmur Vascular Pulses: Dorsalis-Pedis (R): 2+, Doralis-Pedis (L): 2+ Gastrointestinal/Abdominal: positive: Normal Bowel Sounds, Soft. negative: Tender Musculoskeletal: negative: CVA Tenderness Extremity: positive: Normal Capillary Refill. negative: Swelling, Calf Tenderness, Erythema Integumentary: positive: Normal Color, Dry, Warm, Other (no bed sores) Neurologic: positive: Other (contracted upper extremities, moving lower extremities). negative: Fully Oriented ED Treatment Course - LABORATORY CBC & Chemistry Diagram: 03/18/19 20:30 03/18/19 20:30 - RADIOLOGY Radiology Studies Ordered: Category Date Time Status HEAD CT WITHOUT CONTRAST [CT] Stat CT Scan 03/18/19 19:25 Ordered CHEST X-RAY PORTABLE* [RAD] Stat Radiology 03/18/19 19:25 Ordered Medical Decision Making - Medical Decision Making 03/18/19 20:49 73y F with PMH of seizure disorder, alzheimer's disease presenting to ED with breakthrough seizure. vitals: tachycardia at 101, afebrile, saturating well on RA PE: contracted upper extremities, moaning (baseline), moving lower extremities, skin intact, normal lung sounds, heart sounds, non tender abdomen. ddx includes but not limited to mass/malignancy, breakthrough seizure, uri, pna , uti, electrolyte abnormality, medication non compliance. will obtain cbc, cmp, trop, mg, ua, ucx, keppra and valproate levels, flu swab cxr, ct head iv tylenol for pain 03/19/19 07:19 CT head does not show any acute pathology. seizure free while in ED 5 hours. UA positive for infection, otherwisen normal labs. valprate therapeutic will give rx for keflex. safe for dc home. has pmd appointment tomorrow. advised to f/u with neurologist. Discharge - Discharge Information Problems reviewed: Yes Clinical Impression/Diagnosis: Seizure UTI (urinary tract infection) Qualifiers: Urinary tract infection type: site unspecified Hematuria presence: without hematuria Qualified Code(s): N39.0 - Urinary tract infection, site not specified Condition: Good Disposition: HOME - Admission No - Additional Discharge Information Prescriptions: Cephalexin [Keflex *Suspension*] 10 ml PO BID 7 Days #1400 ml - Follow up/Referral - Patient Discharge Instructions Patient Printed Discharge Instructions: DI for Urinary Tract Infection (UTI) Additional Instructions: Your was seen in the emergency room today for a seizure. The blood work is normal. The urine is infected, she has a uti. This could have caused her seizure. A prescription for a liquid antibiotic (Keflex) was sent to the pharmacy. Take 10mL twice a day for 7 days. Please make sure you are able to make it to the appointment tomorrow and let the doctor know she was in the emergency room today for a break through seizure and a uti. Keep her well hydrated. Please come back to the emergency room for another seizure, she develops fever, is not eating, or if any new or concerning symptom develops. Thank you - Post Discharge Activity
[2019-03-18 19:31] VITALS: BMI 24.8
[2019-03-18] MEDS ORDERED: ACETAMINOPHEN 1000 MG/100 ML VIAL (NON FORMULARY) IVPB ONE (19:40)
[2019-03-18] MEDS ORDERED: ACETAMINOPHEN INJECTION 100 ML IVPB ONE (19:59)
--- NOTE | 2019-03-18 20:05 | PDOC ---
Attending Attestation - Resident Resident Name: Trina Ballard - ED Attending Attestation I have performed the following: I have examined & evaluated the patient, The case was reviewed & discussed with the resident, I agree w/resident's findings & plan - HPI HPI: 03/19/19 00:12 see resident hpi - Physicial Exam PE: 03/19/19 00:12 agree with resident exam - Medical Decision Making 03/19/19 00:16 73-year-old female with history of seizure disorder status post seizure witnessed by family Labs reveal a urinary tract infection Patient's valproic acid level is therapeutic Keppra level pending as send out CT scan of the brain showed no acute abnormalities She has not had a seizure in the emergency department and is at baseline alert Patient's at the bedside and is refusing ambulance transport stating he can get the patient home on his own. Will DC on Keflex
[2019-03-18 20:51] LABS: BASO % 0.3 % (0-2.0); EOS % 0.5 % (0-4.5); HEMATOCRIT 42.2 % (32.4-45.2); HEMOGLOBIN 14.3 GM/dL (10.7-15.3); LYMPH % 19.4 % (8-40); MCH 31.6 pg (25.7-33.7); MEAN PLT VOLUME 9.7 fl (7.5-11.1); MONO % 4.5 % (3.8-10.2); NEUT % 75.3 % (42.8-82.8); PLATELET COUNT 150 K/MM3 (134-434); RBC 4.54 M/mm3 (3.60-5.2); RDW 13.2 % (11.6-15.6); WHITE BLOOD COUNT 7.5 K/mm3 (4.0-10.0)
[2019-03-18 21:32] LABS: ALBUMIN 3.3 g/dl (3.4-5.0); ALK PHOS 80 U/L (45-117); ANION GAP 8 MMOL/L (8-16); BILIRUBIN,TOTAL 0.3 mg/dL (0.2-1); BLOOD UREA NITROGEN 13.8 mg/dL (7-18); CALCIUM 9.2 mg/dL (8.5-10.1); CHLORIDE 108 mmol/L (98-107); CO2 27 mmol/L (21-32); CREATININE 0.8 mg/dL (0.55-1.3); GLUCOSE,RANDOM 128 mg/dL (74-106); MAGNESIUM 2.1 mg/dL (1.8-2.4); POTASSIUM 4.4 mmol/L (3.5-5.1); SGOT/AST 23 U/L (15-37); SGPT/ALT 17 U/L (13-61); SODIUM 142 mmol/L (136-145); TOT PROT 6.7 g/dl (6.4-8.2)
[2019-03-18 21:34] VITALS: BP 133/80; PULSE 96; TEMP 99.1
[2019-03-18 21:41] LABS: EPI CELLS 2.3 /HPF (0-5/HPF); HYALINE CASTS 7 /lpf (0-8); URINE APPEARANCE CLEAR; URINE BACTERIA 1695.2 /hpf (NEGATIVE); URINE BILIRUBIN NEGATIVE (NEGATIVE); URINE COLOR YELLOW; URINE GLUCOSE (UA) NEGATIVE (NEGATIVE); URINE KETONE TRACE (NEGATIVE); URINE LEUK ESTERASE NEGATIVE (NEGATIVE); URINE NITRITE POSITIVE (NEGATIVE); URINE PROTEIN TRACE (NEGATIVE); URINE RBC 1 /hpf (0-4); URINE UROBILINOGEN 0.2 mg/dL (0.2-1.0)
[2019-03-18 22:41] LABS: URINE WBC 11.3 /hpf (0-5)
--- NOTE | 2019-03-19 09:42 | EKG ---
Test Reason : Blood Pressure : / mmHG Vent. Rate : 090 BPM Atrial Rate : 090 BPM P-R Int : 116 ms QRS Dur : 064 ms QT Int : 346 ms P-R-T Axes : 042 033 052 degrees QTc Int : 423 ms POOR DATA QUALITY, INTERPRETATION MAY BE ADVERSELY AFFECTED NORMAL SINUS RHYTHM NONSPECIFIC ST ABNORMALITY ABNORMAL ECG WHEN COMPARED WITH ECG OF 08-OCT-2018 07:46, NO SIGNIFICANT CHANGE WAS FOUND Confirmed by MD Panfilo, Arthur ([id number]) on 03/19/2019 9:42:28 AM Referred By: Confirmed By:Arthur Whittaker MD
== END 2019-03-19 01:28 | disposition home or self-care (01) ==
LOC: JER 19:00
PROC: 3E033NZ Introduction of Analgesics, Hypnotics, Sedatives into Peripheral Vein, Percutaneous Approach (ICD-10-PCS; principal; 2019-03-18)
DX: R56.9 Unspecified convulsions (principal); G30.9 Alzheimer's disease, unspecified; F02.80 Dementia in other diseases classified elsewhere, unspecified severity, without behavioral disturbance, psychotic disturbance, mood disturbance, and anxiety; N39.0 Urinary tract infection, site not specified
CPT/HCPCS: 36415; 70450-TC; 71045-TC-FY; 80053; 80164; 80177; 81003; 83735; 84484; 85025; 87086; 87186; 87804; 93005; 93010; 99283-25; J0131

== ENCOUNTER 2019-11-01 19:37 | Inpatient (IN) | payer MEDICARE, OTHER ==
--- NOTE | 2019-11-01 19:58 | PDOC ---
History of Present Illness - General Stated Complaint: DIFFICULTY BREATHING Time Seen by Provider: 11/01/19 19:58 History Source: Significant Other () Exam Limitations: Dementia - History of Present Illness Initial Comments: 11/01/19 20:25 HPI: This is a 74 y/o female with a PMH of alzheimers with dementia at baseline, non- verbal for 3 years, non-ambulatory for 2 years, seizures, and recent covid infection in July presenting to the ED by EMS due to hypoxia. Per her , he walked in on the aide feeding her oatmeal and said she was choking. He placed her on her stomach and she expelled some of the oatmeal. He noticed that she was breathing rapidly, and making gurgling noises so he called EMS. EMS found her to be hypoxic in the 80[address] on [address], and placed her on a non-rebreather. Additionally the reports that she has seemed to be short of breath for the past three days, with a new cough and sputum production. He also reports that she had subjective fever/chills, increased restlessness. He denies increased urination, dysuria, constipation, diarrhea, nausea/vomiting. no ROS because patient is non-verbal PCP: Dr. Jaida Valadez PMH: Alzeimers, Seizures PSx: Gallbladder, Meds: See nurses note Allergies: KNDA PE: GENERAL: Patient is awake, non-verbal, responsive to stimuli. HEAD: No signs of trauma EYES: PERRL, EOMI NECK: Normal ROM, supple, no lymphadenopathy, JVD, or masses LUNGS: Crackles in RLL. HEART: Tachycardic, regular rhythm, no murmurs, rubs or gallops ABDOMEN: Soft, nontender, normoactive bowel sounds. No guarding, no rebound. No masses EXTREMITIES: Upper and lower extremities contracted at baseline. NEUROLOGICAL: Non-verbal and non-ambulatory at baseline. SKIN: Warm, Dry, normal turgor, no rashes or lesions noted. MDM: This is a 74 y/o female baseline non-verbal presenting to the ED by EMS hypoxic and tachycardic. Aspiration pneumonia vs bacterial pneumonia vs sepsis vs PE - In ambulance saturating in the 80's - Patient gurgling, saturating in 90's on high flow, improvement with suctioning POCUS - Heart squeeze ok. No R. ventricular dilation. Pericardial effusion vs fat pad. Air bronchograms in RLL. IVC fully collapsable. - Pt fluid down, will give 2L - Possible RLL pneumonia, febrile at 101.1, will start broad spec abx - Tachcardic in 130's, will give acetaminophen - CBC, CMP, Blood cultures -Lactic acid 3.2 Vital Signs Temp Pulse Resp BP Pulse Ox 101.1 F H 125 H 36 H 114/78 95 11/01/19 20:00 11/01/19 20:35 11/01/19 20:35 11/01/19 20:35 11/01/19 20:35 BP stable CBC WBC 8.5 K/mm3 (4.0-10.0) 11/01/19 19:50 RBC 5.04 M/mm3 (3.60-5.2) 11/01/19 19:50 Hgb 15.4 GM/dL (10.7-15.3) H 11/01/19 19:50 Hct 46.5 % (32.4-45.2) H D 11/01/19 19:50 MCV 92.3 fl (80-96) 11/01/19 19:50 MCH 30.6 pg (25.7-33.7) 11/01/19 19:50 MCHC 33.2 g/dl (32.0-36.0) 11/01/19 19:50 RDW 13.1 % (11.6-15.6) 11/01/19 19:50 Plt Count 204 K/MM3 (134-434) D 11/01/19 19:50 MPV 8.7 fl (7.5-11.1) D 11/01/19 19:50 Absolute Neuts (auto) 7.0 K/mm3 (1.5-8.0) 11/01/19 19:50 Neutrophils % 82.7 % (42.8-82.8) 11/01/19 19:50 Lymphocytes % 10.9 % (8-40) D 11/01/19 19:50 Monocytes % 5.9 % (3.8-10.2) 11/01/19 19:50 Eosinophils % 0.0 % (0-4.5) 11/01/19 19:50 Basophils % 0.5 % (0-2.0) D 11/01/19 19:50 Nucleated RBC % 0 % (0-0) 11/01/19 19:50 No leukocytosis, no anemia CMP Sodium 139 mmol/L (136-145) 11/01/19 19:50 Potassium 4.4 mmol/L (3.5-5.1) 11/01/19 19:50 Chloride 103 mmol/L (98-107) 11/01/19 19:50 Carbon Dioxide 23 mmol/L (21-32) 11/01/19 19:50 Anion Gap 12 MMOL/L (8-16) 11/01/19 19:50 BUN 17.5 mg/dL (7-18) 11/01/19 19:50 Creatinine 1.0 mg/dL (0.55-1.3) 11/01/19 19:50 Est GFR (CKD-EPI)AfAm 64.27 11/01/19 19:50 Est GFR (CKD-EPI)NonAf 55.45 11/01/19 19:50 Random Glucose 203 mg/dL (74-106) H 11/01/19 19:50 Lactic Acid 3.2 mmol/L (0.4-2.0) H* 11/01/19 19:50 Calcium 9.6 mg/dL (8.5-10.1) 11/01/19 19:50 Ferritin 224.8 ng/ml (8-388) 11/01/19 19:50 Total Bilirubin 0.3 mg/dL (0.2-1) 11/01/19 19:50 Direct Bilirubin 0.1 mg/dL (0.0-0.2) 11/01/19 19:50 AST 17 U/L (15-37) 11/01/19 19:50 ALT 11 U/L (13-61) L 11/01/19 19:50 Alkaline Phosphatase 80 U/L (45-117) 11/01/19 19:50 LD Total 338 U/L (84-246) H 11/01/19 19:50 Creatine Kinase 78 U/L (26-192) 11/01/19 19:50 Troponin I 0.04 ng/ml (0.00-0.05) 11/01/19 19:50 C-Reactive Protein 1.3 MG/DL (0.00-0.3) H 11/01/19 19:50 Total Protein 7.0 g/dl (6.4-8.2) 11/01/19 19:50 Albumin 3.1 g/dl (3.4-5.0) L 11/01/19 19:50 Lactic acid elevated at 3.2 CXR with RLL pneumonia and possible LLL infiltrates. 11/01/19 21:27 Symphony microblogged 11/01/19 22:07 - ICU consult, will admit to service Past History - Medical History Allergies/Adverse Reactions: Allergies Allergy/AdvReac Type Severity Reaction Status Date / Time No Known Allergies Allergy Verified 03/18/19 19:31 Home Medications: Ambulatory Orders Mirtazapine 15 mg PO HS 11/15/16 Divalproex [Depakote -] 500 mg PO BID #60 tablet.ec 10/08/18 Risperidone [Risperdal -] 0.25 mg PO DAILY 11/01/19 Risperidone [Risperdal -] 0.5 mg PO HS 11/01/19 COPD: No DVT: No Dementia: Yes HTN: No Hypercholesterolemia: No Psychiatric Problems: Yes (Alzheimer's dementia ) Seizures: No - Psycho-Social/Smoking History Smoking History: Never smoked Have you smoked in the past 12 months: No Heart Score/ECG Review - History History: Slightly suspicious - Electrocardiogram EKG: Non specific repolarization disturbance - Age Age: >/= 65 - Risk Factors Based on the list above the patient has:: No risk factors known - Troponin Troponin: </= normal limit - Score Heart Score - Total: 3 - ECG Intrepretation Comment:: 11/02/19 04:11 EKG with sinus tachycardia, Vent rate 147bpm, MS interval 140ms, QRS duration 64ms, QT/QTc 210/328 ED Treatment Course - LABORATORY CBC & Chemistry Diagram: 11/01/19 19:50 11/01/19 19:50 Discharge - Discharge Information Problems reviewed: Yes Clinical Impression/Diagnosis: Hypoxia Sepsis Qualifiers: Sepsis type: sepsis due to unspecified organism Sepsis acute organ dysfunction status: unspecified Qualified Code(s): A41.9 - Sepsis, unspecified organism Pneumonia Qualifiers: Pneumonia type: due to unspecified organism Condition: Poor - Admission Yes - Follow up/Referral - Patient Discharge Instructions - Post Discharge Activity
[2019-11-01] MEDS ORDERED: LACTATED RINGERS SOLUTION 1000 ML INFUS.BAG IV ONE ×3 (20:02→23:03)
[2019-11-01 20:03] LABS: VENOUS BASE EXCESS -0.3 mmol/L (-2-2); VENOUS O2 SATURATION 53.8 % (70-80); VENOUS PCO2 43.2 mmHg (38-52); VENOUS PH 7.38 (7.310-7.410)
[2019-11-01] MEDS ORDERED: ACETAMINOPHEN 1000 MG/100 ML VIAL (NON FORMULARY) IVPB ONE (20:05)
[2019-11-01] MEDS ORDERED: VANCOMYCIN HCL 1,500 MG in DEXTROSE 5%-WATER - 500 ML IVPB ONE (20:05)
[2019-11-01] MEDS ORDERED: PIPERACILLIN/TAZOB 3.375 GM 3.375 GM in DEXTROSE 5%-WATER - 50 ML IVPB ONE (20:05)
[2019-11-01 20:06] LABS: BASO % 0.5 % (0-2.0); HEMATOCRIT 46.5 % (32.4-45.2); HEMOGLOBIN 15.4 GM/dL (10.7-15.3); LYMPH % 10.9 % (8-40); MCH 30.6 pg (25.7-33.7); MCHC 33.2 g/dl (32.0-36.0); MEAN CELL VOLUME 92.3 fl (80-96); MEAN PLT VOLUME 8.7 fl (7.5-11.1); MONO % 5.9 % (3.8-10.2); NEUT % 82.7 % (42.8-82.8); PLATELET COUNT 204 K/MM3 (134-434); RBC 5.04 M/mm3 (3.60-5.2); RDW 13.1 % (11.6-15.6); WHITE BLOOD COUNT 8.5 K/mm3 (4.0-10.0)
[2019-11-01] MEDS ORDERED: VANCOMYCIN 500 MG VIAL (RESTRICTED TO ID ONLY) ONE (20:13)
[2019-11-01] MEDS ORDERED: ACETAMINOPHEN INJECTION 100 ML IVPB ONE (20:14)
[2019-11-01] MEDS ORDERED: PIPERACILLIN/TAZOB 3.375 GM 3.375 GM/50 ML BAG IVPB ONE (20:14)
[2019-11-01] MEDS ORDERED: VANCOMYCIN 1 GRAM (PRE-DOCKED) 1,000 MG/250 ML BAG IVPB ONE (20:14)
[2019-11-01 20:27] LABS: BILIRUBIN,DIRECT 0.1 mg/dL (0.0-0.2)
[2019-11-01 20:30] LABS: ALBUMIN 3.1 g/dl (3.4-5.0); BILIRUBIN,TOTAL 0.3 mg/dL (0.2-1); BLOOD UREA NITROGEN 17.5 mg/dL (7-18); CALCIUM 9.6 mg/dL (8.5-10.1); POTASSIUM 4.4 mmol/L (3.5-5.1)
[2019-11-01 20:34] LABS: INR 1.1 (0.83-1.09)
[2019-11-01 20:37] LABS: ACTIVATED PTT 27.4 SECONDS (25.2-36.5)
--- NOTE | 2019-11-01 20:38 | PDOC ---
Documentation entered by Adonay Mayberry SCRIBE, acting as scribe for Raina Neves MD. Raina Neves MD: This documentation has been prepared by the Jefe avina Xhesika, SCRIBE, under my direction and personally reviewed by me in its entirety. I confirm that the documentation accurately reflects all work, treatment, procedures, and medical decision making performed by me. Attending Attestation - Resident Resident Name: Shanell Milian - ED Attending Attestation I have performed the following: I have examined & evaluated the patient, The case was reviewed & discussed with the resident, I agree w/resident's findings & plan, Exceptions are as noted - HPI HPI: 11/01/19 19:55 The patient is a 74 year old female with a past medical history of Alzheimers (A&Ox0) and seizure disorder who presents to the ED BIBA for difficulty breathing. Patient is bed bound, nonverbal at baseline and is unable to contribute to further history. Per the patient was COVID+ in July 2019. notes the patient is DNR/DNI. states she has had rapid decline since april, has been nonverbal for 3 years, nonambulatory eating less since april. at this point rarely gets out of bed. is at home with him has home health aid during the day. today when he came home from work, she was with the day time home health aid, and was choking on her oatmeal. he heard gurgling noises, so he lifted her out of bed, and put her on his bed rolled him over to help her spit up the food she was choking on. then called ambulance, on EMS arrival, pt oxygen saturation was in the 80s on RA. no n/v/d/ no f/c recently. but has been eating much less overall since her covid infection in july. Allergies: NKDA PCP: Dr. Arthur Webber 11/01/19 20:25 - Physicial Exam PE: 11/01/19 20:32 eyes open, pt moaning, gurgling respirations, lungs with crackles at bases. tachypneic. oxygen saturation 93% on NRB heart reg tachycardia. no mrg. abd soft nt nd ext wwp. contracted, thin. nuero eyes open, moaning. does not follow commands. skin warm no rash. - Medical Decision Making 11/01/19 20:34 74 yo F with h/o severe alzheimers, nonverbal, bed bound here with aspiration, now hypoxia. differential sespsis, aspiration, pneumonia, pe, dehydration, renal failure, electrolyte abnormality, possible seizure possible. plan rectal temp 101, given tylenol will cover with broad spectrum antiobiotics. d/w regarding advanced directive. would like pt to be DNR/ DNI. focused ED us performed, pt with tachycardia on TTE, no pericardial effusion, fat pad noted. no rv strain. overal mikld decreased contractility, IVC completely collapsing. pt likley hypovolemic. lungs with a line predominant anteriorly air bronchograms right base noted, likley pneumonia pt oxygen saturation improved with suctioning and oxygen 96% NRB noriega placed, noted cloudy urine, uti likley. lactic acid 3.4 Heart Score/ECG Review #1 General ECG Interpretation: Sinus Rhythm, Normal Intervals, No acute ischemic changes Compared to previous ECG there are: Other (sinus tachycardia. [address] elevation or depression.s) Discharge - Discharge Information Problems reviewed: Yes Clinical Impression/Diagnosis: Hypoxia Sepsis Qualifiers: Sepsis type: sepsis due to unspecified organism Sepsis acute organ dysfunction status: unspecified Qualified Code(s): A41.9 - Sepsis, unspecified organism Pneumonia Qualifiers: Pneumonia type: due to unspecified organism Condition: Improved Disposition: VNS/HOME HEALTH CARE - Follow up/Referral - Patient Discharge Instructions - Post Discharge Activity
[2019-11-01 21:37] LABS: EPI CELLS 35 /uL (0-25.1); HYALINE CASTS 12 /uL (0-3.1); URINE APPEARANCE CLEAR; URINE BACTERIA 11 /uL (0-1359); URINE BILIRUBIN NEGATIVE (NEGATIVE); URINE COLOR YELLOW; URINE GLUCOSE (UA) NEGATIVE (NEGATIVE); URINE KETONE 1+ (NEGATIVE); URINE LEUK ESTERASE 1+ (NEGATIVE); URINE NITRITE NEGATIVE (NEGATIVE); URINE PROTEIN 3+ (NEGATIVE); URINE WBC 115 /uL (0-25.8)
--- NOTE | 2019-11-01 22:04 | PN ---
Teaching Attending Note Name of Resident: Marlys De La Garza ATTENDING PHYSICIAN STATEMENT I saw and evaluated the patient. I reviewed the resident's note and discussed the case with the resident. I agree with the resident's findings and plan as documented. SUBJECTIVE: OBJECTIVE: HEENT: No Jaundice, eye redness or discharge, PERRLA, EOMI. Normocephalic, atraumatic. External ears are normal and hearing is grossly intact. No nasal discharge. Neck: Supple, nontender. No palpable adenopathy or thyromegaly. No JVD Chest: Good effort. Clear to auscultation and percussion. Heart: Regular. No S3, rub or murmur Abdomen: Not distended, soft, nontender and no HSM. No rebound or guarding. Normal bowel sounds. Ext: Peripheral pulses intact. No leg edema. Skin: Warm and dry. No petechiae, rash or ecchymosis. Neuro: Alert. Oriented x3. CN 2-12 grossly intact. Sensation grossly intact in all four extremities and DTR are symmetric. Psych: Appropriate mood and affect. Good insight. Denies alcohol, tobacco or illicit drug use. No sick contacts or recent travels. Family history is unremarkable. Patient has a family history of . Acute hypoxic respiratory failure/Rule out COVID-19 infection - Oxygen saturation was % on room air. CT chest shows bilateral ground glass infiltrates. CXR shows cardiomegaly without evidence of acute lung disease bilateral interstitial and airspace opacities/pneumonic infiltrates. Viral testing for COVID-19 ordered and patient placed on airborne, droplet and contact isolation. Started on supplemental oxygen via nasal cannula/non- rebreather mask. ER staff prescribed Tylenol, Mylanta, Pepcid, Zofran, Aspirin, IV LR and IV NS for the patient. EKG shows NSR at /minute and QTc with no significant ST-T wave changes. Initial troponin is negative. Will admit to telemetry, trend troponin, get ECHO, TSH, carotid doppler, fasting lipids, brain MRI, do speech and swallow evaluation, neurochecks and implement fall/aspiration/seizure precautions. Consult Cardiology/PT/Neurology/Pulmonary. Will treat with escalating doses of IV Lasix to achieve adequate diuresis, restrict dietary salt intake, monitor renal function, monitor and replete electrolytes, get daily weight and consult Cardiology. Will treat patient with Zinc sulfate, Pepcid, Vitamin C, IV Rocephin and Azithromycin, Tylenol PRN and consult ID. Hypokalemia and hyponatremia likely partly due to hyperglycemia. Will check serum magnesium, give IV and PO KCL, limit free water intake and correct hyperglycemia. Will continue comprehensive care for all of patients comorbid conditions. Hypoalbuminemia - Possibly due to combined effects of malnutrition and inflammation associated with comorbid conditions. Will ensure adequate dietary protein intake and also consult thermodynamics engineer. Urinalysis pending. DM For now, we will hold the home diabetes drugs and implement sliding scale insulin regimen. Provide comprehensive diabetes care with patient teaching and counseling about the importance of adherence to prescribed diabetes regimen, euglycemia, eye care and foot care. Tobacco Use Counseled on risks associated with tobacco use. We will provide patient all the necessary assistance to facilitate smoking cessation and prescribe Nicotine patch. CKD/DAYNA Will get kidney sonogram, hydrate gently, monitor urine output and consult Nephrology. Avoid nephrotoxic agents such as NSAIDS, aminoglycosides, contrast dyes and certain Alternative medicine products. Anemia -Do basic anemia work up including serial stool guaiacs, reticulocyte count and iron studies. Would benefit from Procrit therapy once iron replete. Polypharmacy - Will liaise with patient's PCP to discontinue medications that are not absolutely essential. Obesity Counseled on the risks associated with obesity. Will provide patient all the necessary assistance, counseling and positive reinforcement to facilitate weight loss. Consult thermodynamics engineer. Alcohol abuse - Implement [facility] alcohol withdrawal protocol and do neurochecks. Implement seizure, fall and aspiration precautions. Treat with IV Banana bag, thiamine and folic acid. Monitor and replete electrolytes (Ca ,Mg,K,P). Counseled patient about abstaining from alcohol. Will consult accounting software specialist and refer to alcohol detox upon discharge. Hypertension Will restart suitable outpatient antihypertensive drugs when clinically appropriate. Subsequently, will revise regimen to ensure [id number] excellent BP control. Patient counseled on the injurious effects of uncontrolled hypertension. Nonpharmacologic measures to control hypertension like weight loss, salt restriction and exercise stressed. Importance of adherence to treatment regimen and attainment of normotension emphasized. DVT prophylaxis - Lovenox 40 mg SQ q 24 hours. Heparin 5000u sq tid. Advance directives - Full code Patient denies chest pain, shortness of breath, abdominal pain, headache, palpitations, dizziness, fever, chills, nausea, vomiting, diarrhea, constipation, dysuria, frequency, urgency, melena, hematochezia or hematuria. CXR shows cardiomegaly with no evidence of acute lung disease. will treat with IV Levofloxacin, IV NS, Flomax, get PT/INR, strain her urine, keep her NPO, consult Urology and refer to Nephrology for stone disease risk factor evaluation. ASSESSMENT AND PLAN:
[2019-11-01] MEDS ORDERED: SODIUM CHLORIDE 500 ML IV STA (22:16)
[2019-11-01] MEDS ORDERED: ACETAMINOPHEN 1000 MG/100 ML VIAL (NON FORMULARY) IVPB PRN (22:17)
[2019-11-01 22:22] LABS: URINE RBC 638.1 /uL (0-23.9)
--- NOTE | 2019-11-01 22:22 | CONSULT ---
Consultation: REQUESTING PROVIDER: CONSULT REQUEST: ICU monitoring. HISTORY OF PRESENT ILLNESS: 74 y/o female with PMH of Alzheimers (non-verbal, bedbound at baseline), previous covid 19 diagnosis (back in July), seizures presents to the ED due to shortness of breath;. As per her at bedside- patient has been having some shortness of breath over the past few days and today she was eating oatmeal for breakfast where her Aid noticed that she heard gurgling sounds coming from the patient and that she was having trouble breathing- the states that he but her on her stomach in hopes of expelling the contents- she looked in respiratory distress after this occurred and proceeded to call 911 patient was found to be hypoxic in the 80's upon their arrival, in the ED initial vitals: T 101.1 ; HR 156; on NRB was 93% notable labs: lactic acid 3.2 CXR shows RLL infiltrate with possible LL infiltrate developing UA positive as well- patient given vanc/zosyn and receievd 2L of fluids as IVC was collapsable on POCUS exam/. expressed he wants his to be full code. REVIEW OF SYSTEMS:UNABLE TO OBTAIN PATIENT IS NON-VERBAL CONSTITUTIONAL: Absent: fever, chills, diaphoresis, generalized weakness, malaise, loss of appetite, weight change HEENT: Absent: rhinorrhea, nasal congestion, throat pain, throat swelling, difficulty swallowing, mouth swelling, ear pain, eye pain, visual changes CARDIOVASCULAR: Absent: chest pain, syncope, palpitations, irregular heart rate, lightheadedness, peripheral edema RESPIRATORY: Absent: cough, shortness of breath, dyspnea with exertion, orthopnea, wheezing, stridor, hemoptysis GASTROINTESTINAL: Absent: abdominal pain, abdominal distension, nausea, vomiting, diarrhea, constipation, melena, hematochezia GENITOURINARY: Absent: dysuria, frequency, urgency, hesitancy, hematuria, flank pain, genital pain MUSCULOSKELETAL: Absent: myalgia, arthralgia, joint swelling, back pain, neck pain SKIN: Absent: rash, itching, pallor HEMATOLOGIC/IMMUNOLOGIC: Absent: easy bleeding, easy bruising, lymphadenopathy, frequent infections ENDOCRINE: Absent: unexplained weight gain, unexplained weight loss, heat intolerance, cold intolerance NEUROLOGIC: Absent: headache, focal weakness or paresthesias, dizziness, unsteady gait, seizure, mental status changes, bladder or bowel incontinence PSYCHIATRIC: Absent: anxiety, depression, suicidal or homicidal ideation, hallucinations. PHYSICAL EXAMINATION Vital Signs - 24 hr 11/01/19 11/01/19 11/01/19 19:40 20:00 20:30 Temperature 101.1 F H 101.1 F H Pulse Rate 159 H Pulse Rate [ 131 H Apical] Respiratory 50 H 28 H Rate Blood Pressure 124/104 H Blood Pressure 135/91 [Right Arm] O2 Sat by Pulse 91 L 93 L Oximetry (%) 11/01/19 11/01/19 20:35 22:09 Temperature Pulse Rate Pulse Rate [ 125 H 119 H Apical] Respiratory 36 H 36 H Rate Blood Pressure Blood Pressure 114/78 144/85 [Right Arm] O2 Sat by Pulse 95 98 Oximetry (%) GENERAL: Awake, moaning, on NRB in distress EYES: PEERLA; EOMI no scleral icterus NECK:no JVD; no lymphadenopathy LUNGS: coarse rhonchi appreciated B/L HEART: tahcycardic S1 and S2 without murmur, rub or gallop. ABDOMEN: Soft, NT ND +BS in all 4 quadrants EXTREMITIES:contracted; warm well-perfused no clubbing/cyanosis or edema NEUROLOGICAL: nonverbal; unable to follow commands PSYCHIATRIC: Cooperative. Good eye contact. Appropriate mood and affect. SKIN: Warm, dry, normal turgor, no rashes or lesions noted. Laboratory Results - last 24 hr 11/01/19 11/01/19 11/01/19 19:50 19:50 19:50 WBC 8.5 RBC 5.04 Hgb 15.4 H Hct 46.5 H D MCV 92.3 MCH 30.6 MCHC 33.2 RDW 13.1 Plt Count 204 D MPV 8.7 D Absolute Neuts (auto) 7.0 Neutrophils % 82.7 Lymphocytes % 10.9 D Monocytes % 5.9 Eosinophils % 0.0 Basophils % 0.5 D Nucleated RBC % 0 PT with INR 13.00 INR 1.10 H PTT (Actin FS) 27.4 VBG pH 7.380 POC VBG pCO2 43.2 POC VBG pO2 29.1 VBG HCO3 25.0 VBG O2 Sat (Corie) 53.8 L VBG Base Excess -0.3 Sodium Potassium Chloride Carbon Dioxide Anion Gap BUN Creatinine Est GFR (CKD-EPI)AfAm Est GFR (CKD-EPI)NonAf Random Glucose Lactic Acid Calcium Ferritin Total Bilirubin Direct Bilirubin AST ALT Alkaline Phosphatase LD Total Creatine Kinase Troponin I C-Reactive Protein Total Protein Albumin Urine Color Urine Appearance Urine pH Ur Specific [place] Urine Protein Urine Glucose (UA) Urine Ketones Urine Blood Urine Nitrite Urine Bilirubin Urine Urobilinogen Ur Leukocyte Esterase Urine WBC (Auto) Urine Casts (Auto) U Epithel Cells (Auto) Urine Bacteria (Auto) 11/01/19 11/01/19 11/01/19 19:50 19:50 19:50 WBC RBC Hgb Hct MCV MCH MCHC RDW Plt Count MPV Absolute Neuts (auto) Neutrophils % Lymphocytes % Monocytes % Eosinophils % Basophils % Nucleated RBC % PT with INR INR PTT (Actin FS) VBG pH POC VBG pCO2 POC VBG pO2 VBG HCO3 VBG O2 Sat (Corie) VBG Base Excess Sodium 139 Potassium 4.4 Chloride 103 Carbon Dioxide 23 Anion Gap 12 BUN 17.5 Creatinine 1.0 Est GFR (CKD-EPI)AfAm 64.27 Est GFR (CKD-EPI)NonAf 55.45 Random Glucose 203 H Lactic Acid 3.2 H* Calcium 9.6 Ferritin 224.8 Total Bilirubin 0.3 Direct Bilirubin 0.1 AST 17 ALT 11 L Alkaline Phosphatase 80 LD Total 338 H Creatine Kinase 78 Troponin I 0.04 C-Reactive Protein 1.3 H Total Protein 7.0 Albumin 3.1 L Urine Color Urine Appearance Urine pH Ur Specific [place] Urine Protein Urine Glucose (UA) Urine Ketones Urine Blood Urine Nitrite Urine Bilirubin Urine Urobilinogen Ur Leukocyte Esterase Urine WBC (Auto) Urine Casts (Auto) U Epithel Cells (Auto) Urine Bacteria (Auto) 11/01/19 20:00 WBC RBC Hgb Hct MCV MCH MCHC RDW Plt Count MPV Absolute Neuts (auto) Neutrophils % Lymphocytes % Monocytes % Eosinophils % Basophils % Nucleated RBC % PT with INR INR PTT (Actin FS) VBG pH POC VBG pCO2 POC VBG pO2 VBG HCO3 VBG O2 Sat (Corie) VBG Base Excess Sodium Potassium Chloride Carbon Dioxide Anion Gap BUN Creatinine Est GFR (CKD-EPI)AfAm Est GFR (CKD-EPI)NonAf Random Glucose Lactic Acid Calcium Ferritin Total Bilirubin Direct Bilirubin AST ALT Alkaline Phosphatase LD Total Creatine Kinase Troponin I C-Reactive Protein Total Protein Albumin Urine Color Yellow Urine Appearance Clear Urine pH 6.0 Ur Specific [place] 1.025 Urine Protein 3+ H Urine Glucose (UA) Negative Urine Ketones 1+ H Urine Blood 3+ H Urine Nitrite Negative Urine Bilirubin Negative Urine Urobilinogen 1.0 Ur Leukocyte Esterase 1+ H Urine WBC (Auto) 115 Urine Casts (Auto) 12 U Epithel Cells (Auto) 35 Urine Bacteria (Auto) 11 Active Medications Generic Name Dose Route Start Last Admin Trade Name Freq PRN Reason Stop Dose Admin Acetaminophen 1,000 mg 11/01/19 22:17 Ofirmev Injection - IVPB 11/02/19 22:17 Q6H PRN FEVER Chlorhexidine Gluconate 1 applic 11/02/19 22:00 Hibiclens For Decolonization - TP HS VALE Heparin Sodium (Porcine) 5,000 unit 11/02/19 02:00 Heparin - SQ Q8H-IV VALE Piperacillin Sod/Tazobactam 50 mls @ 100 mls/hr 11/02/19 02:00 Sod 3.375 gm/ Dextrose IVPB Q8H-IV VALE Protocol Sodium Chloride 500 mls @ 500 mls/hr 11/01/19 22:16 Normal Saline - IV 11/01/19 23:15 ASDIR STA Mupirocin 1 applic 11/01/19 22:15 Bactroban Ointment (For Decolonization) - NS 11/06/19 22:14 BID VALE ASSESSMENT/PLAN: 74 y/o female with PMH of Alzheimers (non-verbal, bedbound at baseline), previous covid 19 diagnosis (back in July), seizures presents to the ED due to shortness of breath #Neuro Alzheimers Seizure Disorder -will continue Depakote 500 BID -seizure precautions #Cardio currently normotensive -maintain MAP >65 -IVF -if MAP <65 despite IVF; will need pressor support -monitor hemodynamics #ID sepsis likely 2/2 aspiration PNA and UTI RLL infiltrate and UTI -will treat with zosyn -f/u blood cx, urine cx -repeat lactic acid -IVF -ID consult -f/u COVID 19 PCR -tylenol PRN for fevers -monitor hemodynamics #Pulm RLL infiltrate and possible developing LLL infiltrate currently saturating well on NRB -ABG shows Ph 7.44 PC02 32 O2 97 -likely 2/2 aspiration -f/u sputum cx; urine legionella -c/w zosyn -repeat CXR in AM -f/u covid 19 PCR -if patients respiraory status declines may need intubation; is ammenable -maintian o2 sat >92 #Renal Cr stable -monitor electrolytes -IVF f/e/n IVF monitor electrolytes NPO for now whiile on high amounts of 02 Dispo: We will continue to follow the patient. Thank you for this consultative opportunity. Problem List - Problems (1) Hypoxia Code(s): R09.02 - HYPOXEMIA (2) Pneumonia Code(s): J18.9 - PNEUMONIA, UNSPECIFIED ORGANISM Qualifiers: Pneumonia type: due to unspecified organism (3) Sepsis Code(s): A41.9 - SEPSIS, UNSPECIFIED ORGANISM Qualifiers: Sepsis type: sepsis due to unspecified organism Sepsis acute organ dysfunction status: unspecified Qualified Code(s): A41.9 - Sepsis, unspecified organism (4) UTI (urinary tract infection) Code(s): N39.0 - URINARY TRACT INFECTION, SITE NOT SPECIFIED Qualifiers: Urinary tract infection type: site unspecified Hematuria presence: without hematuria Qualified Code(s): N39.0 - Urinary tract infection, site not specified Visit type - Medication Review Med list reviewed for High Risk Meds patients 65 and older: Yes - Emergency Visit Emergency Visit: Yes ED Registration Date: 11/01/19 Care time: The patient presented to the Emergency Department on the above date and was hospitalized for further evaluation of their emergent condition. - New Patient This patient is new to me today: Yes Date on this admission: 11/01/19 - Critical Care Critical Care patient: Yes Total Critical Care Time (in minutes): 35 Critical Care Statement: The care of this patient involved high complexity decision making to prevent further life threatening deterioration of the patient's condition and/or to evaluate & treat vital organ system(s) failure or risk of failure. ATTENDING PHYSICIAN STATEMENT I saw and evaluated the patient. I reviewed the resident's note and discussed the case with the resident. I agree with the resident's findings and plan as documented. SUBJECTIVE: OBJECTIVE: ASSESSMENT AND PLAN:
[2019-11-01 22:28] LABS: ARTERIAL BLD GAS O2 SATURATION 97.7 mmHg (95-98); ARTERIAL BLOOD GAS BASE EXCESS -1.4 mmol/L (-2-2); ARTERIAL BLOOD GAS PO2 97.3 mmHg (80-100); ARTERIAL BLOOD GAS pH 7.444 (7.350-7.450)
[2019-11-01 22:29] LABS: ALLENS TEST POSITIVE
[2019-11-01] MEDS: MUPIROCIN 2% TOPICAL OINTMENT FOR DECOLONIZATION NS SCH (23:43)
[2019-11-01] MEDS ORDERED: ALBUTEROL SO4 2.5/IPRATROPIUM 0.5 INH SOL 3 ML VIAL.NEB. NEB PRN (23:48)
[2019-11-02] MEDS ORDERED: PIPERACILLIN/TAZOBACTAM 3.375 GM VIAL IVPB ONE ×4 (00:36→21:30)
[2019-11-02] MEDS ORDERED: DEXTROSE 5%-WATER - 50 ML IVPB ONE ×4 (00:37→21:30)
[2019-11-02] MEDS: HEPARIN NA (PORCINE) 5,000 UNITS/ML 1ML VIAL SQ SCH ×3 (01:04→17:06)
[2019-11-02] MEDS: PIPERACILLIN/TAZOB 3.375 GM 3.375 GM in DEXTROSE 5%-WATER - 50 ML IVPB SCH ×5 (01:04→17:06)
[2019-11-02] MEDS: SODIUM CHLORIDE 1,000 ML IV SCH ×2 (06:10→17:20)
--- NOTE | 2019-11-02 07:19 | PN ---
Physical Exam: SUBJECTIVE: Patient seen and examined. Pt nonverbal and bed-bound at baseline. No acute events overnight. OBJECTIVE: Vital Signs Period Temp Pulse Resp BP Sys/Dubon Pulse Ox Last 24 Hr 97.9 F-101.1 F 80-159 2-50 73-175/48-164 91-99 GENERAL: non-verbal and bedbound at baseline. Not in acute distress. HEENT: NCAT, on nasal cannula, dry mucous membranes. LUNGS: decreased lung sounds at the bases HEART: Regular rate and rhythm, S1, S2 without murmur ABDOMEN: Soft, nondistended, bowel sounds present in all 4 quadrants. Nontender to palpation. EXTREMITIES: warm, well-perfused, no edema. SKIN: Warm, dry Laboratory Last Values WBC 4.7 K/mm3 (4.0-10.0) 11/02/19 06:23 RBC 4.25 M/mm3 (3.60-5.2) 11/02/19 06:23 Hgb 12.9 GM/dL (10.7-15.3) 11/02/19 06:23 Hct 38.8 % (32.4-45.2) D 11/02/19 06:23 MCV 91.2 fl (80-96) 11/02/19 06:23 MCH 30.3 pg (25.7-33.7) 11/02/19 06:23 MCHC 33.2 g/dl (32.0-36.0) 11/02/19 06:23 RDW 13.2 % (11.6-15.6) 11/02/19 06:23 Plt Count 142 K/MM3 (134-434) D 11/02/19 06:23 MPV 8.3 fl (7.5-11.1) 11/02/19 06:23 Absolute Neuts (auto) 3.4 K/mm3 (1.5-8.0) 11/02/19 06:23 Neutrophils % 72.7 % (42.8-82.8) 11/02/19 06:23 Lymphocytes % 21.2 % (8-40) D 11/02/19 06:23 Monocytes % 5.8 % (3.8-10.2) 11/02/19 06:23 Eosinophils % 0.1 % (0-4.5) D 11/02/19 06:23 Basophils % 0.2 % (0-2.0) 11/02/19 06: Nucleated RBC % 0 % (0-0) 11/02/19 06: PT with INR 14.10 SEC (9.7-13.0) H 11/02/19 06:23 INR 1.19 (0.83-1.09) H 11/02/19 06:23 PTT (Actin FS) 29.6 SECONDS (25.2-36.5) 11/02/19 06:23 Anticoagulation Therapy No Result Required. 11/01/19 22:15 Puncture Site Right radial 11/01/19 22:15 Patient Temperature No Result Required. 11/01/19 22:15 ABG pH 7.444 (7.350-7.450) 11/01/19 22:15 ABG pCO2 32.40 mmHg (35-45) L 11/01/19 22:15 ABG pO2 97.3 mmHg (80-100) 11/01/19 22:15 ABG HCO3 21.7 mmol/L (22-27) L 11/01/19 22:15 ABG O2 Sat (Measured) 97.7 mmHg (95-98) 11/01/19 22:15 ABG O2 Content No Result Required. 11/01/19 22:15 ABG Base Excess -1.4 mmol/L (-2-2) 11/01/19 22:15 Kd Test Positive 11/01/19 22:15 VBG pH 7.380 (7.310-7.410) 11/01/19 19:50 POC VBG pCO2 43.2 mmHg (38-52) 11/01/19 19:50 POC VBG pO2 29.1 mmHg (28-48) 11/01/19 19:50 VBG HCO3 25.0 mmol/L (23-29) 11/01/19 19:50 VBG O2 Sat (Corie) 53.8 % (70-80) L 11/01/19 19:50 VBG Base Excess -0.3 mmol/L (-2-2) 11/01/19 19:50 Patient On Oxygen Yes 11/01/19 22:15 O2 Delivery Device No Result Required. 11/01/19 22:15 Oxygen Flow Rate 100 11/01/19 22:15 Vent Mode No Result Required. 07/31/20 22:15 Vent Rate No Result Required. 11/01/19 22:15 Mechanical Rate No Result Required. 11/01/19 22:15 PEEP No Result Required. 11/01/19 22:15 Pressure Support Vent No Result Required. 11/01/19 22:15 Sodium 140 mmol/L (136-145) 11/02/19 06:23 Potassium 4.1 mmol/L (3.5-5.1) 11/02/19 06:23 Chloride 107 mmol/L (98-107) 11/02/19 06:23 Carbon Dioxide 28 mmol/L (21-32) 11/02/19 06:23 Anion Gap 4 MMOL/L (8-16) L 11/02/19 06:23 BUN 11.1 mg/dL (7-18) 11/02/19 06:23 Creatinine 0.7 mg/dL (0.55-1.3) 11/02/19 06:23 Est GFR (CKD-EPI)AfAm 98.92 11/02/19 06:23 Est GFR (CKD-EPI)NonAf 85.35 11/02/19 06:23 Random Glucose 106 mg/dL (74-106) 11/02/19 06:23 Lactic Acid 3.5 mmol/L (0.4-2.0) H* 11/02/19 03:00 Calcium 9.0 mg/dL (8.5-10.1) 11/02/19 06:23 Phosphorus 2.9 mg/dL (2.5-4.9) 11/02/19 06:23 Magnesium 2.0 mg/dL (1.8-2.4) 11/02/19 06:23 Ferritin 224.8 ng/ml (8-388) 11/01/19 19:50 Total Bilirubin 0.5 mg/dL (0.2-1) 11/02/19 06:23 Direct Bilirubin 0.1 mg/dL (0.0-0.2) 11/01/19 19:50 AST 21 U/L (15-37) 11/02/19 06:23 ALT 15 U/L (13-61) 11/02/19 06:23 Alkaline Phosphatase 63 U/L (45-117) 11/02/19 06:23 LD Total 338 U/L (84-246) H 11/01/19 19:50 Creatine Kinase 78 U/L (26-192) 11/01/19 19:50 Troponin I 0.04 ng/ml (0.00-0.05) 11/01/19 19:50 C-Reactive Protein 1.3 MG/DL (0.00-0.3) H 11/01/19 19:50 Total Protein 5.6 g/dl (6.4-8.2) L 11/02/19 06:23 Albumin 2.3 g/dl (3.4-5.0) L 11/02/19 06:23 Urine Color Yellow 11/01/19 20:00 Urine Appearance Clear 11/01/19 20:00 Urine pH 6.0 (5.0-8.0) 11/01/19 20:00 Ur Specific [place] 1.025 (1.010-1.035) 11/01/19 20:00 Urine Protein 3+ (NEGATIVE) H 11/01/19 20:00 Urine Glucose (UA) Negative (NEGATIVE) 11/01/19 20:00 Urine Ketones 1+ (NEGATIVE) H 11/01/19 20:00 Urine Blood 3+ (NEGATIVE) H 11/01/19 20:00 Urine Nitrite Negative (NEGATIVE) 11/01/19 20:00 Urine Bilirubin Negative (NEGATIVE) 11/01/19 20:00 Urine Urobilinogen 1.0 mg/dL (0.2-1.0) 11/01/19 20:00 Ur Leukocyte Esterase 1+ (NEGATIVE) H 11/01/19 20:00 Urine WBC (Auto) 115 /uL (0-25.8) 11/01/19 20:00 Urine RBC (Auto) 638.1 /uL (0-23.9) 11/01/19 20:00 Urine Casts (Auto) 12 /uL (0-3.1) 11/01/19 20:00 U Epithel Cells (Auto) 35 /uL (0-25.1) 11/01/19 20:00 Urine Bacteria (Auto) 11 /uL (0-1359) 11/01/19 20:00 Active Medications Acetaminophen (Ofirmev Injection -) 1,000 mg IVPB Q6H PRN PRN Reason: FEVER Stop: 11/02/19 22:17 Last Admin: 11/02/19 01:04 Dose: 1,000 mg Documented by: Albuterol/Ipratropium (Duoneb -) 1 amp NEB Q6H PRN PRN Reason: SHORTNESS OF BREATH Chlorhexidine Gluconate (Hibiclens For Decolonization -) 1 applic TP HS [facility] Heparin Sodium (Porcine) (Heparin -) 5,000 unit SQ Q8H-IV VALE Last Admin: 11/02/19 01:04 Dose: 5,000 unit Documented by: Piperacillin Sod/Tazobactam (Sod 3.375 gm/ Dextrose) 50 mls @ 100 mls/hr IVPB Q8H-IV VALE; Protocol Piperacillin Sod/Tazobactam (Sod 3.375 gm/ Dextrose) 50 mls @ 100 mls/hr IVPB Q8H-IV VALE; Protocol Stop: 11/02/19 18:29 Last Admin: 11/02/19 01:04 Dose: 100 mls/hr Documented by: Sodium Chloride (Normal Saline -) 1,000 mls @ 50 mls/hr IV ASDIR [facility] Stop: 11/03/19 05:38 Last Admin: 11/02/19 06:10 Dose: 50 mls/hr Documented by: Mirtazapine (Remeron -) 15 mg PO HS VALE Mupirocin (Bactroban Ointment (For Decolonization) -) 1 applic NS BID [facility] Stop: 11/06/19 22:14 Last Admin: 11/01/19 23:43 Dose: Not Given Documented by: Risperidone (Risperdal -) 0.5 mg PO HS VALE Risperidone (Risperdal -) 0.25 mg PO DAILY [facility] Valproate Sodium (Depacon Injection -) 500 mg IVPB BID [facility] ASSESSMENT/PLAN: 74 y/o female with PMH of Alzheimers (non-verbal, bedbound at baseline), previous covid 19 diagnosis (back in July), seizures presents to the ED due to shortness of breath after eating oatmeal, to which her reported that he heard gurgling sounds. Admitted to ICU for sepsis secondary to aspiration vs. UTI. Pt is currently hemodynamically stable, saturating well on nasal cannula. Pt is medically optimized for transfer. Neuro Alzheimers Seizure Disorder -c/w home dose Depakote, risperidone, mirtazapine. -seizure, aspiration precautions Cardio currently normotensive -monitor and maintain MAP >65, if below, resuscitate with IVF. If refractory, will need pressors. -IVF Pulm RLL infiltrate and possible developing LLL infiltrate -ABG shows Ph 7.44 PC02 32 O2 97, likely secondary to aspiration -Saturating well on 3L NC -c/w zosyn -c/w albuterol/ipratropium -supplemental oxygen to maintain o2 sat >92 -f/u sputum cx; urine legionella Renal Cr stable -monitor electrolytes -IVF -UA positive for WBC, RBC, leukocyte esterase, proteins, ketones ID Sepsis likely 2/2 aspiration PNA vs. UTI RLL infiltrate with possible LLL consolidation History of COVID infection -Afebrile today -c/w IV tylenol PRN for fevers -c/w zosyn -Follow blood cx, urine cx -Follow lactic acid -ID consulted. Recommended c/w empiric zosyn. -COVID 19 PCR pending FEN -IVF-NS @ 50 -monitor electrolytes -NPO PPX -DVT: SQH Family discussion: -Spoke to , Mr. Peña. Signed DNR/DNI. Document in pt's chart. Dispo: is stable for transfer Visit type - Emergency Visit Emergency Visit: Yes ED Registration Date: 11/01/19 Care time: The patient presented to the Emergency Department on the above date and was hospitalized for further evaluation of their emergent condition. - New Patient This patient is new to me today: No - Critical Care Critical Care patient: Yes Total Critical Care Time (in minutes): 37 Critical Care Statement: The care of this patient involved high complexity decision making to prevent further life threatening deterioration of the patient's condition and/or to evaluate & treat vital organ system(s) failure or risk of failure. - Medication Review Med list reviewed for High Risk Meds patients 65 and older: Yes ATTENDING PHYSICIAN STATEMENT I saw and evaluated the patient. I reviewed the resident's note and discussed the case with the resident. I agree with the resident's findings and plan as documented. SUBJECTIVE: OBJECTIVE: ASSESSMENT AND PLAN:
[2019-11-02 07:22] LABS: BASO % 0.2 % (0-2.0); EOS % 0.1 % (0-4.5); HEMATOCRIT 38.8 % (32.4-45.2); HEMOGLOBIN 12.9 GM/dL (10.7-15.3); LYMPH % 21.2 % (8-40); MCH 30.3 pg (25.7-33.7); MCHC 33.2 g/dl (32.0-36.0); MEAN CELL VOLUME 91.2 fl (80-96); MEAN PLT VOLUME 8.3 fl (7.5-11.1); MONO % 5.8 % (3.8-10.2); NEUT % 72.7 % (42.8-82.8); PLATELET COUNT 142 K/MM3 (134-434); RBC 4.25 M/mm3 (3.60-5.2); RDW 13.2 % (11.6-15.6); WHITE BLOOD COUNT 4.7 K/mm3 (4.0-10.0)
[2019-11-02 07:25] LABS: INR 1.19 (0.83-1.09); PROTHROMBIN TIME (PATIENT) 14.1 SEC (9.7-13.0)
[2019-11-02 07:28] LABS: ACTIVATED PTT 29.6 SECONDS (25.2-36.5)
[2019-11-02 07:38] LABS: ALBUMIN 2.3 g/dl (3.4-5.0); BILIRUBIN,TOTAL 0.5 mg/dL (0.2-1); BLOOD UREA NITROGEN 11.1 mg/dL (7-18); CREATININE 0.7 mg/dL (0.55-1.3); PHOSPHOROUS 2.9 mg/dL (2.5-4.9); POTASSIUM 4.1 mmol/L (3.5-5.1); TOT PROT 5.6 g/dl (6.4-8.2)
[2019-11-02] MEDS ORDERED: PT OWN MED DRAWER 7, Y5N ONE (09:21)
[2019-11-02] MEDS ORDERED: DIVALPROEX SODIUM 500 MG TABLET E.C. PO SCH (10:00)
[2019-11-02] MEDS: VALPROATE SODIUM 500 MG/5 ML VIAL IVPB SCH ×2 (10:01→22:25)
[2019-11-02] MEDS: risperiDONE 0.25 MG TABLET PO SCH ×2 (10:02→21:01)
--- NOTE | 2019-11-02 10:05 | PN ---
Teaching Attending Note Name of Resident: Jelly Gallardo ATTENDING PHYSICIAN STATEMENT I saw and evaluated the patient. I reviewed the resident's note and discussed the case with the resident. I agree with the resident's findings and plan as documented. SUBJECTIVE: Pt seen and examined in the ICU. Groaning but otherwise nonverbal. Fevers down. No pressors. Saturating well on nasal cannula. OBJECTIVE: Vital Signs Period Temp Pulse Resp BP Sys/Dubon Pulse Ox Last 24 Hr 96.8 F-101.1 F 80-159 2-50 73-175/48-164 91-99 Intake & Output 10/30/19 10/31/19 11/01/19 11/02/19 23:59 23:59 23:59 23:59 Intake Total 2800 750 Output Total 200 Balance 2600 750 Weight 53 kg Gen: groaning but in NAD Heart: RRR Lung: decreased breath sounds at the bases Abd: soft, nontender Ext: no edema CBC, BMP 11/02/19 06:23 11/02/19 06:23 Active Medications Acetaminophen (Ofirmev Injection -) 1,000 mg IVPB Q6H PRN PRN Reason: FEVER Stop: 11/02/19 22:17 Last Admin: 11/02/19 01:04 Dose: 1,000 mg Documented by: Albuterol/Ipratropium (Duoneb -) 1 amp NEB Q6H PRN PRN Reason: SHORTNESS OF BREATH Chlorhexidine Gluconate (Hibiclens For Decolonization -) 1 applic TP HS VALE Heparin Sodium (Porcine) (Heparin -) 5,000 unit SQ Q8H-IV [facility]E Last Admin: 11/02/19 01:04 Dose: 5,000 unit Documented by: Piperacillin Sod/Tazobactam (Sod 3.375 gm/ Dextrose) 50 mls @ 100 mls/hr IVPB Q8H-IV [facility]E; Protocol Piperacillin Sod/Tazobactam (Sod 3.375 gm/ Dextrose) 50 mls @ 100 mls/hr IVPB Q8H-IV VALE; Protocol Stop: 11/02/19 18:29 Last Admin: 11/02/19 01:04 Dose: 100 mls/hr Documented by: Sodium Chloride (Normal Saline -) 1,000 mls @ 50 mls/hr IV ASDIR [facility] Stop: 11/03/19 05:38 Last Admin: 11/02/19 06:10 Dose: 50 mls/hr Documented by: Mirtazapine (Remeron -) 15 mg PO HS [facility] Mupirocin (Bactroban Ointment (For Decolonization) -) 1 applic NS BID [facility] Stop: 11/06/19 22:14 Last Admin: 11/01/19 23:43 Dose: Not Given Documented by: Risperidone (Risperdal -) 0.5 mg PO HS [facility] Risperidone (Risperdal -) 0.25 mg PO DAILY [facility] Valproate Sodium (Depacon Injection -) 500 mg IVPB BID [facility] ASSESSMENT AND PLAN: Pneumonia likely Aspiration UTI Sepsis Lactic Acidosis Seizure Disorder h/o COVID19 Dementia - continue antibiotics - f/u cultures - O2 to keep SpO2 >90% - IVF - monitor urine output, creatinine - aspiration precautions - DVT prophylaxis - can monitor on floor
--- NOTE | 2019-11-02 10:07 | PN ---
Progress Note (short form) - Note Progress Note: Transfer note: Subjective: This is a 74 yo F with PMH Alzheimer's (nonverbal and bedbound at baseline), seizure disorders, previous COVID 19 diagnosis (07/2019), presented to the ED with SOB. Pt's provided history. Pt was eating oatmeal and was subsequently making gurgling noises, as per group home supervisor. Pt was in acute distress, thus called an ambulance. Pt was hypoxic with SpO2 ~80% upon EMS arrival. In the ED, pt arrived febrile (101F), tachycardic (159). Pt placed on NRB. Subsequent SpO2 93%. Labs significant for lactic acid of 3.2. CXR done in ED showed RLL PNA with LLL infiltrates/consolidation. Blood, urine, sputum cultures pending. UA positive for WBC, RBC, bacteria, leukocyte esterase, proteins and ketones. Pt treated with empiric zosyn and albuterol/ipratropium and admitted to ICU for sepsis secondary to aspiration PNA and UTI. Pt weaned to NC 4L and saturating at 97%. Pt is afebrile, hemodynamically stable and saturating well. Pt is medically optimized for transfer. Objective : Last Vital Signs Temp Pulse Resp BP Pulse Ox 96.8 F L 92 H 23 H 129/80 98 11/02/19 08:00 11/02/19 08:00 11/02/19 09:00 11/02/19 08:00 11/02/19 09:00 GENERAL: non-verbal and bedbound at baseline. Not in acute distress. HEENT: NCAT, on nasal cannula, dry mucous membranes. LUNGS: decreased lung sounds at the bases HEART: Regular rate and rhythm, S1, S2 without murmur ABDOMEN: Soft, nondistended, bowel sounds present in all 4 quadrants. Nontender to palpation. EXTREMITIES: warm, well-perfused, no edema. SKIN: Warm, dry A/P: This is a 74 yo F with PMH Alzheimer's (nonverbal and bedbound at baseline), seizure disorders, previous COVID 19 diagnosis (07/2019), presented to the ED with SOB and admitted to ICU for sepsis secondary to aspiration PNA and UTI. Pt weaned to NC 4L and saturating at 97%. Pt is afebrile, hemodynamically stable and saturating well. Pt is medically optimized for transfer. Spoke to at bedside. Signed DNR/DNI. In pt's chart. Problem list: Sepsis secondary to aspiration PNA and UTI Alzheimer's Seizure disorder Previous COVID infection
--- NOTE | 2019-11-02 10:33 | PN ---
Progress Note (short form) - Note Progress Note: ID CONSULT DICTATED PROBABLE ASP PNEUMONIA R/O SEPSIS SECONDARY TO PNEUMONIA UTI LACTIC ACIDOSIS OBS AWAIT SEPSIS WORKUP CONTINUE EMPIRIC ZOSYN CRITICAL CARE TIME 35MIN
--- NOTE | 2019-11-02 11:04 | CONS ---
DATE OF CONSULTATION: DATE OF DICTATION: 11/02/2019 CHIEF COMPLAINT/HISTORY OF PRESENT ILLNESS: The patient is a 74-year-old female who is evaluated for probable aspiration pneumonia. History was obtained from the chart as she cannot give a history secondary to advanced dementia. The patient resides at home. She has a home health aide. She was admitted to the hospital on November 01, 2019, with shortness of breath. According to the notes, her had returned home and had noted home health aide feeding his . She apparently had been choking on oatmeal. She was short of breath. She was brought to the emergency room where she was noted to be tachypneic and hypoxemic with O2 saturations in the 80s. A Morales catheter was inserted, and cloudy urine was obtained. Chest x-ray shows bilateral infiltrates, right greater than left. She is also noted to have an elevated lactic acid level. She is unable to offer any additional details. At the present time she is not acutely short of breath on nasal cannula oxygen. She has not had recent hospital admissions. According to the notes, she was diagnosed with COVID-19 in July of 2019. Also according to the notes, she has had progressive decline in her general state over the past several months dating back to April. No known ill contacts. No recent hospitalizations. PAST MEDICAL HISTORY: Positive for dementia, seizure disorder, pancreatitis. History of COVID-19 infection in July of 2019. History of cholecystitis. ALLERGIES: No known allergies. MEDICATIONS: Medications at the present time include Zosyn, albuterol, heparin, Risperdal. SOCIAL HISTORY: She resides at home. She is dependent in activities of daily living, and no active tobacco or alcohol use. Patient is bedbound and has been nonverbal for the past 3 years. REVIEW OF SYSTEMS: Neurologic: Positive for dementia. Cardiac: Negative chest pain or palpitations. Respiratory: As per HPI. Gastrointestinal: Negative for vomiting or diarrhea. Genitourinary: Positive for urinary tract infection. LABORATORY DATA: White count 4.7, hematocrit 38.8, platelet count 142. Creatinine 0.7, lactic acid 3.5. Liver enzymes normal. Urinalysis: White cells 115. PHYSICAL EXAMINATION: General: She is not verbally responsive. Vital Signs: Temperature 96.8, T-max 101.1. Blood pressure 129/80, pulse 92, regular. Respiration 23 per minute. HEENT: Sclerae are anicteric. Cardiovascular: Heart sounds S1, S2. Lungs: Decreased breath sounds bilaterally. Abdomen: Soft. No tenderness elicited. Extremities: Negative for edema. Contractures noted of the upper extremities. IMPRESSION: 1. Probable aspiration pneumonia. 2. Rule out sepsis ready to pneumonia. 3. Urinary tract infection, possible sepsis secondary to UTI. 4. Lactic acidosis. 5. Dementia. Pending sepsis workup, empiric antibiotic coverage with Zosyn. Hemodynamic and ventilatory support. Prognosis is guarded. CRITICAL CARE TIME SPENT: Thirty-five minutes. Thank you for the kind referral. LISA CARRINGTON M.D. [id number]
[2019-11-02] MEDS: MUPIROCIN 2% TOPICAL OINTMENT FOR DECOLONIZATION NS SCH ×2 (11:16→22:25)
--- NOTE | 2019-11-02 12:50 | HOSP ---
Subjective - Review of Symptoms Events since last encounter: ICU deemed pt stable for downgrade. Pt accepted Subjective: pt cannot speak, which is baseline Physical Examination Vital Signs: Vital Signs Temperature 97.1 F L 11/02/19 12:00 Pulse Rate 73 11/02/19 12:00 Respiratory Rate 21 H 11/02/19 12:00 Blood Pressure 97/63 11/02/19 12:00 O2 Sat by Pulse Oximetry (%) 98 11/02/19 12:00 Constitutional: Yes: Calm, Cachectic, Thin Eyes: Yes: WNL, Conjunctiva Clear HENT: Yes: Atraumatic, Normocephalic Neck: Yes: Supple, Trachea Midline Cardiovascular: Yes: Regular Rate and Rhythm, S1, S2. No: Tachycardia Respiratory: Yes: Rales, Rhonchi, Wheezes, Other (4L NC) Gastrointestinal: Yes: Soft, Hyperactive Bowel Sounds. No: Tenderness, Epigastrium, Tenderness, Rebound Musculoskeletal: Yes: Other (contracted lower extremities, upper extremities) Neurological: Yes: Aphasia. No: Alert, Oriented Labs: CBC, BMP 11/02/19 06:23 11/02/19 06:23 Visit type - Medication Review Med list reviewed for High Risk Meds patients 65 and older: Yes - Emergency Visit Emergency Visit: No - New Patient This patient is new to me today: Yes Date on this admission: 11/10/19 - Critical Care Critical Care patient: No
[2019-11-02] MEDS: MIRTAZAPINE 15 MG TABLET (FP) PO SCH (21:01)
[2019-11-02] MEDS: CHLORHEXIDINE GLUCONATE 4% CLEANSER FOR DECOLONIZATION TP SCH (22:25)
[2019-11-03] MEDS: HEPARIN NA (PORCINE) 5,000 UNITS/ML 1ML VIAL SQ SCH ×3 (03:00→17:06)
[2019-11-03] MEDS: PIPERACILLIN/TAZOB 3.375 GM 3.375 GM in DEXTROSE 5%-WATER - 50 ML IVPB SCH ×3 (03:04→17:06)
[2019-11-03 07:20] LABS: BASO % 0.3 % (0-2.0); EOS % 1.5 % (0-4.5); HEMATOCRIT 37.8 % (32.4-45.2); HEMOGLOBIN 12.5 GM/dL (10.7-15.3); LYMPH % 14.3 % (8-40); MCH 29.9 pg (25.7-33.7); MCHC 33.1 g/dl (32.0-36.0); MEAN CELL VOLUME 90.3 fl (80-96); MEAN PLT VOLUME 8.4 fl (7.5-11.1); MONO % 6.3 % (3.8-10.2); NEUT % 77.6 % (42.8-82.8); PLATELET COUNT 134 K/MM3 (134-434); RBC 4.18 M/mm3 (3.60-5.2); RDW 13.1 % (11.6-15.6); WHITE BLOOD COUNT 6.9 K/mm3 (4.0-10.0)
[2019-11-03 07:43] LABS: ALBUMIN 2.2 g/dl (3.4-5.0); BILIRUBIN,TOTAL 0.4 mg/dL (0.2-1); CREATININE 0.5 mg/dL (0.55-1.3); POTASSIUM 3.3 mmol/L (3.5-5.1); TOT PROT 5.3 g/dl (6.4-8.2)
[2019-11-03] MEDS: KCL 10 MEQ IVPB 10 MEQ/100 ML INFUS.BAG IVPB SCH ×3 (08:45→10:44)
[2019-11-03] MEDS ORDERED: PIPERACILLIN/TAZOBACTAM 3.375 GM VIAL IVPB ONE ×2 (09:14→17:05)
[2019-11-03] MEDS ORDERED: DEXTROSE 5%-WATER - 50 ML IVPB ONE ×2 (09:15→17:05)
[2019-11-03] MEDS: risperiDONE 0.25 MG TABLET PO SCH ×2 (09:30→21:20)
[2019-11-03] MEDS: VALPROATE SODIUM 500 MG/5 ML VIAL IVPB SCH ×2 (09:30→22:17)
[2019-11-03] MEDS: MUPIROCIN 2% TOPICAL OINTMENT FOR DECOLONIZATION NS SCH ×2 (09:42→22:17)
--- NOTE | 2019-11-03 10:22 | PN ---
Teaching Attending Note Name of Resident: Braeden Webster ATTENDING PHYSICIAN STATEMENT I saw and evaluated the patient. I reviewed the resident's note and discussed the case with the resident. I agree with the resident's findings and plan as documented. SUBJECTIVE: Pt seen and examined in the ICU. Pt nonverbal, low grade temp overnight. No pressors. Saturating well on nasal cannula. OBJECTIVE: Vital Signs Period Temp Pulse Resp BP Sys/Dubon Pulse Ox Last 24 Hr 97.0 F-100.1 F 62-107 17-27 86-134/53-93 93-100 Intake & Output 10/31/19 11/01/19 11/02/19 11/03/19 23:59 23:59 23:59 23:59 Intake Total 2800 1550 750 Output Total 200 1175 Balance 2600 375 750 Weight 53 kg Gen: NAD at rest Heart: RRR Lung: decreased breath sounds at the bases Abd: soft, nontender Ext: no edema CBC, BMP 11/03/19 06:38 11/03/19 06:38 Active Medications Albuterol/Ipratropium (Duoneb -) 1 amp NEB Q6H PRN PRN Reason: SHORTNESS OF BREATH Chlorhexidine Gluconate (Hibiclens For Decolonization -) 1 applic TP HS [facility] Last Admin: 11/02/19 22:25 Dose: 1 applic Documented by: Heparin Sodium (Porcine) (Heparin -) 5,000 unit SQ Q8H-IV [facility]E Last Admin: 11/03/19 09:30 Dose: 5,000 unit Documented by: Piperacillin Sod/Tazobactam (Sod 3.375 gm/ Dextrose) 50 mls @ 100 mls/hr IVPB Q8H-IV VALE; Protocol Last Admin: 11/03/19 09:29 Dose: 100 mls/hr Documented by: Potassium Chloride (Potassium Chloride 10 Meq Premix Ivpb -) 10 meq in 100 mls @ 100 mls/hr IVPB Q60M [facility] Stop: 11/03/19 11:44 Last Admin: 11/03/19 08:45 Dose: 100 mls/hr Documented by: Mirtazapine (Remeron -) 15 mg PO HS [facility] Last Admin: 11/02/19 21:01 Dose: Not Given Documented by: Mupirocin (Bactroban Ointment (For Decolonization) -) 1 applic NS BID [facility] Stop: 11/06/19 22:14 Last Admin: 11/03/19 09:42 Dose: 1 applic Documented by: Risperidone (Risperdal -) 0.5 mg PO HS [facility] Last Admin: 11/02/19 21:01 Dose: Not Given Documented by: Risperidone (Risperdal -) 0.25 mg PO DAILY [facility] Last Admin: 11/03/19 09:30 Dose: Not Given Documented by: Valproate Sodium (Depacon Injection -) 500 mg IVPB BID [facility] Last Admin: 11/03/19 09:30 Dose: 500 mg Documented by: ASSESSMENT AND PLAN: Pneumonia likely Aspiration UTI Sepsis Lactic Acidosis Seizure Disorder h/o COVID19 Dementia - continue antibiotics - f/u cultures - O2 to keep SpO2 >90% - IVF, add dextrose - monitor urine output, creatinine - aspiration precautions - DVT prophylaxis - can monitor on floor
[2019-11-03] MEDS: D5-1/2NS+20 MEQ KCL - 20 MEQ/1,000 ML INFUS.BAG IV SCH (10:43)
--- NOTE | 2019-11-03 13:21 | PN ---
Physical Exam: SUBJECTIVE: Patient seen and examined Patient seen and evaluated at bedside. Nonverbal at baseline. In no acute distress. Low grade temperature overnight. will continue to monitor for any acute changes. OBJECTIVE: Vital Signs Period Temp Pulse Resp BP Sys/Dubon Pulse Ox Last 24 Hr 97.0 F-100.1 F 62-107 17-27 86-134/53-93 93-100 GENERAL: The patient is awake, alert, and fully oriented, in no acute distress. HEAD: Normal with no signs of trauma. EYES: PERRL, extraocular movements intact, sclera anicteric, conjunctiva clear. No ptosis. ENT: Ears normal, nares patent, oropharynx clear without exudates, moist mucous membranes. NECK: Trachea midline, full range of motion, supple. LUNGS: Breath sounds equal, clear to auscultation bilaterally, no wheezes, no crackles, no accessory muscle use. HEART: Regular rate and rhythm, S1, S2 without murmur, rub or gallop. ABDOMEN: Soft, nontender, nondistended, normoactive bowel sounds, no guarding, no rebound, no hepatosplenomegaly, no masses. EXTREMITIES: 2+ pulses, warm, well-perfused, no edema. NEUROLOGICAL: Cranial nerves II through XII grossly intact. Normal speech, gait not observed. PSYCH: Normal mood, normal affect. SKIN: Warm, dry, normal turgor, no rashes or lesions noted Laboratory Results - last 24 hr 11/03/19 11/03/19 06:38 06:38 WBC 6.9 RBC 4.18 Hgb 12.5 Hct 37.8 MCV 90.3 MCH 29.9 MCHC 33.1 RDW 13.1 Plt Count 134 MPV 8.4 Absolute Neuts (auto) 5.3 Neutrophils % 77.6 Lymphocytes % 14.3 D Monocytes % 6.3 Eosinophils % 1.5 D Basophils % 0.3 Nucleated RBC % 0 Sodium 142 Potassium 3.3 L Chloride 109 H Carbon Dioxide 27 Anion Gap 5 L BUN 5.0 L Creatinine 0.5 L Est GFR (CKD-EPI)AfAm 110.50 Est GFR (CKD-EPI)NonAf 95.34 Random Glucose 87 Calcium 9.0 Phosphorus 3.0 Magnesium 2.0 Total Bilirubin 0.4 AST 18 ALT 14 Alkaline Phosphatase 63 Total Protein 5.3 L Albumin 2.2 L Active Medications Generic Name Dose Route Start Last Admin Trade Name Freq PRN Reason Stop Dose Admin Albuterol/Ipratropium 1 amp 11/01/19 23:48 Duoneb - NEB Q6H PRN SHORTNESS OF BREATH Chlorhexidine Gluconate 1 applic 11/02/19 22:00 11/02/19 22:25 Hibiclens For Decolonization - TP 1 applic HS [facility] Administration Heparin Sodium (Porcine) 5,000 unit 11/02/19 02:00 11/03/19 09:30 Heparin - SQ 5,000 unit Q8H-IV VALE Administration Piperacillin Sod/Tazobactam 50 mls @ 100 mls/hr 11/02/19 18:00 11/03/19 09:29 Sod 3.375 gm/ Dextrose IVPB 100 mls/hr Q8H-IV VALE Administration Protocol Potassium Chloride/Dextrose/Sod Cl 20 meq in 1,000 mls @ 75 mls/hr 11/03/19 10:30 11/03/19 10:43 D5-1/2ns+20 Meq Kcl - IV 75 mls/hr ASDIR VALE Administration Mirtazapine 15 mg 11/02/19 22:00 11/02/19 21:01 Remeron - PO Not Given HS [facility] Mupirocin 1 applic 11/01/19 22:15 11/03/19 09:42 Bactroban Ointment (For Decolonization) - NS 11/06/19 22:14 1 applic BID [facility] Administration Risperidone 0.5 mg 11/02/19 22:00 11/02/19 21:01 Risperdal - PO Not Given HS [facility] Risperidone 0.25 mg 11/02/19 10:00 11/03/19 09:30 Risperdal - PO Not Given DAILY [facility] Valproate Sodium 500 mg 11/02/19 10:00 11/03/19 09:30 Depacon Injection - IVPB 500 mg BID [facility] Administration ASSESSMENT/PLAN: 74 y.o. F PMHx Alzheimers, seizures, Covid in july. Presenting with SOB admitted to the ICU for sepsis secondary to aspiration pneumonia and UTI. # Neuro - Patient is nonverbal at baseline - No evidence of seizures; continue valproate 500mg - Risperidone 0.25mg daily # Cardio - BP 102/62, maintain MAP >65 - Fluids D5 1/2NS # ID - Continue Zosyn, currently day 3 3.375 Q8 - f/u cultures # Pulm - Sepsis likely secondary to aspiration pneumonia - Maintain O2 >90% - Aspiration precautions - Duonebs Q6 PRN - Maintain O2 >92%; may need intubation pending status # Renal - Cr stable - Monitor electrolytes # FEN - Ordered D5 1/2NS & 20 meq KCL - Monitor I&O's and Cr # DVT Prophylaxis - Heparin 5000u SQ Q8 # Dispo - Patient in ICU; Will continue to ara Visit type - Emergency Visit Emergency Visit: No - New Patient This patient is new to me today: Yes Date on this admission: 11/05/19 - Critical Care Critical Care patient: Yes Total Critical Care Time (in minutes): 45 Critical Care Statement: The care of this patient involved high complexity decision making to prevent further life threatening deterioration of the patient's condition and/or to evaluate & treat vital organ system(s) failure or risk of failure. - Medication Review Med list reviewed for High Risk Meds patients 65 and older: Yes ATTENDING PHYSICIAN STATEMENT I saw and evaluated the patient. I reviewed the resident's note and discussed the case with the resident. I agree with the resident's findings and plan as documented. SUBJECTIVE: OBJECTIVE: ASSESSMENT AND PLAN:
[2019-11-03 13:59] VITALS: BMI 21.2
[2019-11-03] MEDS ORDERED: ACETAMINOPHEN 1000 MG/100 ML VIAL (NON FORMULARY) IVPB ONE (15:06)
--- NOTE | 2019-11-03 18:02 | PN ---
Progress Note, Physician Chief Complaint: AWAKE, NOT VERBALLY RESPONSIVE NO ACUTE DISTRESS BREATHING NON LABORED AFEBRILE WBC WNL CULTURES NO GROWTH - Current Medication List Current Medications: Active Medications Albuterol/Ipratropium (Duoneb -) 1 amp NEB Q6H PRN PRN Reason: SHORTNESS OF BREATH Chlorhexidine Gluconate (Hibiclens For Decolonization -) 1 applic TP HS [facility] Last Admin: 11/02/19 22:25 Dose: 1 applic Documented by: Heparin Sodium (Porcine) (Heparin -) 5,000 unit SQ Q8H-IV [facility] Last Admin: 11/03/19 17:06 Dose: 5,000 unit Documented by: Piperacillin Sod/Tazobactam (Sod 3.375 gm/ Dextrose) 50 mls @ 100 mls/hr IVPB Q8H-IV [facility]; Protocol Last Admin: 11/03/19 17:06 Dose: 100 mls/hr Documented by: Potassium Chloride/Dextrose/Sod Cl (D5-1/2ns+20 Meq Kcl -) 20 meq in 1,000 mls @ 75 mls/hr IV ASDIR [facility] Last Admin: 11/03/19 10:43 Dose: 75 mls/hr Documented by: Mirtazapine (Remeron -) 15 mg PO [facility] Last Admin: 11/02/19 21:01 Dose: Not Given Documented by: Mupirocin (Bactroban Ointment (For Decolonization) -) 1 applic NS BID [facility] Stop: 11/06/19 22:14 Last Admin: 11/03/19 09:42 Dose: 1 applic Documented by: Risperidone (Risperdal -) 0.5 mg PO [facility] Last Admin: 11/02/19 21:01 Dose: Not Given Documented by: Risperidone (Risperdal -) 0.25 mg PO DAILY [facility] Last Admin: 11/03/19 09:30 Dose: Not Given Documented by: Valproate Sodium (Depacon Injection -) 500 mg IVPB BID [facility] Last Admin: 11/03/19 09:30 Dose: 500 mg Documented by: - Objective Vital Signs: Vital Signs Temperature 98.0 F 11/03/19 16:00 Pulse Rate 67 11/03/19 16:00 Respiratory Rate 21 H 11/03/19 16:00 Blood Pressure 121/74 11/03/19 16:00 O2 Sat by Pulse Oximetry (%) 100 11/03/19 16:00 Constitutional: Yes: No Distress Cardiovascular: Yes: Regular Rate and Rhythm, S1, S2 Respiratory: Yes: Diminished Gastrointestinal: Yes: Normal Bowel Sounds, Soft Labs: CBC, BMP 11/03/19 06:38 11/03/19 06:38 INR, PTT INR 1.19 (0.83-1.09) H 11/02/19 06:23 Assessment/Plan PROBABLE ASP PNEUMONIA R/O SEPSIS SECONDARY TO PNEUMONIA UTI LACTIC ACIDOSIS RESOLVED OBS CONTINUE EMPIRIC ZOSYN
--- NOTE | 2019-11-03 19:02 | PN ---
Physical Exam: SUBJECTIVE: Patient seen and examined Nonverbal, resting comfortably OBJECTIVE: Vital Signs Period Temp Pulse Resp BP Sys/Dubon Pulse Ox Last 24 Hr 97.5 F-100.1 F 62-107 17-27 86-140/53-122 93-100 GENERAL: The patient is awake, alert, non verbal, in no acute distress. not following commands HEAD: Normal with no signs of trauma. EYES: PERRL, extraocular movements intact, sclera anicteric, conjunctiva clear. No ptosis. ENT: Ears normal, nares patent, oropharynx clear without exudates, moist mucous membranes. NECK: Trachea midline, full range of motion, supple. LUNGS: Breath sounds equal, clear to auscultation bilaterally, no wheezes, no crackles, no accessory muscle use. HEART: Regular rate and rhythm, S1, S2 without murmur, rub or gallop. ABDOMEN: Soft, nontender, nondistended, normoactive bowel sounds, no guarding, no rebound, no hepatosplenomegaly, no masses. EXTREMITIES: 2+ pulses, warm, well-perfused, no edema. NEUROLOGICAL: Unable to follow commands Laboratory Results - last 24 hr 11/03/19 11/03/19 06:38 06:38 WBC 6.9 RBC 4.18 Hgb 12.5 Hct 37.8 MCV 90.3 MCH 29.9 MCHC 33.1 RDW 13.1 Plt Count 134 MPV 8.4 Absolute Neuts (auto) 5.3 Neutrophils % 77.6 Lymphocytes % 14.3 D Monocytes % 6.3 Eosinophils % 1.5 D Basophils % 0.3 Nucleated RBC % 0 Sodium 142 Potassium 3.3 L Chloride 109 H Carbon Dioxide 27 Anion Gap 5 L BUN 5.0 L Creatinine 0.5 L Est GFR (CKD-EPI)AfAm 110.50 Est GFR (CKD-EPI)NonAf 95.34 Random Glucose 87 Calcium 9.0 Phosphorus 3.0 Magnesium 2.0 Total Bilirubin 0.4 AST 18 ALT 14 Alkaline Phosphatase 63 Total Protein 5.3 L Albumin 2.2 L Active Medications Generic Name Dose Route Start Last Admin Trade Name Freq PRN Reason Stop Dose Admin Albuterol/Ipratropium 1 amp 11/01/19 23:48 Duoneb - NEB Q6H PRN SHORTNESS OF BREATH Chlorhexidine Gluconate 1 applic 11/02/19 22:00 11/02/19 22:25 Hibiclens For Decolonization - TP 1 applic HS [facility] Administration Heparin Sodium (Porcine) 5,000 unit 11/02/19 02:00 11/03/19 17:06 Heparin - SQ 5,000 unit Q8H-IV [facility] Administration Piperacillin Sod/Tazobactam 50 mls @ 100 mls/hr 11/02/19 18:00 11/03/19 17:06 Sod 3.375 gm/ Dextrose IVPB 100 mls/hr Q8H-IV [facility] Administration Protocol Potassium Chloride/Dextrose/Sod Cl 20 meq in 1,000 mls @ 75 mls/hr 11/03/19 10:30 11/03/19 10:43 D5-1/2ns+20 Meq Kcl - IV 75 mls/hr ASDIR [facility] Administration Mirtazapine 15 mg 11/02/19 22:00 11/02/19 21:01 Remeron - PO Not Given HS [facility] Mupirocin 1 applic 11/01/19 22:15 11/03/19 09:42 Bactroban Ointment (For Decolonization) - NS 11/06/19 22:14 1 applic BID [facility] Administration Risperidone 0.5 mg 11/02/19 22:00 11/02/19 21:01 Risperdal - PO Not Given HS [facility] Risperidone 0.25 mg 11/02/19 10:00 11/03/19 09:30 Risperdal - PO Not Given DAILY [facility] Valproate Sodium 500 mg 11/02/19 10:00 11/03/19 09:30 Depacon Injection - IVPB 500 mg BID [facility] Administration ASSESSMENT/PLAN: 74 y.o. F PMHx Alzheimers Dementia, seizures, Covid in july admitted to the ICU for sepsis secondary to aspiration pneumonia and UTI. # Sepsis due to pneumonia ?aspiration, maintain aspiration precautions - check lactic acid in am, was decreasing - Continue Zosyn, currently day 3 3.375 Q8 - blood cultures - ntd urine culture - pending - urine legionella neg monitor hypotension - on ivf *Seizure D/O - on iv depakote as per home med rec *Dementia - Cont remeron, risperdal No current agitation *hypokalemia - on ivf with potassium, but will give an exra dose of kcl *dvt prophy - sq heparin Visit type - Emergency Visit Emergency Visit: Yes ED Registration Date: 11/01/19 Care time: The patient presented to the Emergency Department on the above date and was hospitalized for further evaluation of their emergent condition. - New Patient This patient is new to me today: Yes Date on this admission: 11/03/19 - Critical Care Critical Care patient: No - Discharge Referral Referred to [facility] Med P.C.: No - Medication Review Med list reviewed for High Risk Meds patients 65 and older: Yes
[2019-11-03] MEDS ORDERED: SODIUM CHLORIDE 500 ML IV STA (21:09)
[2019-11-03] MEDS: MIRTAZAPINE 15 MG TABLET (FP) PO SCH (21:20)
[2019-11-03] MEDS: CHLORHEXIDINE GLUCONATE 4% CLEANSER FOR DECOLONIZATION TP SCH (22:17)
[2019-11-04] MEDS ORDERED: PIPERACILLIN/TAZOBACTAM 3.375 GM VIAL IVPB ONE ×3 (00:12→18:06)
[2019-11-04] MEDS ORDERED: DEXTROSE 5%-WATER - 50 ML IVPB ONE ×3 (00:13→18:06)
[2019-11-04] MEDS: KCL 10 MEQ IVPB 10 MEQ/100 ML INFUS.BAG IVPB SCH ×2 (00:14→02:10)
[2019-11-04] MEDS: HEPARIN NA (PORCINE) 5,000 UNITS/ML 1ML VIAL SQ SCH ×3 (01:01→21:45)
[2019-11-04] MEDS: PIPERACILLIN/TAZOB 3.375 GM 3.375 GM in DEXTROSE 5%-WATER - 50 ML IVPB SCH ×3 (02:10→18:10)
[2019-11-04 06:37] LABS: BASO % 0.3 % (0-2.0); EOS % 3.4 % (0-4.5); HEMATOCRIT 36.1 % (32.4-45.2); HEMOGLOBIN 12.2 GM/dL (10.7-15.3); LYMPH % 20.8 % (8-40); MCH 30.6 pg (25.7-33.7); MCHC 33.7 g/dl (32.0-36.0); MEAN CELL VOLUME 90.6 fl (80-96); MEAN PLT VOLUME 7.9 fl (7.5-11.1); MONO % 6.1 % (3.8-10.2); NEUT % 69.4 % (42.8-82.8); PLATELET COUNT 151 K/MM3 (134-434); RBC 3.98 M/mm3 (3.60-5.2); RDW 13.1 % (11.6-15.6); WHITE BLOOD COUNT 6.5 K/mm3 (4.0-10.0)
--- NOTE | 2019-11-04 07:06 | PN ---
Physical Exam: SUBJECTIVE: Patient seen and examined. Pt remained nonverbal and unable to participate in interview. No acute events overnight. OBJECTIVE: Vital Signs Period Temp Pulse Resp BP Sys/Dubon Pulse Ox Last 24 Hr 97.6 F-99.4 F 62-107 13-21 81-151/48-122 95-100 GENERAL: non-verbal and bedbound at baseline. Not in acute distress. HEENT: NCAT, on nasal cannula, dry mucous membranes. LUNGS: decreased lung sounds at the bases HEART: Regular rate and rhythm, S1, S2 without murmur ABDOMEN: Soft, nondistended, bowel sounds present in all 4 quadrants. Nontender to palpation. EXTREMITIES: warm, well-perfused, no edema. SKIN: Warm, dry Laboratory Last Values WBC 6.5 K/mm3 (4.0-10.0) 11/04/19 05:30 RBC 3.98 M/mm3 (3.60-5.2) 11/04/19 05:30 Hgb 12.2 GM/dL (10.7-15.3) 11/04/19 05:30 Hct 36.1 % (32.4-45.2) 11/04/19 05:30 MCV 90.6 fl (80-96) 11/04/19 05:30 MCH 30.6 pg (25.7-33.7) 11/04/19 05:30 MCHC 33.7 g/dl (32.0-36.0) 11/04/19 05:30 RDW 13.1 % (11.6-15.6) 11/04/19 05:30 Plt Count 151 K/MM3 (134-434) 11/04/19 05:30 MPV 7.9 fl (7.5-11.1) 11/04/19 05:30 Absolute Neuts (auto) 4.5 K/mm3 (1.5-8.0) 11/04/19 05:30 Neutrophils % 69.4 % (42.8-82.8) 11/04/19 05:30 Lymphocytes % 20.8 % (8-40) D 11/04/19 05:30 Monocytes % 6.1 % (3.8-10.2) 11/04/19 05:30 Eosinophils % 3.4 % (0-4.5) D 11/04/19 05:30 Basophils % 0.3 % (0-2.0) 11/04/19 05:30 Nucleated RBC % 0 % (0-0) 11/04/19 05:30 PT with INR 14.10 SEC (9.7-13.0) H 11/02/19 06:23 INR 1.19 (0.83-1.09) H 11/02/19 06:23 PTT (Actin FS) 29.6 SECONDS (25.2-36.5) 11/02/19 06:23 Anticoagulation Therapy No Result Required. 11/01/19 22:15 Puncture Site Right radial 11/01/19 22:15 Patient Temperature No Result Required. 11/01/19 22:15 ABG pH 7.444 (7.350-7.450) 11/01/19 22:15 ABG pCO2 32.40 mmHg (35-45) L 11/01/19 22:15 ABG pO2 97.3 mmHg (80-100) 11/01/19 22:15 ABG HCO3 21.7 mmol/L (22-27) L 11/01/19 22:15 ABG O2 Sat (Measured) 97.7 mmHg (95-98) 11/01/19 22:15 ABG O2 Content No Result Required. 11/01/19 22:15 ABG Base Excess -1.4 mmol/L (-2-2) 11/01/19 22:15 Kd Test Positive 11/01/19 22:15 VBG pH 7.380 (7.310-7.410) 11/01/19 19:50 POC VBG pCO2 43.2 mmHg (38-52) 11/01/19 19:50 POC VBG pO2 29.1 mmHg (28-48) 11/01/19 19:50 VBG HCO3 25.0 mmol/L (23-29) 11/01/19 19:50 VBG O2 Sat (Corie) 53.8 % (70-80) L 11/01/19 19:50 VBG Base Excess -0.3 mmol/L (-2-2) 11/01/19 19:50 Patient On Oxygen Yes 11/01/19 22:15 O2 Delivery Device No Result Required. 11/01/19 22:15 Oxygen Flow Rate 100 11/01/19 22:15 Vent Mode No Result Required. 11/01/19 22:15 Vent Rate No Result Required. 11/01/19 22:15 Mechanical Rate No Result Required. 11/01/19 22:15 PEEP No Result Required. 11/01/19 22:15 Pressure Support Vent No Result Required. 11/01/19 22:15 Sodium 142 mmol/L (136-145) 11/04/19 05:30 Potassium 3.6 mmol/L (3.5-5.1) 11/04/19 05:30 Chloride 108 mmol/L (98-107) H 11/04/19 05:30 Carbon Dioxide 28 mmol/L (21-32) 11/04/19 05:30 Anion Gap 6 MMOL/L (8-16) L 11/04/19 05:30 BUN 4.0 mg/dL (7-18) L 11/04/19 05:30 Creatinine 0.5 mg/dL (0.55-1.3) L 11/04/19 05:30 Est GFR (CKD-EPI)AfAm 110.50 11/04/19 05:30 Est GFR (CKD-EPI)NonAf 95.34 11/04/19 05:30 Random Glucose 103 mg/dL (74-106) 11/04/19 05:30 Lactic Acid 1.1 mmol/L (0.4-2.0) 11/04/19 05:30 Calcium 8.6 mg/dL (8.5-10.1) 11/04/19 05:30 Phosphorus 2.9 mg/dL (2.5-4.9) 11/04/19 05:30 Magnesium 2.0 mg/dL (1.8-2.4) 11/04/19 05:30 Ferritin 224.8 ng/ml (8-388) 11/01/19 19:50 Total Bilirubin 0.4 mg/dL (0.2-1) 11/03/19 06:38 Direct Bilirubin 0.1 mg/dL (0.0-0.2) 11/01/19 19:50 AST 18 U/L (15-37) 11/03/19 06:38 ALT 14 U/L (13-61) 11/03/19 06:38 Alkaline Phosphatase 63 U/L (45-117) 11/03/19 06:38 LD Total 338 U/L (84-246) H 11/01/19 19:50 Creatine Kinase 78 U/L (26-192) 11/01/19 19:50 Troponin I 0.04 ng/ml (0.00-0.05) 11/01/19 19:50 C-Reactive Protein 1.3 MG/DL (0.00-0.3) H 11/01/19 19:50 Total Protein 5.3 g/dl (6.4-8.2) L 11/03/19 06:38 Albumin 2.2 g/dl (3.4-5.0) L 11/03/19 06:38 Urine Color Yellow 11/01/19 20:00 Urine Appearance Clear 11/01/19 20:00 Urine pH 6.0 (5.0-8.0) 11/01/19 20:00 Ur Specific [place] 1.025 (1.010-1.035) 11/01/19 20:00 Urine Protein 3+ (NEGATIVE) H 11/01/19 20:00 Urine Glucose (UA) Negative (NEGATIVE) 11/01/19 20:00 Urine Ketones 1+ (NEGATIVE) H 11/01/19 20:00 Urine Blood 3+ (NEGATIVE) H 11/01/19 20:00 Urine Nitrite Negative (NEGATIVE) 11/01/19 20:00 Urine Bilirubin Negative (NEGATIVE) 11/01/19 20:00 Urine Urobilinogen 1.0 mg/dL (0.2-1.0) 11/01/19 20:00 Ur Leukocyte Esterase 1+ (NEGATIVE) H 11/01/19 20:00 Urine WBC (Auto) 115 /uL (0-25.8) 11/01/19 20:00 Urine RBC (Auto) 638.1 /uL (0-23.9) 11/01/19 20:00 Urine Casts (Auto) 12 /uL (0-3.1) 11/01/19 20:00 U Epithel Cells (Auto) 35 /uL (0-25.1) 11/01/19 20:00 Urine Bacteria (Auto) 11 /uL (0-1359) 11/01/19 20:00 COVID-19 (IVAN) Not detected (Not Detected) 11/01/19 19:50 Active Medications Acetaminophen (Ofirmev Injection -) 1,000 mg IVPB Q6H PRN PRN Reason: PAIN LEVEL 6-10 Stop: 11/05/19 08:35 Last Admin: 11/04/19 08:40 Dose: 1,000 mg Documented by: Albuterol/Ipratropium (Duoneb -) 1 amp NEB Q6H PRN PRN Reason: SHORTNESS OF BREATH Chlorhexidine Gluconate (Hibiclens For Decolonization -) 1 applic TP [facility] Last Admin: 11/03/19 22:17 Dose: 1 applic Documented by: Heparin Sodium (Porcine) (Heparin -) 5,000 unit SQ Q8H-IV [facility] Last Admin: 11/04/19 09:01 Dose: 5,000 unit Documented by: Piperacillin Sod/Tazobactam (Sod 3.375 gm/ Dextrose) 50 mls @ 100 mls/hr IVPB Q8H-IV [facility]; Protocol Last Admin: 11/04/19 09:00 Dose: 100 mls/hr Documented by: Potassium Chloride/Dextrose/Sod Cl (D5-1/2ns+20 Meq Kcl -) 20 meq in 1,000 mls @ 75 mls/hr IV ASDIR [facility] Last Admin: 11/03/19 10:43 Dose: 75 mls/hr Documented by: Mirtazapine (Remeron -) 15 mg PO [facility] Last Admin: 11/03/19 21:20 Dose: Not Given Documented by: Mupirocin (Bactroban Ointment (For Decolonization) -) 1 applic NS BID [facility] Stop: 11/06/19 22:14 Last Admin: 11/04/19 09:00 Dose: 1 applic Documented by: Risperidone (Risperdal -) 0.5 mg PO [facility] Last Admin: 11/03/19 21:20 Dose: Not Given Documented by: Risperidone (Risperdal -) 0.25 mg PO DAILY [facility] Last Admin: 11/03/19 09:30 Dose: Not Given Documented by: Valproate Sodium (Depacon Injection -) 500 mg IVPB BID [facility] Last Admin: 11/04/19 09:00 Dose: 500 mg Documented by: ASSESSMENT/PLAN: 74 y/o female with PMH of Alzheimers (non-verbal, bedbound at baseline), previous covid 19 diagnosis (back in July), seizures presents to the ED due to shortness of breath after eating oatmeal, to which her reported that he heard gurgling sounds. Admitted to ICU for sepsis secondary to aspiration vs. UTI. Pt is currently hemodynamically stable, saturating well on nasal cannula. Pt is medically optimized for transfer. Neuro Alzheimers Seizure Disorder -c/w home dose Depakote, risperidone, mirtazapine. -c/w valproate. -seizure, aspiration precautions Cardio Normotensive -c/w amlodipine -monitor and maintain MAP >65, if below, resuscitate with IVF. If refractory, will need vasopressors. -IVF Pulm B/l lung infiltrates -ABG shows Ph 7.44 PC02 32 O2 97, likely secondary to aspiration -Saturating well on 3L NC, supplemental oxygen to maintain o2 sat >92% -c/w zosyn -c/w albuterol/ipratropium -CXR show persistent b/l infiltrates -f/u urine culture. Negative Bcx for 48 hrs, urine legionella negative, urine strep pneumo negative. Renal Cr stable -monitor electrolytes and replete. -IVF -UA positive for WBC, RBC, leukocyte esterase, proteins, ketones ID Sepsis likely 2/2 aspiration PNA vs. UTI RLL infiltrate with possible LLL consolidation Lactic acidosis, resolved History of COVID infection -Afebrile today -c/w IV tylenol PRN for fever/pain -c/w zosyn -Follow blood cx, urine cx -ID consulted. Recommended c/w empiric zosyn. -COVID 19 negative FEN -IVF-D5 - 1/2NS + 20mEq KCl -monitor electrolytes -Speech and swallow evaluation done. Pt has impaired swallowing. Keep NPO. PPX -DVT: SQH Family discussion: -Spoke to , Mr. Peña. Signed DNR/DNI. Document in pt's chart. Dispo: Transfer and monitor on floors. Visit type - Emergency Visit Emergency Visit: Yes ED Registration Date: 11/01/19 Care time: The patient presented to the Emergency Department on the above date and was hospitalized for further evaluation of their emergent condition. - New Patient This patient is new to me today: No - Critical Care Critical Care patient: Yes Total Critical Care Time (in minutes): 36 Critical Care Statement: The care of this patient involved high complexity decision making to prevent further life threatening deterioration of the patient's condition and/or to evaluate & treat vital organ system(s) failure or risk of failure. - Medication Review Med list reviewed for High Risk Meds patients 65 and older: Yes ATTENDING PHYSICIAN STATEMENT I saw and evaluated the patient. I reviewed the resident's note and discussed the case with the resident. I agree with the resident's findings and plan as documented. SUBJECTIVE: OBJECTIVE: ASSESSMENT AND PLAN:
[2019-11-04 07:07] LABS: CALCIUM 8.6 mg/dL (8.5-10.1); CREATININE 0.5 mg/dL (0.55-1.3); PHOSPHOROUS 2.9 mg/dL (2.5-4.9); POTASSIUM 3.6 mmol/L (3.5-5.1)
[2019-11-04] MEDS: ACETAMINOPHEN 1000 MG/100 ML VIAL (NON FORMULARY) IVPB PRN (08:40)
[2019-11-04] MEDS: MUPIROCIN 2% TOPICAL OINTMENT FOR DECOLONIZATION NS SCH (09:00)
[2019-11-04] MEDS: VALPROATE SODIUM 500 MG/5 ML VIAL IVPB SCH ×2 (09:00→21:43)
[2019-11-04] MEDS: risperiDONE 0.25 MG TABLET PO SCH (09:17)
[2019-11-04] MEDS ORDERED: amLODIPine BESYLATE 5 MG TABLET (FP) PO SCH (10:00)
--- NOTE | 2019-11-04 10:15 | EKG ---
Test Reason : Blood Pressure : / mmHG Vent. Rate : 147 BPM Atrial Rate : 147 BPM P-R Int : 140 ms QRS Dur : 064 ms QT Int : 210 ms P-R-T Axes : 074 070 -75 degrees QTc Int : 328 ms POOR DATA QUALITY, INTERPRETATION MAY BE ADVERSELY AFFECTED SINUS TACHYCARDIA ABNORMAL ECG WHEN COMPARED WITH ECG OF 08-JUL-2019 21:38, SIGNIFICANT CHANGES HAVE OCCURRED Confirmed by Abrahan Tabarse ([id number]) on 11/04/2019 10:15:50 AM Referred By: Confirmed By:Abrahan Tabares
--- NOTE | 2019-11-04 10:16 | CONSULT ---
Admitting History and Physical - Admission History of Present Illness: Per EMR- The patient is a 74 year old female with a past medical history of Alzheimers (A&Ox0) and seizure disorder who presents to the ED BIBA for difficulty breathing. Patient is bed bound, nonverbal at baseline and is unable to contribute to further history. Per the patient was COVID+ in July 2019. notes the patient is DNR/DNI. states she has had rapid decline since april, has been nonverbal for 3 years, nonambulatory eating less since april. at this point rarely gets out of bed. is at home with him has home health aid during the day. today when he came home from work, she was with the day time home health aid, and was choking on her oatmeal. he heard gurgling noises, so he lifted her out of bed, and put her on his bed rolled him over to help her spit up the food she was choking on. then called ambulance, on EMS arrival, pt oxygen saturation was in the 80s on RA. Pt in ICU for sepsis secondary to aspiration pneumonia and UTI. Laboratory Tests 11/01/19 11/02/19 11/04/19 19:50 06:23 05:30 WBC 6.5 RBC 3.98 Hgb 12.2 PT with INR 14.10 H COVID-19 (IVAN) Not detected 11/01 CXR persistent bilateral infuiltrates NPO This is my first time seeing this pt. Pt nonverbal, cared for aT HOME BY PT'S . fULL CODE. History Source: Medical Record Limitations to Obtaining History: Clinical Condition, Dementia - Past Medical History ACID MIXER: Yes: Alzheimer's, Dementia (uncooperative and unable to communicate intelligibly.) Hepatobiliary: Yes: Cholecystitis - Past Surgical History Past Surgical History: Yes: Cholecystectomy - Smoking History Smoking history: Never smoked Have you smoked in the past 12 months: No - Alcohol/Substance Use Hx Alcohol Use: No - Social History ADL: Support Services History of Recent Travel: No History - Admission Reason For Visit: HYPOXIA,SEPSIS,PNEUMONIA - Diagnostics X-ray: Report Reviewed - General Mental Status: Confused, Flat Affect, Lethargic Attention: Severe Impairment Ability to Follow Directions: Poor - Hearing Hearing: Normal Speech Evaluation - Communication Primary Language: MOHAW[place] Communication: Yes: Non-Communicable - Language/Auditory Comprehension Observation: Able to respond to yes/no queries: No - Swallow Evaluation/Bedside Assessment Current Nutritional Intake: NPO, Other (meds crushed, given in applesauce. Nursing feels pt not tolerating consistently this am.) Facial Symmetry at Rest: Symmetrical Jaw Position: Open at Rest Recommendations - Speech Evaluation, Impression/Plan Impression: Sleepy after Respiradol today, per nursing. Severe Dementia, non communicative, open mouth posture. Re-evaluation of PO trial not attempted due to lethargy, aspiration risk. Last CXR noted. High aspiration risk at present. Was there an acute change in swallowing function, resulting in admission? Pt is full code. Goals of care? Family's end of life wishes? TF? - Disposition Discharge to: To be Determined - Dysphagia Impressions/Plan Swallowing Skills: Impaired Dysphagia Impressions: Severe Impairment, Ongoing Evaluation *Silent aspiration: cannot be R/O at bedside Recommendations: Palliative Care (NGT/PEG? end of life wishes?) - Recommendations Diet Consistency: NPO Liquids: NPO
--- NOTE | 2019-11-04 11:14 | PN ---
Physical Exam: SUBJECTIVE: Patient seen and examined. No acute events overnight. OBJECTIVE: Vital Signs Temperature 99.3 F 11/04/19 08:35 Pulse Rate 88 11/04/19 09:00 Respiratory Rate 20 11/04/19 09:00 Blood Pressure 158/114 H 11/04/19 09:00 O2 Sat by Pulse Oximetry (%) 100 11/04/19 08:48 GENERAL: The patient is awake, alert, and nonverbal (at baseline). NECK: supple. LUNGS: Decreased breath sounds on bilateral bases HEART: Regular rate and rhythm, S1, S2 ABDOMEN: Soft, nontender, nondistended, normoactive bowel sounds EXTREMITIES: 2+ pulses, warm, well-perfused, no edema. SKIN: Warm, dry, normal turgor Laboratory Results - last 24 hr 11/01/19 11/04/19 11/04/19 19:50 05:30 05:30 WBC 6.5 RBC 3.98 Hgb 12.2 Hct 36.1 MCV 90.6 MCH 30.6 MCHC 33.7 RDW 13.1 Plt Count 151 MPV 7.9 Absolute Neuts (auto) 4.5 Neutrophils % 69.4 Lymphocytes % 20.8 D Monocytes % 6.1 Eosinophils % 3.4 D Basophils % 0.3 Nucleated RBC % 0 Sodium 142 Potassium 3.6 Chloride 108 H Carbon Dioxide 28 Anion Gap 6 L BUN 4.0 L Creatinine 0.5 L Est GFR (CKD-EPI)AfAm 110.50 Est GFR (CKD-EPI)NonAf 95.34 Random Glucose 103 Lactic Acid Calcium 8.6 Phosphorus 2.9 Magnesium 2.0 COVID-19 (IVAN) Not detected 11/04/19 05:30 WBC RBC Hgb Hct MCV MCH MCHC RDW Plt Count MPV Absolute Neuts (auto) Neutrophils % Lymphocytes % Monocytes % Eosinophils % Basophils % Nucleated RBC % Sodium Potassium Chloride Carbon Dioxide Anion Gap BUN Creatinine Est GFR (CKD-EPI)AfAm Est GFR (CKD-EPI)NonAf Random Glucose Lactic Acid 1.1 Calcium Phosphorus Magnesium COVID-19 (IVAN) Active Medications Generic Name Dose Route Start Last Admin Trade Name Freq PRN Reason Stop Dose Admin Acetaminophen 1,000 mg 11/04/19 08:35 11/04/19 08:40 Ofirmev Injection - IVPB 11/05/19 08:35 1,000 mg Q6H PRN Administration PAIN LEVEL 6-10 Albuterol/Ipratropium 1 amp 11/01/19 23:48 Duoneb - NEB Q6H PRN SHORTNESS OF BREATH Amlodipine Besylate 5 mg 11/04/19 10:00 11/04/19 09:22 Norvasc - PO 5 mg DAILY [facility] Administration Chlorhexidine Gluconate 1 applic 11/02/19 22:00 11/03/19 22:17 Hibiclens For Decolonization - TP 1 applic HS [facility] Administration Heparin Sodium (Porcine) 5,000 unit 11/02/19 02:00 11/04/19 09:01 Heparin - SQ 5,000 unit Q8H-IV [facility] Administration Piperacillin Sod/Tazobactam 50 mls @ 100 mls/hr 11/02/19 18:00 11/04/19 09:00 Sod 3.375 gm/ Dextrose IVPB 100 mls/hr Q8H-IV [facility] Administration Protocol Potassium Chloride/Dextrose/Sod Cl 20 meq in 1,000 mls @ 75 mls/hr 11/03/19 10:30 11/03/19 10:43 D5-1/2ns+20 Meq Kcl - IV 75 mls/hr ASDIR [facility] Administration Mirtazapine 15 mg 11/02/19 22:00 11/03/19 21:20 Remeron - PO Not Given HS [facility] Mupirocin 1 applic 11/01/19 22:15 11/04/19 09:00 Bactroban Ointment (For Decolonization) - NS 11/06/19 22:14 1 applic BID [facility] Administration Risperidone 0.5 mg 11/02/19 22:00 11/03/19 21:20 Risperdal - PO Not Given HS [facility] Risperidone 0.25 mg 11/02/19 10:00 11/04/19 09:17 Risperdal - PO 0.25 mg DAILY [facility] Administration Valproate Sodium 500 mg 11/02/19 10:00 11/04/19 09:00 Depacon Injection - IVPB 500 mg BID [facility] Administration ASSESSMENT/PLAN: Patient is a 74 yo F with PMH Alzheimer's (nonverbal and bedbound at baseline), seizure disorders, previous COVID 19 diagnosis (07/2019), presented to the ED with SOB and admitted to ICU for sepsis secondary to aspiration PNA and UTI. Pt weaned to NC 4L and saturating at 97%. Pt is afebrile, hemodynamically stable and saturating well, subsequently transferred to medical floor. #Sepsis likely 2/2 PNA possibly aspiration and UTI, improving #Acute hypoxic respiratory failure 2/2 pneumonia -Blood cultures, urine legionella,pna negative -urine cx no growth -lactic acidosis resolved -covid negative -continue empiric IV zosyn -supplemental O2 to keep SpO2>90% -aspiration precautions -speech and swallow consulted. -ID (Dr. Masterson) consulted. REcommendations appreciated -Pulm consulted. Recommendations appreciated. #HTN -BP elevated -Amlodipine 5mg daily started -will continue to monitor #Hx of Alzheimer's #Hx of seizure disorder -will continue Depacon IV 500 BID -continue Mirtazapine and Risperidone -seizure precautions #FEN -IV D5-1/2NS @75cc/hr -Electrolytes wnl, routine bmp monitoring -NPO pending s/s recs #Prophylaxis -Heparin 5000u sq tid #Dispo -DNR/DNI -may continue monitoring on med-surg floors Visit type - Emergency Visit Emergency Visit: Yes ED Registration Date: 11/01/19 Care time: The patient presented to the Emergency Department on the above date and was hospitalized for further evaluation of their emergent condition. - New Patient This patient is new to me today: Yes Date on this admission: 11/04/19 - Critical Care Critical Care patient: No - Medication Review Med list reviewed for High Risk Meds patients 65 and older: Yes ATTENDING PHYSICIAN STATEMENT I saw and evaluated the patient. I reviewed the resident's note and discussed the case with the resident. I agree with the resident's findings and plan as documented. SUBJECTIVE: OBJECTIVE: ASSESSMENT AND PLAN:
--- NOTE | 2019-11-04 11:53 | PN ---
Progress Note, Physician Chief Complaint: AWAKE, NOT VERBALLY RESPONSIVE NO ACUTE DISTRESS BREATHING NON LABORED AFEBRILE WBC WNL CULTURES NO GROWTH - Current Medication List Current Medications: Active Medications Acetaminophen (Ofirmev Injection -) 1,000 mg IVPB Q6H PRN PRN Reason: PAIN LEVEL 6-10 Stop: 11/05/19 08:35 Last Admin: 11/04/19 08:40 Dose: 1,000 mg Documented by: Albuterol/Ipratropium (Duoneb -) 1 amp NEB Q6H PRN PRN Reason: SHORTNESS OF BREATH Amlodipine Besylate (Norvasc -) 5 mg PO DAILY [facility] Last Admin: 11/04/19 09:22 Dose: 5 mg Documented by: Chlorhexidine Gluconate (Hibiclens For Decolonization -) 1 applic TP [facility] Last Admin: 11/03/19 22:17 Dose: 1 applic Documented by: Heparin Sodium (Porcine) (Heparin -) 5,000 unit SQ Q8H-IV [facility] Last Admin: 11/04/19 09:01 Dose: 5,000 unit Documented by: Piperacillin Sod/Tazobactam (Sod 3.375 gm/ Dextrose) 50 mls @ 100 mls/hr IVPB Q8H-IV [facility]; Protocol Last Admin: 11/04/19 09:00 Dose: 100 mls/hr Documented by: Potassium Chloride/Dextrose/Sod Cl (D5-1/2ns+20 Meq Kcl -) 20 meq in 1,000 mls @ 75 mls/hr IV ASDIR [facility] Last Admin: 11/03/19 10:43 Dose: 75 mls/hr Documented by: Mirtazapine (Remeron -) 15 mg PO [facility] Last Admin: 11/03/19 21:20 Dose: Not Given Documented by: Mupirocin (Bactroban Ointment (For Decolonization) -) 1 applic NS BID [facility] Stop: 11/06/19 22:14 Last Admin: 11/04/19 09:00 Dose: 1 applic Documented by: Risperidone (Risperdal -) 0.5 mg PO [facility] Last Admin: 11/03/19 21:20 Dose: Not Given Documented by: Risperidone (Risperdal -) 0.25 mg PO DAILY [facility] Last Admin: 11/04/19 09:17 Dose: 0.25 mg Documented by: Valproate Sodium (Depacon Injection -) 500 mg IVPB BID [facility] Last Admin: 11/04/19 09:00 Dose: 500 mg Documented by: - Objective Vital Signs: Vital Signs Temperature 99.3 F 11/04/19 08:35 Pulse Rate 80 11/04/19 11:33 Respiratory Rate 20 11/04/19 09:00 Blood Pressure 123/74 11/04/19 11:18 O2 Sat by Pulse Oximetry (%) 98 11/04/19 11:33 Constitutional: Yes: No Distress Eyes: Yes: Conjunctiva Clear Cardiovascular: Yes: Regular Rate and Rhythm, S1, S2 Respiratory: Yes: Diminished Gastrointestinal: Yes: Normal Bowel Sounds, Soft. No: Tenderness Edema: No Labs: CBC, BMP 11/04/19 05:30 11/04/19 05:30 INR, PTT INR 1.19 (0.83-1.09) H 11/02/19 06:23 Assessment/Plan PROBABLE ASP PNEUMONIA R/O SEPSIS SECONDARY TO PNEUMONIA UTI LACTIC ACIDOSIS RESOLVED OBS CONTINUE EMPIRIC ZOSYN
--- NOTE | 2019-11-04 12:45 | PN ---
Teaching Attending Note Name of Resident: Jelly Gallardo ATTENDING PHYSICIAN STATEMENT I saw and evaluated the patient. I reviewed the resident's note and discussed the case with the resident. I agree with the resident's findings and plan as documented. SUBJECTIVE: Pt seen and examined in the ICU. Pt nonverbal. No pressors. Saturating well on nasal cannula. OBJECTIVE: Vital Signs Period Temp Pulse Resp BP Sys/Dubon Pulse Ox Last 24 Hr 97.6 F-99.4 F 62-116 13-24 81-170/48-122 97-100 Intake & Output 11/01/19 11/02/19 11/03/19 11/04/19 23:59 23:59 23:59 23:59 Intake Total 2800 1550 3437.5 200 Output Total 200 7618 749 6975 Balance 2600 375 2937.5 -1000 Weight 53 kg 52.617 kg Gen: NAD at rest Heart: RRR Lung: decreased breath sounds at the bases Abd: soft, nontender Ext: no edema CBC, BMP 11/04/19 05:30 11/04/19 05:30 Active Medications Acetaminophen (Ofirmev Injection -) 1,000 mg IVPB Q6H PRN PRN Reason: PAIN LEVEL 6-10 Stop: 11/05/19 08:35 Last Admin: 11/04/19 08:40 Dose: 1,000 mg Documented by: Albuterol/Ipratropium (Duoneb -) 1 amp NEB Q6H PRN PRN Reason: SHORTNESS OF BREATH Amlodipine Besylate (Norvasc -) 5 mg PO DAILY [facility] Last Admin: 11/04/19 09:22 Dose: 5 mg Documented by: Chlorhexidine Gluconate (Hibiclens For Decolonization -) 1 applic TP [facility] Last Admin: 11/03/19 22:17 Dose: 1 applic Documented by: Heparin Sodium (Porcine) (Heparin -) 5,000 unit SQ Q8H-IV [facility] Last Admin: 11/04/19 09:01 Dose: 5,000 unit Documented by: Piperacillin Sod/Tazobactam (Sod 3.375 gm/ Dextrose) 50 mls @ 100 mls/hr IVPB Q8H-IV [facility]; Protocol Last Admin: 11/04/19 09:00 Dose: 100 mls/hr Documented by: Potassium Chloride/Dextrose/Sod Cl (D5-1/2ns+20 Meq Kcl -) 20 meq in 1,000 mls @ 75 mls/hr IV ASDIR [facility] Last Admin: 11/03/19 10:43 Dose: 75 mls/hr Documented by: Mirtazapine (Remeron -) 15 mg PO HS [facility] Last Admin: 11/03/19 21:20 Dose: Not Given Documented by: Mupirocin (Bactroban Ointment (For Decolonization) -) 1 applic NS BID [facility] Stop: 11/06/19 22:14 Last Admin: 11/04/19 09:00 Dose: 1 applic Documented by: Risperidone (Risperdal -) 0.5 mg PO [facility] Last Admin: 11/03/19 21:20 Dose: Not Given Documented by: Risperidone (Risperdal -) 0.25 mg PO DAILY [facility] Last Admin: 11/04/19 09:17 Dose: 0.25 mg Documented by: Valproate Sodium (Depacon Injection -) 500 mg IVPB BID [facility] Last Admin: 11/04/19 09:00 Dose: 500 mg Documented by: ASSESSMENT AND PLAN: Pneumonia likely Aspiration UTI Sepsis Lactic Acidosis Seizure Disorder h/o COVID19 Dementia - continue antibiotics - O2 to keep SpO2 >90% - IVF - monitor urine output, creatinine - aspiration precautions - DVT prophylaxis - can monitor on floor
[2019-11-04] MEDS: D5-1/2NS+20 MEQ KCL - 20 MEQ/1,000 ML INFUS.BAG IV SCH ×2 (14:59→18:28)
[2019-11-04] MEDS ORDERED: ALBUTEROL SO4 2.5/IPRATROPIUM 0.5 INH SOL 3 ML VIAL.NEB. NEB PRN (16:44)
[2019-11-04] MEDS ORDERED: PT OWN MED DRAWER 7, Y5N ONE ×2 (21:31→21:35)
[2019-11-04] MEDS: MIRTAZAPINE 15 MG TABLET (FP) PO SCH (21:43)
[2019-11-04] MEDS: risperiDONE 0.5 MG TABLET PO SCH (21:43)
[2019-11-04] MEDS ORDERED: CHLORHEXIDINE GLUCONATE 4% CLEANSER FOR DECOLONIZATION TP SCH (22:00)
[2019-11-04] MEDS ORDERED: MUPIROCIN 2% TOPICAL OINTMENT FOR DECOLONIZATION NS SCH (22:00)
[2019-11-05] MEDS ORDERED: PIPERACILLIN/TAZOBACTAM 3.375 GM VIAL IVPB ONE ×3 (00:58→17:07)
[2019-11-05] MEDS ORDERED: DEXTROSE 5%-WATER - 50 ML IVPB ONE ×3 (00:58→17:07)
[2019-11-05] MEDS: PIPERACILLIN/TAZOB 3.375 GM 3.375 GM in DEXTROSE 5%-WATER - 50 ML IVPB SCH ×3 (01:00→17:17)
[2019-11-05] MEDS: HEPARIN NA (PORCINE) 5,000 UNITS/ML 1ML VIAL SQ SCH ×3 (05:07→21:48)
[2019-11-05] MEDS: ACETAMINOPHEN 1000 MG/100 ML VIAL (NON FORMULARY) IVPB PRN (05:15)
[2019-11-05 08:04] LABS: BASO % 0.3 % (0-2.0); EOS % 3.8 % (0-4.5); HEMATOCRIT 35.9 % (32.4-45.2); MCH 30.2 pg (25.7-33.7); MCHC 33.5 g/dl (32.0-36.0); MEAN CELL VOLUME 90.2 fl (80-96); MEAN PLT VOLUME 7.9 fl (7.5-11.1); NEUT % 60.9 % (42.8-82.8); PLATELET COUNT 153 K/MM3 (134-434); RBC 3.98 M/mm3 (3.60-5.2); RDW 13.1 % (11.6-15.6)
[2019-11-05 08:41] LABS: ALBUMIN 2.2 g/dl (3.4-5.0); BILIRUBIN,TOTAL 0.3 mg/dL (0.2-1); CALCIUM 8.8 mg/dL (8.5-10.1); CREATININE 0.5 mg/dL (0.55-1.3); MAGNESIUM 2.1 mg/dL (1.8-2.4); POTASSIUM 3.4 mmol/L (3.5-5.1); TOT PROT 5.4 g/dl (6.4-8.2)
[2019-11-05] MEDS ORDERED: PT OWN MED DRAWER 7, Y5N ONE ×2 (08:53→20:54)
[2019-11-05 08:56] LABS: BLOOD UREA NITROGEN 2.3 mg/dL (7-18)
[2019-11-05] MEDS: D5-1/2NS+20 MEQ KCL - 20 MEQ/1,000 ML INFUS.BAG IV SCH ×2 (09:20→11:04)
[2019-11-05] MEDS: VALPROATE SODIUM 500 MG/5 ML VIAL IVPB SCH ×2 (10:59→21:48)
[2019-11-05] MEDS: risperiDONE 0.25 MG TABLET PO SCH (11:03)
--- NOTE | 2019-11-05 11:30 | PN ---
Progress Note, TAB CUTTER - Note Progress Note: Selected Entries 11/04/19 11/05/19 11/05/19 08:56 01:47 06:00 Breakfast NPO Temperature 99.6 F 98.5 F Pulse Rate 101 H 87 Blood Pressure 116/56 L 126/88 11/05/19 09:30 Breakfast Temperature 97.7 F Pulse Rate 82 Blood Pressure 142/75 Laboratory Tests 11/05/19 07:16 WBC 5.0 Performance unchanged. Not communicative, open mouth posture. No functional swallow. Seen by Palliative care-Pt is DNR/DNI.Recurrent aspirations PNA, progression of dementia Plan is home with hospice and referral was sent yesterday to [facility]
--- NOTE | 2019-11-05 12:14 | PN ---
Teaching Attending Note Name of Resident: Estefani Fraga ATTENDING PHYSICIAN STATEMENT I saw and evaluated the patient. I reviewed the resident's note and discussed the case with the resident. I agree with the resident's findings and plan as documented. SUBJECTIVE: pt seen and examined at bedside OBJECTIVE: Last Vital Signs Temp Pulse Resp BP Pulse Ox 97.7 F 82 18 142/75 95 11/05/19 09:30 11/05/19 09:30 11/05/19 09:30 11/05/19 09:30 11/05/19 09:30 GENERAL: Awake, alert, and fully oriented, in no acute distress. HEENT: AT/NC, not pale, cynaosed or jaundiced, neck supple no JVD. LUNGS: Breath sounds equal, clear to auscultation bilaterally. No wheezes, and no crackles. No accessory muscle use. HEART: Regular rate and rhythm, normal S1 and S2 without murmur, rub or gallop. ABDOMEN: Soft, nontender, not distended, normoactive bowel sounds, no guarding, no rebound, no masses. No hepatomegaly or splenomegaly. MUSCULOSKELETAL: Normal range of motion at all joints. No bony deformities or tenderness. No CVA tenderness. UPPER EXTREMITIES: 2+ pulses, warm, well-perfused. No cyanosis. No clubbing. No peripheral edema. LOWER EXTREMITIES: 2+ pulses, warm, well-perfused. No calf tenderness. No peripheral edema. NEUROLOGICAL: aphasia, not cooperating with neuroexam SKIN: Warm, dry, normal turgor, no rashes or lesions noted, normal capillary refill. CBCD WBC 5.0 K/mm3 (4.0-10.0) 11/05/19 07:16 RBC 3.98 M/mm3 (3.60-5.2) 11/05/19 07:16 Hgb 12.0 GM/dL (10.7-15.3) 11/05/19 07:16 Hct 35.9 % (32.4-45.2) 11/05/19 07:16 MCV 90.2 fl (80-96) 11/05/19 07:16 MCHC 33.5 g/dl (32.0-36.0) 11/05/19 07:16 RDW 13.1 % (11.6-15.6) 11/05/19 07:16 Plt Count 153 K/MM3 (134-434) 11/05/19 07:16 MPV 7.9 fl (7.5-11.1) 11/05/19 07:16 CMP Sodium 143 mmol/L (136-145) 11/05/19 07:16 Potassium 3.4 mmol/L (3.5-5.1) L 11/05/19 07:16 Chloride 108 mmol/L (98-107) H 11/05/19 07:16 Carbon Dioxide 26 mmol/L (21-32) 11/05/19 07:16 Anion Gap 9 MMOL/L (8-16) 11/05/19 07:16 BUN 2.3 mg/dL (7-18) L* 11/05/19 07:16 Creatinine 0.5 mg/dL (0.55-1.3) L 11/05/19 07:16 Calcium 8.8 mg/dL (8.5-10.1) 11/05/19 07:16 Total Bilirubin 0.3 mg/dL (0.2-1) 11/05/19 07:16 AST 18 U/L (15-37) 11/05/19 07:16 ALT 13 U/L (13-61) 11/05/19 07:16 Alkaline Phosphatase 74 U/L (45-117) 11/05/19 07:16 Total Protein 5.4 g/dl (6.4-8.2) L 11/05/19 07:16 Albumin 2.2 g/dl (3.4-5.0) L 11/05/19 07:16 Current Medications Generic Name Dose Route Start Last Admin Trade Name Ectorq PRN Reason Stop Dose Admin Albuterol/Ipratropium 1 amp 11/04/19 16:44 Duoneb - NEB Q6H PRN SHORTNESS OF BREATH Amlodipine Besylate 5 mg 11/04/19 10:00 11/04/19 09:22 Norvasc - PO 5 mg DAILY VALE Administration Heparin Sodium (Porcine) 5,000 unit 11/04/19 22:00 11/05/19 05:07 Heparin - SQ 5,000 unit TID VALE Administration Piperacillin Sod/Tazobactam 50 mls @ 100 mls/hr 11/02/19 18:00 11/05/19 09:19 Sod 3.375 gm/ Dextrose IVPB 100 mls/hr Q8H-IV VALE Administration Protocol Potassium Chloride/Dextrose/Sod Cl 20 meq in 1,000 mls @ 75 mls/hr 11/03/19 10:30 11/05/19 11:04 D5-1/2ns+20 Meq Kcl - IV Not Given ASDIR VALE Potassium Chloride 10 meq in 100 mls @ 100 mls/hr 11/05/19 12:00 Potassium Chloride 10 Meq Premix Ivpb - IVPB 11/05/19 13:59 Q60M VALE Mirtazapine 15 mg 11/04/19 22:00 11/04/19 21:43 Remeron - PO 15 mg HS VALE Administration Risperidone 0.5 mg 11/04/19 22:00 11/04/19 21:43 Risperdal - PO 0.5 mg HS VALE Administration Risperidone 0.25 mg 11/05/19 10:00 11/05/19 11:03 Risperdal - PO 0.25 mg DAILY VALE Administration Valproate Sodium 500 mg 11/04/19 22:00 11/05/19 10:59 Depacon Injection - IVPB 500 mg BID VALE Administration ASSESSMENT AND PLAN: 74 YO lady with Mx of Alzheimers (non-verbal, bedbound at baseline), previous covid 19, seizures disorder presents to the ED due to shortness of breath after eating oatmeal, to which her reported that he heard gurgling sounds. Admitted to ICU for sepsis secondary to aspiration vs. UTI. # Sepsis due to Aspiration Pneumonia - Lactic Acidosis resolved - failed speech and swallow - afebrile, no WBC, negative cultures - Abx for 5 days total - aspiration precaution, seizure precautions Seizure Disorder h/o COVID19 Dementia DNR/DNI DVT prophylaxis Plan Seen by Palliative care. for home with hospice and referral was sent yesterday to [facility]
[2019-11-05] MEDS: KCL 10 MEQ IVPB 10 MEQ/100 ML INFUS.BAG IVPB SCH ×2 (12:18→13:45)
--- NOTE | 2019-11-05 12:50 | PN ---
Progress Note (short form) - Note Progress Note: Lethargic but arousbale. Non-verbal. Breathing non-labored on NC O2. No acute events overnight. Intake & Output 11/02/19 11/03/19 11/04/19 11/05/19 23:59 23:59 23:59 23:59 Intake Total 1550 3437.5 950 1050 Output Total 7048 844 5474 1250 Balance 375 2937.5 -1850 -200 Weight 116 lb Last Vital Signs Temp Pulse Resp BP Pulse Ox 97.7 F 82 18 142/75 95 11/05/19 09:30 11/05/19 09:30 11/05/19 09:30 11/05/19 09:30 11/05/19 09:30 Active Medications Albuterol/Ipratropium (Duoneb -) 1 amp NEB Q6H PRN PRN Reason: SHORTNESS OF BREATH Amlodipine Besylate (Norvasc -) 5 mg PO DAILY [facility] Last Admin: 11/04/19 09:22 Dose: 5 mg Documented by: Heparin Sodium (Porcine) (Heparin -) 5,000 unit SQ TID [facility] Last Admin: 11/05/19 05:07 Dose: 5,000 unit Documented by: Piperacillin Sod/Tazobactam (Sod 3.375 gm/ Dextrose) 50 mls @ 100 mls/hr IVPB Q8H-IV VALE; Protocol Last Admin: 11/05/19 09:19 Dose: 100 mls/hr Documented by: Potassium Chloride/Dextrose/Sod Cl (D5-1/2ns+20 Meq Kcl -) 20 meq in 1,000 mls @ 75 mls/hr IV ASDIR [facility] Last Admin: 11/05/19 11:04 Dose: Not Given Documented by: Potassium Chloride (Potassium Chloride 10 Meq Premix Ivpb -) 10 meq in 100 mls @ 100 mls/hr IVPB Q60M [facility] Stop: 11/05/19 13:59 Last Admin: 11/05/19 12:18 Dose: 100 mls/hr Documented by: Mirtazapine (Remeron -) [address] [facility] Last Admin: 11/04/19 21:43 Dose: 15 mg Documented by: Risperidone (Risperdal -) 0.[address] [facility] Last Admin: 11/04/19 21:43 Dose: 0.5 mg Documented by: Risperidone (Risperdal -) 0.25 mg PO DAILY [facility] Last Admin: 11/05/19 11:03 Dose: 0.25 mg Documented by: Valproate Sodium (Depacon Injection -) 500 mg IVPB BID [facility] Last Admin: 11/05/19 10:59 Dose: 500 mg Documented by: Gen: NAD at rest Heart: RRR Lung: decreased breath sounds at the bases Abd: soft, nontender Ext: no edema Laboratory Results - last 24 hr 11/05/19 11/05/19 07:16 07:16 WBC 5.0 RBC 3.98 Hgb 12.0 Hct 35.9 MCV 90.2 MCH 30.2 MCHC 33.5 RDW 13.1 Plt Count 153 MPV 7.9 Absolute Neuts (auto) 3.1 Neutrophils % 60.9 Lymphocytes % 28.0 D Monocytes % 7.0 Eosinophils % 3.8 Basophils % 0.3 Nucleated RBC % 0 Sodium 143 Potassium 3.4 L Chloride 108 H Carbon Dioxide 26 Anion Gap 9 BUN 2.3 L* Creatinine 0.5 L Est GFR (CKD-EPI)AfAm 110.50 Est GFR (CKD-EPI)NonAf 95.34 Random Glucose 109 H Calcium 8.8 Phosphorus 3.0 Magnesium 2.1 Total Bilirubin 0.3 AST 18 ALT 13 Alkaline Phosphatase 74 Total Protein 5.4 L Albumin 2.2 L ASSESSMENT AND PLAN: Pneumonia likely Aspiration UTI Sepsis Lactic Acidosis Seizure Disorder h/o COVID19 Dementia - continue antibiotics per ID - O2 to keep SpO2 >90% - aspiration precautions - VTE prophylaxis Dr Carpenter
--- NOTE | 2019-11-05 13:25 | PN ---
Physical Exam: SUBJECTIVE: Patient seen and examined OBJECTIVE: Vital Signs Temperature 97.7 F 11/05/19 09:30 Pulse Rate 82 11/05/19 09:30 Respiratory Rate 18 11/05/19 09:30 Blood Pressure 142/75 11/05/19 09:30 O2 Sat by Pulse Oximetry (%) 95 11/05/19 09:30 GENERAL: The patient is awake, alert, and nonverbal (at baseline). NECK: supple. LUNGS: Decreased breath sounds on bilateral bases HEART: Regular rate and rhythm, S1, S2 ABDOMEN: Soft, nontender, nondistended, normoactive bowel sounds EXTREMITIES: 2+ pulses, warm, well-perfused, no edema. SKIN: Warm, dry, normal turgor Laboratory Results - last 24 hr 11/05/19 11/05/19 07:16 07:16 WBC 5.0 RBC 3.98 Hgb 12.0 Hct 35.9 MCV 90.2 MCH 30.2 MCHC 33.5 RDW 13.1 Plt Count 153 MPV 7.9 Absolute Neuts (auto) 3.1 Neutrophils % 60.9 Lymphocytes % 28.0 D Monocytes % 7.0 Eosinophils % 3.8 Basophils % 0.3 Nucleated RBC % 0 Sodium 143 Potassium 3.4 L Chloride 108 H Carbon Dioxide 26 Anion Gap 9 BUN 2.3 L* Creatinine 0.5 L Est GFR (CKD-EPI)AfAm 110.50 Est GFR (CKD-EPI)NonAf 95.34 Random Glucose 109 H Calcium 8.8 Phosphorus 3.0 Magnesium 2.1 Total Bilirubin 0.3 AST 18 ALT 13 Alkaline Phosphatase 74 Total Protein 5.4 L Albumin 2.2 L Active Medications Generic Name Dose Route Start Last Admin Trade Name Freq PRN Reason Stop Dose Admin Albuterol/Ipratropium 1 amp 11/04/19 16:44 Duoneb - NEB Q6H PRN SHORTNESS OF BREATH Amlodipine Besylate 5 mg 11/04/19 10:00 11/04/19 09:22 Norvasc - PO 5 mg DAILY VALE Administration Heparin Sodium (Porcine) 5,000 unit 11/04/19 22:00 11/05/19 05:07 Heparin - SQ 5,000 unit TID VALE Administration Piperacillin Sod/Tazobactam 50 mls @ 100 mls/hr 11/02/19 18:00 11/05/19 09:19 Sod 3.375 gm/ Dextrose IVPB 100 mls/hr Q8H-IV VALE Administration Protocol Potassium Chloride/Dextrose/Sod Cl 20 meq in 1,000 mls @ 75 mls/hr 11/03/19 10:30 11/05/19 11:04 D5-1/2ns+20 Meq Kcl - IV Not Given ASDIR VALE Potassium Chloride 10 meq in 100 mls @ 100 mls/hr 11/05/19 12:00 11/05/19 12:18 Potassium Chloride 10 Meq Premix Ivpb - IVPB 11/05/19 13:59 100 mls/hr Q60M VALE Administration Mirtazapine 15 mg 11/04/19 22:00 11/04/19 21:43 Remeron - PO 15 mg HS VALE Administration Risperidone 0.5 mg 11/04/19 22:00 11/04/19 21:43 Risperdal - PO 0.5 mg HS VALE Administration Risperidone 0.25 mg 11/05/19 10:00 11/05/19 11:03 Risperdal - PO 0.25 mg DAILY VALE Administration Valproate Sodium 500 mg 11/04/19 22:00 11/05/19 10:59 Depacon Injection - IVPB 500 mg BID VALE Administration ASSESSMENT/PLAN: Patient is a 74 yo F with PMH Alzheimer's (nonverbal and bedbound at baseline), seizure disorders, previous COVID 19 diagnosis (07/2019), presented to the ED with SOB and admitted to ICU for sepsis secondary to aspiration PNA and UTI. Pt weaned to NC 4L and saturating at 97%. Pt is afebrile, hemodynamically stable and saturating well, subsequently transferred to medical floor. #Sepsis likely 2/2 PNA possibly aspiration and UTI, improved #Acute hypoxic respiratory failure 2/2 pneumonia -Blood cultures, urine legionella,pna negative -urine cx no growth -lactic acidosis resolved -covid negative -continue empiric IV zosyn -supplemental O2 to keep SpO2>90% -aspiration precautions -speech and swallow consulted. -ID (Dr. Masterson) consulted. REcommendations appreciated -Pulm consulted. Recommendations appreciated. #Elevated blood pressure -BP elevated yesterday -Amlodipine 5mg daily given -BP stable today, will continue to monitor #Hx of Alzheimer's #Hx of seizure disorder -will continue Depacon IV 500mg BID -continue Mirtazapine and Risperidone -seizure precautions #FEN -IV D5-1/2NS @75cc/hr -Electrolytes wnl, routine bmp monitoring -NPO #Prophylaxis -Heparin 5000u sq tid #Dispo -DNR/DNI -awaiting home hospice care arrangement -as per , no plan for peg tube at this time Visit type - Emergency Visit Emergency Visit: Yes ED Registration Date: 11/01/19 Care time: The patient presented to the Emergency Department on the above date and was hospitalized for further evaluation of their emergent condition. - New Patient This patient is new to me today: No - Critical Care Critical Care patient: No - Medication Review Med list reviewed for High Risk Meds patients 65 and older: Yes ATTENDING PHYSICIAN STATEMENT I saw and evaluated the patient. I reviewed the resident's note and discussed the case with the resident. I agree with the resident's findings and plan as documented. SUBJECTIVE: OBJECTIVE: ASSESSMENT AND PLAN:
--- NOTE | 2019-11-05 15:44 | PN ---
Teaching Attending Note Name of Resident: Estefani Fraga ATTENDING PHYSICIAN STATEMENT I saw and evaluated the patient. I reviewed the resident's note and discussed the case with the resident. I agree with the resident's findings and plan as documented. SUBJECTIVE: Patient seen and examined at bedside, admitted for septic shock 2/2 aspiration PNA, now improving, VSS. OBJECTIVE: GENERAL: Awake, alert, non-verbal (baseline), NAD HEENT NC/AT, EOMI, neck supple, dry MM LUNGS: Decreased breath sounds on bilateral bases HEART: Regular rate and rhythm, S1, S2 ABDOMEN: Soft, nontender, nondistended, normoactive bowel sounds EXTREMITIES: 2+ pulses, warm, well-perfused, no edema. SKIN: Warm, dry, normal turgor Vital Signs (72 hours) 11/02/19 11/02/19 11/02/19 16:00 18:00 20:00 Temperature 97.2 F L 97.0 F L Pulse Rate 90 88 87 Respiratory 23 H 24 H 27 H Rate Blood Pressure 100/53 L 102/67 109/81 O2 Sat by Pulse 96 97 93 L Oximetry (%) 11/02/19 11/02/19 11/03/19 21:05 22:00 00:00 Temperature 100.1 F H Pulse Rate 87 72 Respiratory 17 20 17 Rate Blood Pressure 130/70 86/53 L O2 Sat by Pulse 97 99 100 Oximetry (%) 11/03/19 11/03/19 11/03/19 02:00 04:00 08:00 Temperature 97.5 F L 98.6 F Pulse Rate 62 87 99 H Respiratory 22 H 21 H 18 Rate Blood Pressure 119/70 116/93 134/77 O2 Sat by Pulse 100 100 100 Oximetry (%) 11/03/19 11/03/19 11/03/19 09:00 10:00 12:00 Temperature 98.5 F 98.3 F Pulse Rate 107 H 75 Respiratory 18 18 17 Rate Blood Pressure 131/86 101/74 O2 Sat by Pulse 95 95 100 Oximetry (%) 11/03/19 11/03/19 11/03/19 14:00 16:00 18:00 Temperature 98.1 F 98.0 F 97.6 F Pulse Rate 79 67 66 Respiratory 21 H 21 H 21 H Rate Blood Pressure 140/122 H 121/74 90/54 L O2 Sat by Pulse 100 100 100 Oximetry (%) 11/03/19 11/03/19 11/03/19 21:00 21:27 23:00 Temperature Pulse Rate 62 78 95 H Respiratory 18 14 13 Rate Blood Pressure 81/48 L 122/72 126/92 O2 Sat by Pulse 97 100 98 Oximetry (%) 11/04/19 11/04/19 11/04/19 03:00 06:00 08:35 Temperature 99.4 F 99.3 F Pulse Rate 83 94 H 116 H Respiratory 20 16 24 H Rate Blood Pressure 151/95 151/76 170/116 H O2 Sat by Pulse 99 100 Oximetry (%) 11/04/19 11/04/19 11/04/19 08:48 09:00 11:18 Temperature Pulse Rate 88 Respiratory 20 Rate Blood Pressure 158/114 H 123/74 O2 Sat by Pulse 100 Oximetry (%) 11/04/19 11/04/19 11/04/19 11:33 14:09 14:49 Temperature Pulse Rate 80 82 72 Respiratory 18 18 Rate Blood Pressure 80/55 L 102/61 O2 Sat by Pulse 98 Oximetry (%) 11/04/19 11/04/19 11/04/19 14:51 16:00 21:00 Temperature 97.5 F L Pulse Rate Respiratory 20 Rate Blood Pressure O2 Sat by Pulse 98 97 Oximetry (%) 11/04/19 11/05/19 11/05/19 22:00 01:47 06:00 Temperature 97.2 F L 99.6 F 98.5 F Pulse Rate 107 H 101 H 87 Respiratory 20 20 20 Rate Blood Pressure 127/80 116/56 L 126/88 O2 Sat by Pulse 97 97 95 Oximetry (%) 11/05/19 11/05/19 09:00 09:30 Temperature 97.7 F Pulse Rate 82 Respiratory 18 18 Rate Blood Pressure 142/75 O2 Sat by Pulse 95 95 Oximetry (%) Microbiology 11/01/19 19:50 Blood - Peripheral Venous Blood Culture - Preliminary NO GROWTH OBTAINED AFTER 72 HOURS, INCUBATION TO CONTINUE FOR 2 DAYS. 11/01/19 19:50 Blood - Peripheral Venous Blood Culture - Preliminary NO GROWTH OBTAINED AFTER 72 HOURS, INCUBATION TO CONTINUE FOR 2 DAYS. 11/02/19 14:00 Urine - Urine Morales Urine Culture - Final NO GROWTH OBTAINED 11/02/19 14:00 Urine For Antigen Detection Legionella Antigen - Final 11/02/19 14:00 Urine For Antigen Detection Streptococcus pneumoniae Antigen (M - Final Laboratory Results - last 24 hr 11/05/19 11/05/19 07:16 07:16 WBC 5.0 RBC 3.98 Hgb 12.0 Hct 35.9 MCV 90.2 MCH 30.2 MCHC 33.5 RDW 13.1 Plt Count 153 MPV 7.9 Absolute Neuts (auto) 3.1 Neutrophils % 60.9 Lymphocytes % 28.0 D Monocytes % 7.0 Eosinophils % 3.8 Basophils % 0.3 Nucleated RBC % 0 Sodium 143 Potassium 3.4 L Chloride 108 H Carbon Dioxide 26 Anion Gap 9 BUN 2.3 L* Creatinine 0.5 L Est GFR (CKD-EPI)AfAm 110.50 Est GFR (CKD-EPI)NonAf 95.34 Random Glucose 109 H Calcium 8.8 Phosphorus 3.0 Magnesium 2.1 Total Bilirubin 0.3 AST 18 ALT 13 Alkaline Phosphatase 74 Total Protein 5.4 L Albumin 2.2 L Home Medications Medication Instructions Recorded Mirtazapine 15 mg PO HS 11/15/16 Divalproex [Depakote -] 500 mg PO BID #60 tablet.ec 10/08/18 Risperidone [Risperdal -] 0.25 mg PO DAILY 11/01/19 Risperidone [Risperdal -] 0.5 mg PO HS 11/01/19 Current Medications Generic Name Dose Route Start Last Admin Trade Name Freq PRN Reason Stop Dose Admin Albuterol/Ipratropium 1 amp 11/04/19 16:44 Duoneb - NEB Q6H PRN SHORTNESS OF BREATH Heparin Sodium (Porcine) 5,000 unit 11/04/19 22:00 11/05/19 13:45 Heparin - SQ 5,000 unit TID VALE Administration Piperacillin Sod/Tazobactam 50 mls @ 100 mls/hr 11/02/19 18:00 11/05/19 09:19 Sod 3.375 gm/ Dextrose IVPB 100 mls/hr Q8H-IV VALE Administration Protocol Potassium Chloride/Dextrose/Sod Cl 20 meq in 1,000 mls @ 75 mls/hr 11/03/19 10:30 11/05/19 11:04 D5-1/2ns+20 Meq Kcl - IV Not Given ASDIR VALE Mirtazapine 15 mg 11/04/19 22:00 11/04/19 21:43 Remeron - PO 15 mg HS VALE Administration Risperidone 0.5 mg 11/04/19 22:00 11/04/19 21:43 Risperdal - PO 0.5 mg HS VALE Administration Risperidone 0.25 mg 11/05/19 10:00 11/05/19 11:03 Risperdal - PO 0.25 mg DAILY [facility] Administration Valproate Sodium 500 mg 11/04/19 22:00 11/05/19 10:59 Depacon Injection - IVPB 500 mg BID VALE Administration ASSESSMENT AND PLAN: 74 F Aspiration PNA UTI Septic shock, resolved Lactic Acidosis Seizure Disorder h/o COVID19 Dementia HTN HLD Mood disorder Plan: Cont. Zosyn, IVF and trending of lactate Check EKG to screen for QTc HOB elevation, chest PT, pulmonary toileting, speech and swallow evaluation Pulmonary/ICU following ID following DVT ppx: Heparin SC
--- NOTE | 2019-11-05 20:38 | PN ---
Progress Note, Physician Chief Complaint: AWAKE, NOT VERBALLY RESPONSIVE NO ACUTE DISTRESS BREATHING NON LABORED AFEBRILE WBC WNL CULTURES NO GROWTH - Current Medication List Current Medications: Active Medications Albuterol/Ipratropium (Duoneb -) 1 amp NEB Q6H PRN PRN Reason: SHORTNESS OF BREATH Heparin Sodium (Porcine) (Heparin -) 5,000 unit SQ TID [facility] Last Admin: 11/05/19 13:45 Dose: 5,000 unit Documented by: Piperacillin Sod/Tazobactam (Sod 3.375 gm/ Dextrose) 50 mls @ 100 mls/hr IVPB Q8H-IV VALE; Protocol Last Admin: 11/05/19 17:17 Dose: 100 mls/hr Documented by: Potassium Chloride/Dextrose/Sod Cl (D5-1/2ns+20 Meq Kcl -) 20 meq in 1,000 mls @ 75 mls/hr IV ASDIR [facility] Last Admin: 11/05/19 11:04 Dose: Not Given Documented by: Mirtazapine (Remeron -) 15 mg PO [facility] Last Admin: 11/04/19 21:43 Dose: 15 mg Documented by: Risperidone (Risperdal -) 0.5 mg PO [facility] Last Admin: 11/04/19 21:43 Dose: 0.5 mg Documented by: Risperidone (Risperdal -) 0.25 mg PO DAILY [facility] Last Admin: 11/05/19 11:03 Dose: 0.25 mg Documented by: Valproate Sodium (Depacon Injection -) 500 mg IVPB BID [facility] Last Admin: 11/05/19 10:59 Dose: 500 mg Documented by: - Objective Vital Signs: Vital Signs Temperature 98.1 F 11/05/19 17:34 Pulse Rate 79 11/05/19 17:34 Respiratory Rate 18 11/05/19 17:34 Blood Pressure 113/73 11/05/19 17:34 O2 Sat by Pulse Oximetry (%) 98 11/05/19 17:34 Constitutional: Yes: No Distress Eyes: Yes: Conjunctiva Clear Cardiovascular: Yes: Regular Rate and Rhythm, S1, S2 Respiratory: Yes: CTA Bilaterally, Diminished Gastrointestinal: Yes: Normal Bowel Sounds, Soft. No: Tenderness Labs: CBC, BMP 11/05/19 07:16 11/05/19 07:16 INR, PTT INR 1.19 (0.83-1.09) H 11/02/19 06:23 Assessment/Plan PROBABLE ASP PNEUMONIA R/O SEPSIS SECONDARY TO PNEUMONIA UTI LACTIC ACIDOSIS RESOLVED OBS CONTINUE EMPIRIC ZOSYN
[2019-11-05] MEDS: MIRTAZAPINE 15 MG TABLET (FP) PO SCH (21:48)
[2019-11-05] MEDS: risperiDONE 0.5 MG TABLET PO SCH (21:48)
[2019-11-06] MEDS ORDERED: DEXTROSE 5%-WATER - 50 ML IVPB ONE ×2 (01:14→09:46)
[2019-11-06] MEDS ORDERED: PIPERACILLIN/TAZOBACTAM 3.375 GM VIAL IVPB ONE ×2 (01:14→09:46)
[2019-11-06] MEDS: PIPERACILLIN/TAZOB 3.375 GM 3.375 GM in DEXTROSE 5%-WATER - 50 ML IVPB SCH ×2 (01:16→09:55)
[2019-11-06] MEDS: HEPARIN NA (PORCINE) 5,000 UNITS/ML 1ML VIAL SQ SCH ×3 (05:39→21:37)
[2019-11-06] MEDS: D5-1/2NS+20 MEQ KCL - 20 MEQ/1,000 ML INFUS.BAG IV SCH ×2 (05:43→20:50)
[2019-11-06] MEDS ORDERED: PT OWN MED DRAWER 7, Y5N ONE ×3 (09:46→20:45)
[2019-11-06] MEDS: risperiDONE 0.25 MG TABLET PO SCH (09:56)
[2019-11-06 10:22] LABS: CALCIUM 9.5 mg/dL (8.5-10.1); CREATININE 0.6 mg/dL (0.55-1.3); MAGNESIUM 2.1 mg/dL (1.8-2.4); POTASSIUM 3.8 mmol/L (3.5-5.1)
--- NOTE | 2019-11-06 10:27 | PN ---
Progress Note, DIGESTER OPERATOR - Note Progress Note: Pt remains npo except meds crushed, placed in applesauce. Moaning/phonating with eyes open. Overtly tolerating med in applesauce. Reassessed with very delayed mouth closure, delayed swallow. Consider Ensure pudding trial for pleasure feeds. Feed very slowly and wait for swallow before next trial. NPO if difficultyt observed. Pending d/c to home hospice.
[2019-11-06 10:48] LABS: BLOOD UREA NITROGEN 1.7 mg/dL (7-18)
[2019-11-06] MEDS: VALPROATE SODIUM 500 MG/5 ML VIAL IVPB SCH ×2 (11:00→21:37)
--- NOTE | 2019-11-06 12:54 | PN ---
Progress Note, Physician History of Present Illness: pulmonary sleeping on nasal o2,-resp distress - Current Medication List Current Medications: Active Medications Albuterol/Ipratropium (Duoneb -) 1 amp NEB Q6H PRN PRN Reason: SHORTNESS OF BREATH Heparin Sodium (Porcine) (Heparin -) 5,000 unit SQ TID [facility] Last Admin: 11/06/19 05:39 Dose: 5,000 unit Documented by: Piperacillin Sod/Tazobactam (Sod 3.375 gm/ Dextrose) 50 mls @ 100 mls/hr IVPB Q8H-IV VALE; Protocol Last Admin: 11/06/19 09:55 Dose: 100 mls/hr Documented by: Potassium Chloride/Dextrose/Sod Cl (D5-1/2ns+20 Meq Kcl -) 20 meq in 1,000 mls @ 75 mls/hr IV ASDIR [facility] Last Admin: 11/06/19 05:43 Dose: 75 mls/hr Documented by: Mirtazapine (Remeron -) 15 mg PO [facility] Last Admin: 11/05/19 21:48 Dose: 15 mg Documented by: Risperidone (Risperdal -) 0.5 mg PO [facility] Last Admin: 11/05/19 21:48 Dose: 0.5 mg Documented by: Risperidone (Risperdal -) 0.25 mg PO DAILY [facility] Last Admin: 11/06/19 09:56 Dose: 0.25 mg Documented by: Valproate Sodium (Depacon Injection -) 500 mg IVPB BID [facility] Last Admin: 11/06/19 11:00 Dose: 500 mg Documented by: - Objective Vital Signs: Vital Signs Temperature 97.6 F 11/06/19 06:00 Pulse Rate 75 11/06/19 06:00 Respiratory Rate 18 11/06/19 06:00 Blood Pressure 119/74 11/06/19 06:00 O2 Sat by Pulse Oximetry (%) 97 11/06/19 06:00 Constitutional: Yes: Thin, Other (sleeping) Eyes: Yes: WNL HENT: Yes: WNL Neck: Yes: WNL Cardiovascular: Yes: Regular Rate and Rhythm, S1, S2 Respiratory: Yes: Diminished Gastrointestinal: Yes: Normal Bowel Sounds, Soft Extremities: Yes: WNL Edema: No Labs: CBC, BMP 11/05/19 07:16 11/06/19 08:50 INR, PTT INR 1.19 (0.83-1.09) H 11/02/19 06:23 Problem List - Problems (1) Hypoxia Code(s): R09.02 - HYPOXEMIA (2) Pneumonia Code(s): J18.9 - PNEUMONIA, UNSPECIFIED ORGANISM Qualifiers: Pneumonia type: due to unspecified organism (3) Alzheimer disease Code(s): G30.9 - ALZHEIMER'S DISEASE, UNSPECIFIED Qualifiers: Alzheimer's disease onset: unspecified onset Dementia behavioral disturbance: with behavioral disturbance Qualified Code(s): G30.9 - Alzheimer's disease, unspecified; F02.81 - Dementia in other diseases classified elsewhere with behavioral disturbance Assessment/Plan SSESSMENT AND PLAN: Pneumonia likely Aspiration UTI Sepsis Lactic Acidosis Seizure Disorder h/o COVID19 Dementia - PO antibiotics per ID - O2 to keep SpO2 >90% - aspiration precautions - VTE prophylaxis - hospice care DR AC
--- NOTE | 2019-11-06 12:54 | PN ---
Progress Note, Physician Chief Complaint: AWAKE, NOT VERBALLY RESPONSIVE NO ACUTE DISTRESS BREATHING NON LABORED AFEBRILE WBC WNL CULTURES NO GROWTH - Current Medication List Current Medications: Active Medications Albuterol/Ipratropium (Duoneb -) 1 amp NEB Q6H PRN PRN Reason: SHORTNESS OF BREATH Heparin Sodium (Porcine) (Heparin -) 5,000 unit SQ TID [facility] Last Admin: 11/06/19 05:39 Dose: 5,000 unit Documented by: Piperacillin Sod/Tazobactam (Sod 3.375 gm/ Dextrose) 50 mls @ 100 mls/hr IVPB Q8H-IV [facility]; Protocol Last Admin: 11/06/19 09:55 Dose: 100 mls/hr Documented by: Potassium Chloride/Dextrose/Sod Cl (D5-1/2ns+20 Meq Kcl -) 20 meq in 1,000 mls @ 75 mls/hr IV ASDIR [facility] Last Admin: 11/06/19 05:43 Dose: 75 mls/hr Documented by: Mirtazapine (Remeron -) 15 mg PO [facility] Last Admin: 11/05/19 21:48 Dose: 15 mg Documented by: Risperidone (Risperdal -) 0.5 mg PO [facility] Last Admin: 11/05/19 21:48 Dose: 0.5 mg Documented by: Risperidone (Risperdal -) 0.25 mg PO DAILY [facility] Last Admin: 11/06/19 09:56 Dose: 0.25 mg Documented by: Valproate Sodium (Depacon Injection -) 500 mg IVPB BID [facility] Last Admin: 11/06/19 11:00 Dose: 500 mg Documented by: - Objective Vital Signs: Vital Signs Temperature 97.6 F 11/06/19 06:00 Pulse Rate 75 11/06/19 06:00 Respiratory Rate 18 11/06/19 06:00 Blood Pressure 119/74 11/06/19 06:00 O2 Sat by Pulse Oximetry (%) 97 11/06/19 06:00 Constitutional: Yes: No Distress Cardiovascular: Yes: Regular Rate and Rhythm, S1, S2 Respiratory: Yes: Diminished Gastrointestinal: Yes: Normal Bowel Sounds, Soft. No: Tenderness Labs: CBC, BMP 11/05/19 07:16 11/06/19 08:50 INR, PTT INR 1.19 (0.83-1.09) H 11/02/19 06:23 Assessment/Plan PROBABLE ASP PNEUMONIA R/O SEPSIS SECONDARY TO PNEUMONIA UTI LACTIC ACIDOSIS RESOLVED OBS SUBSTITUTE PO AUGMENTIN X 2 DAYS
--- NOTE | 2019-11-06 13:04 | PN ---
Teaching Attending Note Name of Resident: Estefani Fraga ATTENDING PHYSICIAN STATEMENT I saw and evaluated the patient. I reviewed the resident's note and discussed the case with the resident. I agree with the resident's findings and plan as documented. SUBJECTIVE: pt seen and examined at bedside OBJECTIVE: Last Vital Signs Temp Pulse Resp BP Pulse Ox 97.6 F 75 18 119/74 97 11/06/19 06:00 11/06/19 06:00 11/06/19 06:00 11/06/19 06:00 11/06/19 06:00 GENERAL: Awake, alert, and fully oriented, in no acute distress. HEENT: AT/NC, not pale, cynaosed or jaundiced, neck supple no JVD. LUNGS: Breath sounds equal, clear to auscultation bilaterally. No wheezes, and no crackles. No accessory muscle use. HEART: Regular rate and rhythm, normal S1 and S2 without murmur, rub or gallop. ABDOMEN: Soft, nontender, not distended, normoactive bowel sounds, no guarding, no rebound, no masses. No hepatomegaly or splenomegaly. MUSCULOSKELETAL: Normal range of motion at all joints. No bony deformities or tenderness. No CVA tenderness. UPPER EXTREMITIES: 2+ pulses, warm, well-perfused. No cyanosis. No clubbing. No peripheral edema. LOWER EXTREMITIES: 2+ pulses, warm, well-perfused. No calf tenderness. No peripheral edema. NEUROLOGICAL: aphasia, not cooperating with neuroexam SKIN: Warm, dry, normal turgor, no rashes or lesions noted, normal capillary refill. CBCD WBC 5.0 K/mm3 (4.0-10.0) 11/05/19 07:16 RBC 3.98 M/mm3 (3.60-5.2) 11/05/19 07:16 Hgb 12.0 GM/dL (10.7-15.3) 11/05/19 07:16 Hct 35.9 % (32.4-45.2) 11/05/19 07:16 MCV 90.2 fl (80-96) 11/05/19 07:16 MCHC 33.5 g/dl (32.0-36.0) 11/05/19 07:16 RDW 13.1 % (11.6-15.6) 11/05/19 07:16 Plt Count 153 K/MM3 (134-434) 11/05/19 07:16 MPV 7.9 fl (7.5-11.1) 11/05/19 07:16 CMP Sodium 144 mmol/L (136-145) 11/06/19 08:50 Potassium 3.8 mmol/L (3.5-5.1) 11/06/19 08:50 Chloride 110 mmol/L (98-107) H 11/06/19 08:50 Carbon Dioxide 26 mmol/L (21-32) 11/06/19 08:50 Anion Gap 8 MMOL/L (8-16) 11/06/19 08:50 BUN 1.7 mg/dL (7-18) L* 11/06/19 08:50 Creatinine 0.6 mg/dL (0.55-1.3) 11/06/19 08:50 Random Glucose 105 mg/dL (74-106) 11/06/19 08:50 Calcium 9.5 mg/dL (8.5-10.1) 11/06/19 08:50 Total Bilirubin 0.3 mg/dL (0.2-1) 11/05/19 07:16 AST 18 U/L (15-37) 11/05/19 07:16 ALT 13 U/L (13-61) 11/05/19 07:16 Alkaline Phosphatase 74 U/L (45-117) 11/05/19 07:16 Total Protein 5.4 g/dl (6.4-8.2) L 11/05/19 07:16 Albumin 2.2 g/dl (3.4-5.0) L 11/05/19 07:16 CARDIAC ENZYMES Creatine Kinase 78 U/L (26-192) 11/01/19 19:50 Troponin I 0.04 ng/ml (0.00-0.05) 11/01/19 19:50 Active Medications Albuterol/Ipratropium (Duoneb -) 1 amp NEB Q6H PRN PRN Reason: SHORTNESS OF BREATH Amoxicillin/Clavulanate Potassium (Augmentin - 500mg Tablet) 1 tab PO BID@0800,1730 [facility] Heparin Sodium (Porcine) (Heparin -) 5,000 unit SQ TID [facility] Last Admin: 11/06/19 05:39 Dose: 5,000 unit Documented by: Potassium Chloride/Dextrose/Sod Cl (D5-1/2ns+20 Meq Kcl -) 20 meq in 1,000 mls @ 75 mls/hr IV ASDIR [facility] Last Admin: 11/06/19 05:43 Dose: 75 mls/hr Documented by: Mirtazapine (Remeron -) 15 mg PO HS [facility] Last Admin: 11/05/19 21:48 Dose: 15 mg Documented by: Risperidone (Risperdal -) 0.5 mg PO HS [facility] Last Admin: 11/05/19 21:48 Dose: 0.5 mg Documented by: Risperidone (Risperdal -) 0.25 mg PO DAILY [facility] Last Admin: 11/06/19 09:56 Dose: 0.25 mg Documented by: Valproate Sodium (Depacon Injection -) 500 mg IVPB BID [facility] Last Admin: 11/06/19 11:00 Dose: 500 mg Documented by: ASSESSMENT AND PLAN: 74 YO lady with Mx of Alzheimers (non-verbal, bedbound at baseline), previous covid 19, seizures disorder presents to the ED due to shortness of breath after eating oatmeal, to which her reported that he heard gurgling sounds. Admitted to ICU for sepsis secondary to aspiration vs. UTI. # Sepsis due to Aspiration Pneumonia - currently resolved - afebrile, no WBC, negative cultures - aspiration precaution, seizure precautions Seizure Disorder h/o COVID19 advanced Dementia DNR/DNI DVT prophylaxis Plan for hospice care, [place] [facility]
--- NOTE | 2019-11-06 14:23 | DS ---
Physical Exam: SUBJECTIVE: Patient seen and examined OBJECTIVE: Vital Signs Temperature 97.6 F 11/06/19 06:00 Pulse Rate 75 11/06/19 06:00 Respiratory Rate 18 11/06/19 06:00 Blood Pressure 119/74 11/06/19 06:00 O2 Sat by Pulse Oximetry (%) 97 11/06/19 06:00 PHYSICAL EXAM GENERAL: The patient is awake, alert, and nonverbal (at baseline). NECK: supple. LUNGS: Decreased breath sounds on bilateral bases HEART: Regular rate and rhythm, S1, S2 ABDOMEN: Soft, nontender, nondistended, normoactive bowel sounds EXTREMITIES: 2+ pulses, warm, well-perfused, no edema. SKIN: Warm, dry, normal turgor LABS Laboratory Results - last 24 hr 11/06/19 08:50 Sodium 144 Potassium 3.8 Chloride 110 H Carbon Dioxide 26 Anion Gap 8 BUN 1.7 L* Creatinine 0.6 Est GFR (CKD-EPI)AfAm 104.07 Est GFR (CKD-EPI)NonAf 89.79 Random Glucose 105 Calcium 9.5 Phosphorus 3.0 Magnesium 2.1 HOSPITAL COURSE: Date of Admission:11/01/19 Date of Discharge: 11/06/19 Patient is a 74 yo F with PMH Alzheimer's (nonverbal and bedbound at baseline), seizure disorders, previous COVID 19 diagnosis (07/2019), presented to the ED with SOB and admitted to ICU initially for sepsis and acute hypoxic respiratory failure secondary to aspiration PNA and UTI. Patient was given empiric IV antibiotics and placed on supplemental oxygen. Blood cultures/urine cultures unremarkable. She continued to improved throughout her hospital stay. Patient was evaluated by speech and swallow, was found to have severe swallowing dysfunction. Family opted no tube feeding. Patient was discharged to home hospice. Minutes to complete discharge: 36 Discharge Summary Problems reviewed: Yes Reason For Visit: HYPOXIA,SEPSIS,PNEUMONIA Current Active Problems Hypoxia (Acute) Pneumonia (Acute) Sepsis (Acute) Condition: Improved - Instructions Diet, Activity, Other Instructions: Your visit You were admitted to the hospital because you were found to have pneumonia and urinary tract infection. You were treated with IV antibiotics. You were also ev aluated by speech and swallow specialist, and noted that you have swallowing problems that likely caused you to aspirate and get the pneumonia. It is recommended to consider Ensure pudding trial for pleasure feeds. Feed very slowly and wait for swallow before next trial. Medications Please take the following medications as prescribed: 1. Augmentin 500/125mg twice a day for 2 more days starting tonight. Crush meds with apple sauce Please continue your other home medications. Follow up Please follow up with your primary care doctor in 1 week. Additional info Please call 911 or go to the emergency room if with any worsening fevers, chills, headache, dizziness, chest pain, shortness of breath, belly pain, or any new concerns noted. Referrals: Ramon Ivey MD [Staff Physician] - Arthur Webber MD [Non Staff, Medical] - Disposition: VNS/HOME HEALTH CARE - Home Medications Comprehensive Discharge Medication List: Ambulatory Orders Mirtazapine 15 mg PO HS 11/15/16 Divalproex [Depakote -] 500 mg PO BID #60 tablet.ec 10/08/18 Risperidone [Risperdal -] 0.25 mg PO DAILY 11/01/19 Risperidone [Risperdal -] 0.5 mg PO HS 11/01/19 Amox-Tr/K Cl [Augmentin 500-125mg Tablet -] 1 tab PO BID@0800,1730 #4 tablet 11/06/19 This patient is new to me today: No Emergency Visit: Yes ED Registration Date: 11/01/19 Care time: The patient presented to the Emergency Department on the above date and was hospitalized for further evaluation of their emergent condition. Critical Care patient: No - Discharge Referral [facility]erred to [facility] No ATTENDING PHYSICIAN STATEMENT I saw and evaluated the patient. I reviewed the resident's note and discussed the case with the resident. I agree with the resident's findings and plan as documented. SUBJECTIVE: OBJECTIVE: ASSESSMENT AND PLAN:
[2019-11-06] MEDS: AMOX TR/POT CLAV 500MG/125MG TABLETS (FP) PO SCH (17:44)
[2019-11-06] MEDS: MIRTAZAPINE 15 MG TABLET (FP) PO SCH (21:37)
[2019-11-06] MEDS: risperiDONE 0.5 MG TABLET PO SCH (21:37)
[2019-11-07] MEDS: HEPARIN NA (PORCINE) 5,000 UNITS/ML 1ML VIAL SQ SCH (05:08)
[2019-11-07] MEDS: VALPROATE SODIUM 500 MG/5 ML VIAL IVPB SCH (09:46)
[2019-11-07] MEDS: AMOX TR/POT CLAV 500MG/125MG TABLETS (FP) PO SCH (09:47)
[2019-11-07] MEDS: risperiDONE 0.25 MG TABLET PO SCH (09:52)
--- NOTE | 2019-11-07 10:10 | PN ---
Progress Note, Physician History of Present Illness: PULMONARY AWAKE,NON-VERBAL,-RESP DISTRESS - Current Medication List Current Medications: Active Medications Albuterol/Ipratropium (Duoneb -) 1 amp NEB Q6H PRN PRN Reason: SHORTNESS OF BREATH Amoxicillin/Clavulanate Potassium (Augmentin - 500mg Tablet) 1 tab PO BID@0800,1730 [facility] Last Admin: 11/07/19 09:47 Dose: 1 tab Documented by: Heparin Sodium (Porcine) (Heparin -) 5,000 unit SQ TID [facility] Last Admin: 11/07/19 05:08 Dose: 5,000 unit Documented by: Potassium Chloride/Dextrose/Sod Cl (D5-1/2ns+20 Meq Kcl -) 20 meq in 1,000 mls @ 75 mls/hr IV [facility] Last Admin: 11/06/19 20:50 Dose: 75 mls/hr Documented by: Mirtazapine (Remeron -) [address] [facility] Last Admin: 11/06/19 21:37 Dose: 15 mg Documented by: Risperidone (Risperdal -) 0.[address] [facility] Last Admin: 11/06/19 21:37 Dose: 0.5 mg Documented by: Risperidone (Risperdal -) 0.25 mg PO DAILY [facility] Last Admin: 11/07/19 09:52 Dose: 0.25 mg Documented by: Valproate Sodium (Depacon Injection -) 500 mg IVPB BID [facility] Last Admin: 11/07/19 09:46 Dose: 500 mg Documented by: - Objective Vital Signs: Vital Signs Temperature 98.5 F 11/07/19 07:16 Pulse Rate 84 11/07/19 07:16 Respiratory Rate 18 11/07/19 07:16 Blood Pressure 152/80 11/07/19 07:16 O2 Sat by Pulse Oximetry (%) 96 11/07/19 07:16 Constitutional: Yes: Calm, Thin Eyes: Yes: WNL HENT: Yes: WNL Neck: Yes: WNL Cardiovascular: Yes: Regular Rate and Rhythm, S1, S2 Respiratory: Yes: CTA Bilaterally, Other (POOR INSPIRATORY EFFORT) Gastrointestinal: Yes: Normal Bowel Sounds, Soft Extremities: Yes: WNL Edema: No Labs: CBC, BMP 11/05/19 07:16 11/06/19 08:50 INR, PTT INR 1.19 (0.83-1.09) H 11/02/19 06:23 Problem List - Problems (1) Hypoxia Code(s): R09.02 - HYPOXEMIA (2) Pneumonia Code(s): J18.9 - PNEUMONIA, UNSPECIFIED ORGANISM Qualifiers: Pneumonia type: due to unspecified organism (3) Alzheimer disease Code(s): G30.9 - ALZHEIMER'S DISEASE, UNSPECIFIED Qualifiers: Alzheimer's disease onset: unspecified onset Dementia behavioral disturbance: with behavioral disturbance Qualified Code(s): G30.9 - Alzheim er's disease, unspecified; F02.81 - Dementia in other diseases classified elsewhere with behavioral disturbance Assessment/Plan SSESSMENT AND PLAN: Pneumonia likely Aspiration clinically improved UTI Sepsis Lactic Acidosis Seizure Disorder h/o COVID19 Dementia - PO antibiotics per ID - O2 to keep SpO2 >90% - aspiration precautions - VTE prophylaxis - hospice care DR AC
[2019-11-07 11:23] VITALS: BP 138/83; PULSE 82; TEMP 98.4
--- NOTE | 2019-11-07 13:08 | PN ---
Teaching Attending Note Name of Resident: Estefani Fraga ATTENDING PHYSICIAN STATEMENT I saw and evaluated the patient. I reviewed the resident's note and discussed the case with the resident. I agree with the resident's findings and plan as documented. SUBJECTIVE: pt seen and examined OBJECTIVE: Last Vital Signs Temp Pulse Resp BP Pulse Ox 98.4 F 82 18 138/83 94 L 11/07/19 10:22 11/07/19 10:22 11/07/19 10:22 11/07/19 10:11/07/19 10:22 GENERAL: Awake, alert, and fully oriented, in no acute distress. HEENT: AT/NC, not pale, cynaosed or jaundiced, neck supple no JVD. LUNGS: Breath sounds equal, clear to auscultation bilaterally. No wheezes, and no crackles. No accessory muscle use. HEART: Regular rate and rhythm, normal S1 and S2 without murmur, rub or gallop. ABDOMEN: Soft, nontender, not distended, normoactive bowel sounds, no guarding, no rebound, no masses. No hepatomegaly or splenomegaly. MUSCULOSKELETAL: Normal range of motion at all joints. No bony deformities or tenderness. No CVA tenderness. UPPER EXTREMITIES: 2+ pulses, warm, well-perfused. No cyanosis. No clubbing. No peripheral edema. LOWER EXTREMITIES: 2+ pulses, warm, well-perfused. No calf tenderness. No peripheral edema. NEUROLOGICAL: aphasia, not cooperating with neuroexam SKIN: Warm, dry, normal turgor, no rashes or lesions noted, normal capillary refill. CBCD WBC 5.0 K/mm3 (4.0-10.0) 11/05/19 07:16 RBC 3.98 M/mm3 (3.60-5.2) 11/05/19 07:16 Hgb 12.0 GM/dL (10.7-15.3) 11/05/19 07:16 Hct 35.9 % (32.4-45.2) 11/05/19 07:16 MCV 90.2 fl (80-96) 11/05/19 07:16 MCHC 33.5 g/dl (32.0-36.0) 11/05/19 07:16 RDW 13.1 % (11.6-15.6) 11/05/19 07:16 Plt Count 153 K/MM3 (134-434) 11/05/19 07:16 MPV 7.9 fl (7.5-11.1) 11/05/19 07:16 CMP Sodium 144 mmol/L (136-145) 11/06/19 08:50 Potassium 3.8 mmol/L (3.5-5.1) 11/06/19 08:50 Chloride 110 mmol/L (98-107) H 11/06/19 08:50 Carbon Dioxide 26 mmol/L (21-32) 11/06/19 08:50 Anion Gap 8 MMOL/L (8-16) 11/06/19 08:50 BUN 1.7 mg/dL (7-18) L* 11/06/19 08:50 Creatinine 0.6 mg/dL (0.55-1.3) 11/06/19 08:50 Calcium 9.5 mg/dL (8.5-10.1) 11/06/19 08:50 Total Bilirubin 0.3 mg/dL (0.2-1) 11/05/19 07:16 AST 18 U/L (15-37) 11/05/19 07:16 ALT 13 U/L (13-61) 11/05/19 07:16 Alkaline Phosphatase 74 U/L (45-117) 11/05/19 07:16 Total Protein 5.4 g/dl (6.4-8.2) L 11/05/19 07:16 Albumin 2.2 g/dl (3.4-5.0) L 11/05/19 07:16 ASSESSMENT AND PLAN: 74 YO lady with Mx of Alzheimers (non-verbal, bedbound at baseline), previous covid 19, seizures disorder presents to the ED due to shortness of breath after eating oatmeal, to which her reported that he heard gurgling sounds. Ad mitted to ICU for sepsis secondary to aspiration vs. UTI. # Sepsis due to Aspiration Pneumonia - currently resolved - afebrile, no WBC, negative cultures - aspiration precaution, seizure precautions Seizure Disorder h/o COVID19 advanced Dementia DNR/DNI DVT prophylaxis Plan for hospice care, [place] [facility]
== END 2019-11-07 12:25 | disposition home health service (06) | DRG 871 ==
LOC: JER 19:37 → JERBED 21:20 → JICU 11-02 → J5S 11-04 16:07
PROVIDERS: ADMIT Internal Medicine Pulmonary Disease; ATTEND Student in an Organized Health Care Education/Training Program
DX: A41.89 Other specified sepsis (principal); R65.21 Severe sepsis with septic shock; J96.01 Acute respiratory failure with hypoxia; J69.0 Pneumonitis due to inhalation of food and vomit; R64 Cachexia; N39.0 Urinary tract infection, site not specified; E87.2 Acidosis; R50.9 Fever, unspecified; G30.9 Alzheimer's disease, unspecified; F02.80 Dementia in other diseases classified elsewhere, unspecified severity, without behavioral disturbance, psychotic disturbance, mood disturbance, and anxiety; Z68.21 Body mass index [BMI] 21.0-21.9, adult; G40.909 Epilepsy, unspecified, not intractable, without status epilepticus; R00.0 Tachycardia, unspecified; I10 Essential (primary) hypertension; E78.5 Hyperlipidemia, unspecified; F39 Unspecified mood [affective] disorder
CPT/HCPCS: 36415; 36600; 71045-TC-FY; 80048; 80053; 81003; 82248; 82550; 82728; 82803; 83605; 83615; 83735; 84100; 84484; 85025; 85610; 85730; 86140; 87040; 87086; 87899; 93005; 93010; 97161-GP; 99285-25; J0131; J1644; U0003